=== PATIENT | female | born 1960 | race Caucasian/White ===

== ENCOUNTER → 2016-11-04 | Outpatient (CLI) | payer BC, OTHER ==
[~2016-11-04] MED LIST: AZEL1.5M; CARV6.252 PO; CYCL10TA6 PO; IBUP-1427 PO; LISI-729 PO; LISI5TAB3 PO; LORA-741 PO; MULTTAB58 PO; ONDA8TAB6 PO; THIA100T11 PO; TRAM-10 PO; premarin cream
== END | disposition home or self-care (01) ==
LOC: C.CPL 12:34
PROVIDERS: ATTEND Orthopaedic Surgery
DX: Z01.810 Encounter for preprocedural cardiovascular examination (principal)

== ENCOUNTER 2017-02-13 11:29 | Emergency (ER) | payer BC ==
[~2017-02-13] VITALS: Ht 162.6 cm; Wt 66.2 kg
[~2017-02-13 11:29] MED LIST changes: -CYCL10TA6 PO; -LISI-729 PO; -ONDA8TAB6 PO
[2017-02-13 11:35] VITALS: TEMP 36.8; Ht 162.6 cm; Wt 66.2 kg
[2017-02-13] MEDS ORDERED: LISI-729 PO (11:46)
[2017-02-13] MEDS ORDERED: ONDA8TAB6 PO (11:46)
[2017-02-13 12:30] LABS: ISTAT CREATININE 0.8 mg/dl (0.6-1.3); ISTAT HEMOGLOBIN 13.9 g/dl (12.0-16.0); ISTAT IONIZED CALCIUM 1.24 mmol/l (1.12-1.32)
[2017-02-13] MEDS ORDERED: CYCL10TA6 PO (13:21)
[2017-02-13 14:05] VITALS: BP 145/90; PULSE 83; O2SAT 100
--- NOTE | 2017-02-13 20:23 | EMERGENCY ROOM VISIT NOTE ---
History First contact with patient: 11:52 Chief Complaint: BACK PAIN Stated Complaint: BACK SPASMS PAST WEEK, ANOREXIA/VOMITING History of Present Illness The patient is a 56 year old female who presents to the Emergency Room with complaints of lower back pain//, as well as poor appetite and intermittent vomiting. The patient reports that she has a history of chronic back pain. However, she believes that her back pain has recently been exacerbated after undergoing an extensive left shoulder surgery in October by Dr. Negrete. The patient reports that she has had to sleep on her right side. She denies any recent injury to her back. She has been seen by the [facility] for her back. She reports that they wanted to send her to [place] for further management. She has been unable to follow-up with her other appointments because of her surgery to the shoulder. She reports that she had to miss her last for physical therapy sessions for her shoulder because of her back. She did discuss this via telephone conversation with Dr. Negrete's office, and was told to try to continue with her physical therapy. The patient has been intermittently apply ice and using a TENS unit for her back. She will try to do some back exercises without any significant relief. She denies any pain extending into the buttocks or down the legs. She denies any chest pain, shortness of breath or abdominal pain. Her pain seems to be worsened with movement. She currently denies any discomfort. Review of Systems 10 system review was performed and was negative except for pertinent positives and negatives as indicated in history of present illness Past Medical/Surgical History Medical Problems: (1) Cardiac catheterization (2) History of - section Family History Cancer Heart disease Hypertension Social History Smoking Status: Never Smoker Alcohol Use: heavy Marital Status: Housing Status: lives with family Occupation Status: employed Current/Historical Medications Scheduled Carvedilol (Coreg), 6.25 MG PO BID Lisinopril (Zestril), 5 MG PO DAILY Multiple Vitamin (Multivitamin), 1 TABLET PO DAILY Thiamine Hcl (Vitamin B-1), 30 MG PO QAM Tramadol (Ultram), 1 TAB PO TID [premarin cream], 20 days monthly Scheduled PRN Azelastine HCl-Fluticasone Pro (Dermacinrx Azenase Anand 137 & 50 Mcg/Act), for prn Cyclobenzaprine Hcl (Flexeril), 10 MG PO TID PRN for spasm Ibuprofen Tab (Motrin), 1 TAB PO TID PRN for prn Lorazepam (Ativan), 0.5 MG PO for prn Ondansetron Hcl (Zofran), 8 MG PO Q8 PRN for Nausea Physical Exam Vital Signs Date Time Temp Pulse Resp B/P (MAP) Pulse Ox O2 Delivery O2 Flow Rate FiO2 02/13/17 14:05 83 145/90 100 02/13/17 11:35 36.8 90 16 126/87 98 Room Air Physical Exam CONSTITUTIONAL: Healthy and well nourished. Alert and oriented X 3 with positive affect. Patient does not appear in any acute distress. HEENT: Normocephalic, atraumatic. Pupils equal, round and reactive. No scleral icterus or conjunctival injection/pallor. NECK: Full active range of motion without discomfort. RESPIRATORY: Clear to auscultation bilaterally with no wheezing, crackles, rhonchi or stridor. CARDIOVASCULAR: Regular rate and rhythm with no murmurs, rubs or gallops. GASTROINTESTINAL: Bowel sounds present in all quadrants. Soft and nontender to palpation. MUSCULOSKELETAL: Examination shows mild tenderness to palpation through the central and lower lumbar paraspinous muscles. No palpable possible spasms for rigidity noted. No tenderness to palpation through the SI joints. Negative sitting straight leg raise. Negative logroll. Ankle plantar/dorsiflexion strength is 5 out of 5 and symmetric bilaterally. INTEGUMENTARY: No rash or other significant dermatologic conditions noted. Specifically the patient has no thoracic or lumbar dermatomal rashes. NEUROLOGIC: Lower extremity deep tendon reflexes are 2+ and symmetric bilaterally. Medical Decision & Procedures Laboratory Results Test 02/13/17 12:12 Bedside Hemoglobin 13.9 g/dl (12.0-16.0) Bedside Hematocrit 41 % (37-47) Bedside Sodium 132 mEq/L (135-144) Bedside Potassium 4.0 mEq/L (3.3-5.0) Bedside Chloride 96 mEq/L (101-112) Bedside Total CO2 25 mEq/l (24-31) Anion Gap 16.0 mmol/L (16-25) Bedside Blood Urea Nitrogen 7 mg/dl (7-18) Bedside Creatinine 0.8 mg/dl (0.6-1.3) Bedside Glucose (other) 102 mg/dl (70-99) Bedside Ionized Calcium (Loni) 1.24 mmol/l (1.12-1.32) I-STAT labs were reviewed, showing a mild hyponatremia. Potassium is normal. ED Course Patient history and physical exam were performed. Nurse's notes were reviewed. Vital signs were reviewed and were normal. I also reviewed prior electronic medical records, showing that the patient was seen at the [facility] on 09/06/2016. She was referred there from her PCP for polyarthritic pain and thoracic back pain. I explained to the patient that her symptoms are likely secondary to muscle irritability. She denies any recent trauma to warrant imaging studies. The patient is concerned that she may have electrolyte abnormalities that causing her muscle irritability. She attributes this to her poor appetite and vomiting, which she denies as any significant loss of fluids. I did elect to draw i-STAT labs, showing a mild hyponatremia, otherwise labs were normal. The patient was provided a prescription for Flexeril. She was encouraged to continue follow-up with her PCP for her back, and orthopedics for her Worker[employer] Compensation left shoulder management. She is welcome to return to the [facility] partner for an significant worsening pain, fever, abdominal pain or other concerning symptoms. The patient was happy with plan of care, and continued to deny any significant pain at the time of discharge. Medical Decision Medication Reconcilliation Current Medication List: was personally reviewed by me Blood Pressure Screening Patient's blood pressure: Normal blood pressure Impression Primary Impression: Strain of lumbar region Departure Information Prescriptions Cyclobenzaprine Hcl (FLEXERIL) 10 Mg Tab 10 MG PO TID Y for spasm, #15 TAB Prov: Markus Jones PA 02/13/17 Referrals No Doctor, Assigned (PCP) Patient Instructions My [facility] Problem Qualifiers Primary Impression: Strain of lumbar region Encounter type: initial encounter Qualified Codes: S39.012A - Strain of muscle, fascia and tendon of lower back, initial encounter
== END 2017-02-13 14:11 | disposition home or self-care (01) ==
LOC: C.EDB 11:30 → C.EDD 14:11
DX: S39.012A Strain of muscle, fascia and tendon of lower back, initial encounter (principal); X58.XXXA Exposure to other specified factors, initial encounter; G89.29 Other chronic pain; Z80.9 Family history of malignant neoplasm, unspecified; Z82.49 Family history of ischemic heart disease and other diseases of the circulatory system; Z79.899 Other long term (current) drug therapy

== ENCOUNTER 2020-09-15 15:24 | Inpatient (IN) ==
[2020-09-15] MEDS ORDERED: SODIUM CHLORIDE 0.9% 1000ML 1,000 ML IV ONE (16:14)
[2020-09-15] MEDS ORDERED: ONDANSETRON INJ 2 MG/ML 2 ML VIAL IV STA (16:14)
[2020-09-15] MEDS ORDERED: KETOROLAC TROMETHAMINE 15 MG/ML VIAL IV STA (16:14)
[2020-09-15 16:40] LABS: Basophils # (auto) 0.01 K/uL (0-0.2); Basophils % (auto) 0.1 %; Eosinophils # (auto) 0.13 K/uL (0-0.5); Eosinophils % (auto) 0.9 %; Hematocrit (blood only) 36.6 % (37-47); Hemoglobin 12.7 g/dL (12.0-16.0); Immature Granulocytes # (auto) 0.02 K/uL (0.00-0.02); Immature Granulocytes % (auto) 0.1 %; Lymphocytes % (auto) 10.9 %; Mean Corpuscular Hgb Conc 34.7 g/dL (32-36); Mean Corpuscular Volume 92.2 fL (80-100); Mean Platelet Volume 9.6 fL (7.4-10.4); Monocytes % (auto) 10.2 %; Neutrophils # (auto) 11.42 K/uL (1.4-6.5); Neutrophils % (auto) 77.8 %; Platelet Count 189 K/uL (130-400); RDW Standard Deviation 43.7 fL (36.4-46.3); Red Blood Count 3.97 M/uL (4.2-5.4); White Blood Count 14.68 K/uL (4.8-10.8)
[2020-09-15 16:56] LABS: Albumin Level 3.4 gm/dl (3.4-5.0); BUN Creatinine Ratio 17.8 (10-20); Bilirubin Direct 0.2 mg/dl (0-0.2); Calcium 9.7 mg/dl (8.5-10.1); Creatinine Clr Calc Pharmacy 94.2 ml/min; Est GFR (African American) 118.8; Est GFR (Non-African American) 102.5; Potassium 3.5 mmol/L (3.5-5.1)
[2020-09-15 16:59] LABS: Bilirubin,Total 0.7 mg/dl (0.2-1); Total Protein 7.4 gm/dl (6.4-8.2)
[2020-09-15 17:05] LABS: Appearance Urine Clear (Clear); Bacteria Urine Automated Negative (Negative); Blood Urine Trace (Negative); Color Urine Orange; Epithelial Cell Urine Auto >30 /lpf (0-5); Glucose Urine UA Negative (Negative); Ketones Urine 1+ (Negative); Leukocyte Esterase Urine Trace (Negative); Nitrite Urine Positive (Negative); Protein Urine 2+ (Negative); Specific Gravity Urine 1.032 (1.000-1.030); Urobilinogen Urine Negative (Negative)
[2020-09-15 17:06] LABS: Bilirubin Urine 1+ (Negative)
[2020-09-15 18:21] LABS: Influenza A virus by PCR Negative (Neg); Influenza B virus by PCR Negative (Neg); RSV by PCR Negative (Neg); SARS CoV2 RNA(COVID-19) InHosp NEGATIVE (Negative)
[2020-09-15] MEDS ORDERED: HYDROmorphone INJ 0.5 MG/0.5 ML SYR IV PRN (18:28)
[2020-09-15] MEDS ORDERED: ONDANSETRON INJ 2 MG/ML 2 ML VIAL IV PRN (18:28)
--- NOTE | 2020-09-15 18:46 | History & Physical Report ---
Date of Service September 15, 2020 Assessment & Plan (1) Acute pericarditis: Abdominal pain since Monday with nausea and vomiting no diarrhea Ultrasound evidence of dilated common duct without any stones with mild dilatation of the pancreatic duct as an outpatient CT scan did show mildly dilated fluid-filled small bowel loops with early SBO and minimal ascites Lipase elevated to more than 3000 We will keep her n.p.o. Intravenous fluid and electrolyte replacement IV pain medications and symptomatic medications We will get an MRCP done tomorrow and Fasting Lipid Profile GI consult tomorrow Leukocytosis Likely reactive Covid test has been negative We will monitor (2) Major depressive disorder: Remains stable We will continue current medications (3) Hypertension: We will continue lisinopril and carvedilol History of nonischemic cardiomyopathy Not having any cardiac symptoms now (4) History of alcohol dependence: No evidence of withdrawal (5) Solitary kidney: Has congenital absence of nenana left kidney GI prophylaxis We will give Protonix IV DVT prophylaxis Subcu Lovenox CODE STATUS Full History of Present Illness Chief Complaint: Abdominal pain since Monday last associated with nausea and vomiting Primary Care Provider: Piedad Chris MD She is a 59-year-old female with significant past medical history including major depressive disorder, uncomplicated alcohol dependence, history of nonischemic cardiomyopathy, solitary kidney on the right side and hypertension has been complaining of acute abdominal pain that started on Monday last. The pain was in the mid abdomen and that are associated with nausea and she has had vomiting couple of times since then. Denies any fever and/or chills. For the last 2 days she could not take anything much due to nausea and vomiting. Denies any alcohol intake. She has had an ultrasound done as an outpatient through her PCP which showed abnormalities as mentioned below and she was sent in to the ER for further evaluation' She was noted to be tachycardic in the emergency room, afebrile with abdominal pain and her lipase was noted to be high at 3320. She was admitted to [facility] telemetry unit for continuation of care Allergies Allergy/AdvReac Type Severity Reaction Status Date / Time ampicillin Allergy Intermediate HIVES Unverified 09/15/20 17:32 Penicillins Allergy Unknown Unknown Verified 09/15/20 17:32 Home Medications Medication Instructions Recorded Confirmed Type buprenorphine-naloxone 1 tab SUBLINGUAL QAM 12/15/19 09/15/20 History carvedilol [Coreg] 6.25 mg PO BID 12/15/19 09/15/20 History hydroxyzine HCl 5 mg PO BID PRN 12/15/19 09/15/20 History ipratropium bromide 2 spray INTRANASAL TID PRN 12/15/19 09/15/20 History lisinopril 5 mg PO PM 12/15/19 09/15/20 History meloxicam 7.5 mg PO DAILY 09/15/20 09/15/20 History vitamin B complex [B Complex] 1 tab PO QAM 09/15/20 09/15/20 History Past Med/Surg History Medical History (Updated 09/15/20 @ 18:41 by Alfredo Alex MD) Alcohol dependence Social History Smoking Status: Never smoker Feels Safe at Home: Yes Review of Systems Review of Systems: All systems reviewed & are unremarkable except as noted in HPI & below Physical Exam Physical Exam: Lying in bed very anxious with minimal pain in the abdomen Constitutional: well developed, well nourished and + ill appearing Eyes: PERRL, conjunctivae normal, anicteric sclerae ENMT: external ear and nose normal, oropharynx normal Neck: trachea midline, no thyromegaly Respiratory: no respiratory distress Auscultation: lungs clear to auscultation bilaterally Cardiovascular: Rate/Rhythm: regular rate and regular rhythm Heart Sounds: no murmur Gastrointestinal (Abdomen): Inspection/Auscultation: normal bowel sounds; abdomen not distended Percussion/Palpation: + abdomen tender (Minimally tender in the epigastrium) and abdomen soft Musculoskeletal: No acute arthritis in any joint Neurologic: Alert, awake and oriented x3. No focal sensory and motor deficit appreciated Psychiatric: A+Ox3, euthymic affect Lymphatic: no cervical or axillary lymphadenopathy Results & Data Results & Data ([facility]) Vital Signs (Past 12 Hours) Vital Signs Temp Pulse Resp BP Pulse Ox 09/15/20 17:30 105 H 23 143/96 H 97 09/15/20 17:00 109 H 21 149/82 H 98 09/15/20 16:30 105 H 19 145/91 H 97 09/15/20 16:22 107 H 24 150/93 H 100 09/15/20 15:27 36.1 C L 89 16 136/85 99 Laboratory Results Short CBC 09/15/20 Range/Units 16:30 WBC 14.68 H (4.8-10.8) K/uL Hgb 12.7 (12.0-16.0) g/dL Hct 36.6 L (37-47) % Plt Count 189 (130-400) K/uL BMP 09/15/20 16:30 Sodium 132 L Potassium 3.5 Chloride 97 L Carbon Dioxide 29 BUN 10 Creatinine 0.53 L Glucose 122 H Calcium 9.7 Liver Function 09/15/20 Range/Units 16:30 Total Bilirubin 0.7 (0.2-1) mg/dl Direct Bilirubin 0.2 (0-0.2) mg/dl AST 33 (15-37) U/L ALT 60 (12-78) U/L Alkaline Phosphatase 83 (45-117) U/L Albumin 3.4 (3.4-5.0) gm/dl Urine 09/15/20 Range/Units 16:30 Urine Color [place] Urine Appearance Clear (Clear) Urine pH 6.0 (4.5-7.5) Ur Specific [place] 1.032 H (1.000-1.030) Urine Protein 2+ H (Negative) Urine Glucose (UA) Negative (Negative) Diagnostic Findings CT of the abdomen and pelvis: IMPRESSION: 1. Multiple mildly dilated fluid-filled small bowel loops containing air-fluid levels. There is infiltration of the lower abdominal small bowel mesentery and there is low volume ascites. The distal ileum is of normal caliber. The findings are indicative of an early or partial small bowel obstruction. There is no pneumatosis. There is no portal venous gas. 2. Absent left kidney Medications Administered Current Inpatient Medications Enoxaparin Sodium (Enoxaparin Inj 40 Mg/0.4 Ml Syr) 40 mg SQ Q24H SANJUANA Stop: 10/15/20 18:29 Hydromorphone HCl (Hydromorphone Inj 0.5 Mg/0.5 Ml Syr) 0.5 mg IV Q4H PRN PRN Reason: Pain Stop: 09/29/20 18:27 Potassium Chloride/Dextrose/Sod Cl (D5nss + 20meq Kcl) 20 meq in 1,000 mls @ 125 mls/hr IV .Q8H SANJUANA Stop: 10/15/20 18:29 Ondansetron HCl (Ondansetron Inj 2 Mg/Ml 2 Ml Vial) 4 mg IV Q6H PRN PRN Reason: Nausea And Vomiting Stop: 10/15/20 18:29 Code Status & VTE Plan VTE Prophylaxis Plan VTE Prophylaxis will be ordered: Yes
[2020-09-15] MEDS: ENOXAPARIN INJ 40 MG/0.4 ML SYR SQ SCH (19:23)
[2020-09-15] MEDS: D5NSS + 20MEQ KCL 20 MEQ/1,000 ML BAG IV SCH (19:23)
--- NOTE | 2020-09-15 20:20 | XRay Report ---
XR abdomen 2V w PA chest CLINICAL HISTORY: epigastric pain COMPARISON STUDY: 01/02/2020 FINDINGS: Erect chest reveals no free air. There is no focal pulmonary consolidation. Erect and supin e views the abdomen reveal mild gaseous prominence the colon. There are no transition zones to indica te bowel obstruction. IMPRESSION: No evidence of bowel obstruction. No evidence of free air. ACT 112: Negative or not required by law. Electronically signed by: Deshawn Charles M.D. 09/15/2020 8:19 PM
[2020-09-15] MEDS ORDERED: IPRATROPIUM BROMIDE NASAL SPRAY 0.06% 15ML NAE PRN (21:14)
[2020-09-15] MEDS ORDERED: hydrOXYzine HCl 10 MG TAB PO PRN (21:14)
[2020-09-15] MEDS ORDERED: PANTOprazole 40 MG in SYRINGE 0 ML IV ONE (21:30)
[2020-09-15] MEDS: carvediloL 6.25 MG TAB PO SCH (21:53)
[2020-09-15] MEDS: lisinopril 5 MG TAB PO SCH (21:54)
--- NOTE | 2020-09-16 01:32 | Emergency Department Note ---
History of Present Illness General Chief Complaint: Abdominal Pain Stated Complaint: REFERRED BY DR. SHIPMAN Time Seen by Provider: 09/15/20 16:11 History of Present Illness Provider Complaint: abdominal pain Onset (ago): 2 day(s) Pain Consistency: constant Location: epigastric Radiation: none Severity: moderate Maximum Pain Intensity: 8 Current Pain Intensity: 8 Quality: + stabbing and + sharp Relieved By: + nothing Exacerbated By: + nothing Context: no foreign travel, no possible food poisoning, no sick contacts, no recent antibiotic use and no recent surgery/procedure Associated Symptoms: + nausea and + vomiting; no diarrhea, no fever, no chills, no constipation, no dysuria, no hematemesis, no hematochezia, no melena, no hematuria, no anorexia, no headache, no neck pain, no back pain, no chest pain, no weakness and no breathing difficulty Home Medications Medication Instructions Recorded Confirmed Type buprenorphine-naloxone 1 tab SUBLINGUAL QAM 12/15/19 09/15/20 History carvedilol [Coreg] 6.25 mg PO BID 12/15/19 09/15/20 History hydroxyzine HCl 5 mg PO BID PRN 12/15/19 09/15/20 History ipratropium bromide 2 spray INTRANASAL TID PRN 12/15/19 09/15/20 History lisinopril 5 mg PO PM 12/15/19 09/15/20 History meloxicam 7.5 mg PO DAILY 09/15/20 09/15/20 History vitamin B complex [B Complex] 1 tab PO QAM 09/15/20 09/15/20 History Allergies Allergy/AdvReac Type Severity Reaction Status Date / Time ampicillin Allergy Intermediate HIVES Unverified 09/15/20 17:32 Penicillins Allergy Unknown Unknown Verified 09/15/20 17:32 Past Med/Surg History Medical History (Updated 09/16/20 @ 01:32 by Jose L Arenas) Acute pericarditis (Unknown) Alcohol dependence Major depressive disorder No pertinent family history Solitary kidney Surgical History (Updated 09/16/20 @ 01:27 by Jose L Arenas) No pertinent past surgical history Social History Smoking Status: Never smoker Hx Alcohol Use: Yes Alcohol type: beer Hx Substance Use: Yes Substance Use Type Other:: Quit 1982 Preferred Language: Wolof Beliefs That Will Affect Care: None Current Living Situation: Spouse and Family Feels Safe at Home: Yes Safety Concerns: Feels Safe At This Time Assistive Devices: Hearing Aid - Bilateral Review of Systems A total of 10 systems reviewed and were otherwise negative Physical Exam Vital Signs: Vital Signs - 24 hr 09/15/20 15:27 09/15/20 16:22 09/15/20 16:30 Temperature 36.1 C L Temperature Source Temporal Artery Sc an Pulse Rate 89 107 H 105 H Pulse Rate from Sp O2 Sensor 108 H 106 H Respiratory Rate 16 24 19 Respiratory Effort / Characteristics Non-Labored Respiratory Depth Normal Blood Pressure 136/85 150/93 H 145/91 H Blood Pressure Hilda n 102 112 109 Pulse Oximetry 99 100 97 Oxygen Delivery Me thod Room Air Sepsis Recent Feve r Within 48 Hours No Sepsis New/Unexpla ined Change in Men erin Status No Sepsis Action Take n by Nursing No Action Required 09/15/20 16:33 09/15/20 17:00 09/15/20 17:30 Temperature Temperature Source Pulse Rate 109 H 105 H Pulse Rate from Sp O2 Sensor 110 H 107 H Respiratory Rate 21 23 Respiratory Effort / Characteristics Respiratory Depth Blood Pressure 149/82 H 143/96 H Blood Pressure Hilda n 104 111 Pulse Oximetry 98 97 Oxygen Delivery Me thod Room Air Sepsis Recent Feve r Within 48 Hours Sepsis New/Unexpla ined Change in Men erin Status Sepsis Action Take n by Nursing Physical Exam: Physical Exam GENERAL: She is oriented to person, place, and time. She appears well-developed and well-nourished. She does not appear distressed. HENT: Exam performed. -Head: Normocephalic and atraumatic. -Right Ear: External ear normal. No mastoid tenderness. -Left Ear: External ear normal. No mastoid tenderness. -Mouth/Throat: The oropharynx is clear and moist. No trismus in the jaw. No dental abscesses or uvula swelling. No oropharyngeal exudate or tonsillar abscesses. EYES: Conjunctivae and EOM are normal. Pupils are equal, round, and reactive to light. Right eye exhibits no discharge. Left eye exhibits no discharge. No scleral icterus. NECK: Normal range of motion. Neck supple. No JVD present. No spinous process tenderness present. No carotid bruit present. No rigidity. No tracheal deviation and normal range of motion present. No Brudzinski's sign and no Kernig's sign noted. CV: Normal rate, regular rhythm, normal heart sounds and intact distal pulses. There is no peripheral edema. Palpable radial pulses bue. PULM/CHEST: Effort normal and breath sounds normal. No respiratory distress. No stridor. She has no wheezes. She has no rales. -Chest Wall: She exhibits no tenderness. ABD: The abdomen is soft. Bowel sounds are normal. She has no distension. No mass is present. There is tenderness to palpation of the right upper quadrant and epigastric area. There is no rebound, no guarding, no Hawley's sign and no tenderness at McBurney's point. Rovsig negative MUSC/SKEL: Normal range of motion. There is no peripheral edema, tenderness or deformity. LYMPH: No cervical adenopathy. NEURO: She is alert and oriented to person, place, and time. She has normal strength. No cranial nerve deficit or sensory deficit. Coordination and gait normal. GCS eye subscore is 4. GCS verbal subscore is 5. GCS motor subscore is 6. Cerebellar tests wnl. SKIN: Skin is warm and dry. She is not diaphoretic. PSYCH: She has a normal mood and affect. Behavior is normal. Judgment and thought content normal. Course Course 1611: The patient was evaluated in room C9. A complete history and physical exam was performed Cardiac monitoring: An order was placed for continuous cardiac monitoring. The monitor shows a rate of 100 with sinus rhythm 1715: Vital signs stable. Patient had an outpatient ultrasound. Ultrasound was obtained by Yolanda salas which showed: Dilated common duct. No cholelithiasis visualized in the duct further evaluation by MRCP recommended. Mild prominence of the pancreatic duct. Attention recommended on follow-up MRCP. Labs show a leukocytosis of 14.68. Lipase is elevated at 3320. We will admit the patient to the [facility] hospitalist team Dr. Glenda estrada Administered Medications Carvedilol (Carvedilol 6.25 Mg Tab) 6.25 mg PO BID SANJUANA Stop: 10/15/20 21:13 Last Admin: 09/15/20 21:53 Dose: 6.25 mg Documented by: [id number] Enoxaparin Sodium (Enoxaparin Inj 40 Mg/0.4 Ml Syr) 40 mg SQ Q24H SANJUANA Stop: 10/15/20 18:29 Last Admin: 09/15/20 19:23 Dose: 40 mg Documented by: [id number] Potassium Chloride/Dextrose/Sod Cl (D5nss + 20meq Kcl) 20 meq in 1,000 mls @ 125 mls/hr IV .Q8H SANJUANA Stop: 10/15/20 18:29 Last Admin: 09/15/20 19:23 Dose: 125 mls/hr Documented by: [id number] Lisinopril (Lisinopril 5 Mg Tab) 5 mg PO PM SANJUANA Stop: 10/15/20 21:13 Last Admin: 09/15/20 21:54 Dose: 5 mg Documented by: [id number] Discontinued Medications Sodium Chloride (Nss 1000ml) 1,000 mls @ 999 mls/hr IV .Q1H1M ONE Stop: 09/15/20 17:14 Last Infusion: 09/15/20 17:35 Dose: 0 mls/hr Documented by: [id number] Admin: 09/15/20 16:23 Dose: 999 mls/hr Documented by: [id number] Pantoprazole Sodium 40 mg/ (Syringe) 10 mls @ 5 mls/min IV TODAY@2130 ONE Stop: 09/15/20 21:31 Last Admin: 09/15/20 21:54 Dose: 5 mls/min Documented by: [id number] Ketorolac Tromethamine (Ketorolac Tromethamine 15 Mg/Ml Vial) 15 mg IV NOW STA Stop: 09/15/20 16:15 Last Admin: 09/15/20 16:22 Dose: 15 mg Documented by: [id number] Ondansetron HCl (Ondansetron Inj 2 Mg/Ml 2 Ml Vial) 4 mg IV NOW STA Stop: 09/15/20 16:15 Last Admin: 09/15/20 16:22 Dose: 4 mg Documented by: [id number] Medical Decision Making Laboratory Data Result diagrams: 09/15/20 16:30 09/15/20 16:30 Lab Results 09/15/20 09/15/20 09/15/20 Range/Units 16:30 16:30 16:30 WBC 14.68 H (4.8-10.8) K/uL RBC 3.97 L (4.2-5.4) M/uL Hgb 12.7 (12.0-16.0) g/dL Hct 36.6 L (37-47) % MCV 92.2 (80-100) fL MCH 32.0 (25-34) pg MCHC 34.7 (32-36) g/dL RDW Std Deviation 43.7 (36.4-46.3) fL RDW Coeff of Evan 13.0 (11.5-14.5) % Plt Count 189 (130-400) K/uL MPV 9.6 (7.4-10.4) fL Immature Gran % (Auto) 0.1 % Neut % (Auto) 77.8 % Lymph % (Auto) 10.9 % [place] % (Auto) 10.2 % Eos % (Auto) 0.9 % Baso % (Auto) 0.1 % Neut # (Auto) 11.42 H (1.4-6.5) K/uL Lymph # (Auto) 1.60 (1.2-3.4) K/uL [place] # (Auto) 1.50 H (0.11-0.59) K/uL Eos # (Auto) 0.13 (0-0.5) K/uL Baso # (Auto) 0.01 (0-0.2) K/uL Immature Gran # (Auto) 0.02 (0.00-0.02) K/uL Sodium 132 L (136-145) mmol/L Potassium 3.5 (3.5-5.1) mmol/L Chloride 97 L (98-107) mmol/L Carbon Dioxide 29 (21-32) mmol/L Anion Gap 6.0 (3-11) BUN 10 (7-18) mg/dl Creatinine 0.53 L (0.6-1.2) mg/dl Est Cr Clr Drug Dosing 94.2 ml/min Est GFR ( Amer) 118.8 Est GFR (Non-Af Amer) 102.5 BUN/Creatinine Ratio 17.8 (10-20) Glucose 122 H (70-99) mg/dl Calcium 9.7 (8.5-10.1) mg/dl Total Bilirubin 0.7 (0.2-1) mg/dl Direct Bilirubin 0.2 (0-0.2) mg/dl AST 33 (15-37) U/L ALT 60 (12-78) U/L Alkaline Phosphatase 83 (45-117) U/L Total Protein 7.4 (6.4-8.2) gm/dl Albumin 3.4 (3.4-5.0) gm/dl Lipase 3320 H (73-393) U/L Urine Color [place] Urine Appearance Clear (Clear) Urine pH 6.0 (4.5-7.5) Ur Specific [place] 1.032 H (1.000-1.030) Urine Protein 2+ H (Negative) Urine Glucose (UA) Negative (Negative) Urine Ketones 1+ H (Negative) Urine Blood Trace H (Negative) Urine Nitrite Positive A (Negative) Urine Bilirubin 1+ H (Negative) Urine Urobilinogen Negative (Negative) Ur Leukocyte Esterase Trace H (Negative) Urine WBC (Auto) 10-30 H (0-5) /hpf Urine RBC (Auto) 5-10 H (0-4) /hpf U Hyaline Cast (Auto) 5-10 H (0-5) /lpf U Epithel Cells (Auto) >30 H (0-5) /lpf Urine Bacteria (Auto) Negative (Negative) COVID-19 Eval Order SARS-CoV-2 (PCR) (Negative) Influenza Type A (PCR) (Neg) Influenza Type B (PCR) (Neg) RSV (RT-PCR) (Neg) 09/15/20 09/15/20 Range/Units 17:28 17:28 WBC (4.8-10.8) K/uL RBC (4.2-5.4) M/uL Hgb (12.0-16.0) g/dL Hct (37-47) % MCV (80-100) fL MCH (25-34) pg MCHC (32-36) g/dL RDW Std Deviation (36.4-46.3) fL RDW Coeff of Evan (11.5-14.5) % Plt Count (130-400) K/uL MPV (7.4-10.4) fL Immature Gran % (Auto) % Neut % (Auto) % Lymph % (Auto) % [place] % (Auto) % Eos % (Auto) % Baso % (Auto) % Neut # (Auto) (1.4-6.5) K/uL Lymph # (Auto) (1.2-3.4) K/uL [place] # (Auto) (0.11-0.59) K/uL Eos # (Auto) (0-0.5) K/uL Baso # (Auto) (0-0.2) K/uL Immature Gran # (Auto) (0.00-0.02) K/uL Sodium (136-145) mmol/L Potassium (3.5-5.1) mmol/L Chloride (98-107) mmol/L Carbon Dioxide (21-32) mmol/L Anion Gap (3-11) BUN (7-18) mg/dl Creatinine (0.6-1.2) mg/dl Est Cr Clr Drug Dosing ml/min Est GFR ( Amer) Est GFR (Non-Af Amer) BUN/Creatinine Ratio (10-20) Glucose (70-99) mg/dl Calcium (8.5-10.1) mg/dl Total Bilirubin (0.2-1) mg/dl Direct Bilirubin (0-0.2) mg/dl AST (15-37) U/L ALT (12-78) U/L Alkaline Phosphatase (45-117) U/L Total Protein (6.4-8.2) gm/dl Albumin (3.4-5.0) gm/dl Lipase (73-393) U/L Urine Color Urine Appearance (Clear) Urine pH (4.5-7.5) Ur Specific [place] (1.000-1.030) Urine Protein (Negative) Urine Glucose (UA) (Negative) Urine Ketones (Negative) Urine Blood (Negative) Urine Nitrite (Negative) Urine Bilirubin (Negative) Urine Urobilinogen (Negative) Ur Leukocyte Esterase (Negative) Urine WBC (Auto) (0-5) /hpf Urine RBC (Auto) (0-4) /hpf U Hyaline Cast (Auto) (0-5) /lpf U Epithel Cells (Auto) (0-5) /lpf Urine Bacteria (Auto) (Negative) COVID-19 Eval Order CovFluRsv at [facility] SARS-CoV-2 (PCR) NEGATIVE (Negative) Influenza Type A (PCR) Negative (Neg) Influenza Type B (PCR) Negative (Neg) RSV (RT-PCR) Negative (Neg) Imaging Data Radiologist's Impression: Chest/Abdomen X-ray 09/15/20 16:43 XR abdomen 2V w PA chest CLINICAL HISTORY: epigastric pain COMPARISON STUDY: 01/02/2020 FINDINGS: Erect chest reveals no free air. There is no focal pulmonary consolidation. Erect and supine views the abdomen reveal mild gaseous prominence the colon. There are no transition zones to indicate bowel obstruction. IMPRESSION: No evidence of bowel obstruction. No evidence of free air. ACT 112: Negative or not required by law. Electronically signed by: Deshawn Charles M.D. 09/15/2020 8:19 PM [facility] Narrative Vital signs stable. Patient had an outpatient ultrasound. Ultrasound was obtained by Yolanda salas which showed: Dilated common duct. No cholelithiasis visualized in the duct further evaluation by MRCP recommended. Mild prominence of the pancreatic duct. Attention recommended on follow-up MRCP. Labs show a leukocytosis of 14.68. Lipase is elevated at 3320. [facility] Glenda estrada Impression & Plan Pancreatitis Discharge Plan Visit Data Chief Complaint: Abdominal Pain Stated Complaint: REFERRED BY DR. SHIPMAN ED Provider: Jose L Arenas Discharge Problem: Pancreatitis Patient Disposition: Admitted As Inpatient Discharge Instructions Interventions: ED Discharge Assessment Last Done: 09/15/20 19:55 Discharge Problem: Pancreatitis Qualifiers: Chronicity: acute Pancreatitis type: unspecified pancreatitis type Acute pancreatitis complication: unspecified Qualified Code(s): K85.90 - Acute pancreatitis without necrosis or infection, unspecified
[2020-09-16] MEDS: D5NSS + 20MEQ KCL 20 MEQ/1,000 ML BAG IV SCH (04:08)
--- NOTE | 2020-09-16 06:47 | CT Scan Report ---
CT OF THE HEAD WITHOUT CONTRAST CLINICAL HISTORY: blurred vision COMPARISON STUDY: No previous studies for comparison. CT DOSE: 729.78 mGycm TECHNIQUE: Helical axial images of the head were obtained without IV contrast. Automated exposure con trol was utilized for the study. A dose lowering technique was utilized adhering to the principles o f ALARA. FINDINGS: No acute intracranial hemorrhage, midline shift or mass effect is present. The ventricular system is unremarkable. The basal cisterns are patent. No extra-axial collections are present. There are no findings to suggest acute dural sinus thrombosis or acute territorial infarct. No significant calvarial abnormalities are present. Visualized portions of the sinuses and mastoid air cells are parmjit ar. Incidental note is made of a defect within the nasal septum. IMPRESSION: No acute intracranial findings. ACT 112: Negative or not required by law. Electronically signed by: William Hawk M.D. 09/16/2020 6:46 AM
[2020-09-16 08:14] LABS: Basophils # (auto) 0.01 K/uL (0-0.2); Basophils % (auto) 0.1 %; Eosinophils # (auto) 0.16 K/uL (0-0.5); Eosinophils % (auto) 1.5 %; Hematocrit (blood only) 31.9 % (37-47); Immature Granulocytes # (auto) 0.03 K/uL (0.00-0.02); Immature Granulocytes % (auto) 0.3 %; Lymphocytes # (auto) 1.43 K/uL (1.2-3.4); Lymphocytes % (auto) 13.1 %; Mean Corpuscular Hemoglobin 32.1 pg (25-34); Mean Corpuscular Hgb Conc 34.5 g/dL (32-36); Mean Platelet Volume 9.7 fL (7.4-10.4); Monocytes # (auto) 0.96 K/uL (0.11-0.59); Monocytes % (auto) 8.8 %; Neutrophils # (auto) 8.35 K/uL (1.4-6.5); Neutrophils % (auto) 76.2 %; Platelet Count 177 K/uL (130-400); RDW Coefficient of Variation 13.2 % (11.5-14.5); RDW Standard Deviation 44.6 fL (36.4-46.3); Red Blood Count 3.43 M/uL (4.2-5.4); White Blood Count 10.94 K/uL (4.8-10.8)
[2020-09-16 08:47] LABS: Albumin Level 2.7 gm/dl (3.4-5.0); BUN Creatinine Ratio 16.9 (10-20); Calcium 8.4 mg/dl (8.5-10.1); Creatinine Clr Calc Pharmacy 114.8 ml/min; Est GFR (African American) 123.6; Est GFR (Non-African American) 106.6; Magnesium 2.1 mg/dl (1.8-2.4); Potassium 3.6 mmol/L (3.5-5.1)
--- NOTE | 2020-09-16 08:52 | Magnetic Resonance Report ---
MRCP CLINICAL HISTORY: Dilated common bile duct and dilated pancreatic duct. COMPARISON STUDY: Abdominal CT dated 12/15/2019. TECHNIQUE: Abdominal MRCP is performed utilizing various T2-weighted sequences in the axial and coron al planes. IV contrast was not administered for this examination. 3-D reformats are created and asses sed. FINDINGS: There is marked dilatation of the common bile duct which measures up to 1.7 cm in diameter. There is mild to moderate intrahepatic biliary ductal dilatation. These findings have increased from the 020 CT scan. There is no definite evidence of choledocholithiasis. There is only mild prominence of t he pancreatic duct which measures up to 4 mm diameter. Pancreas divisum is noted. The gallbladder is normal as imaged with no gallstones clearly identified. The unenhanced liver, spleen, adrenal glands, and right kidney are grossly normal. The left kidney is not identified and presumed surgically absent. Trace perisplenic ascites is noted. No bowel obstruct ion is identified. The pancreas is grossly unremarkable but not well evaluated. No destructive bony l esion is seen. No upper abdominal lymphadenopathy is identified. IMPRESSION: 1. There is intra and extrahepatic biliary ductal dilatation, with mild prominence of the pancreatic duct. This has increased from previous. 2. There is no definite evidence of choledocholithiasis. Etiologies such as biliary stricture or less likely obstructing mass lesion are differential considerations. Correlation with ERCP is recommended . 3. No mass lesion is clearly identified. This is not well assessed on this examination. ACT 112: Positive. There are findings on this exam that require communication between the performing entity and the patient following Patient Test Result Information Act ([place] Act 112) guidelines. Dictated: 09/16/2020 7:35 AM Transcribed: 09/16/2020 7:52 AM [place] [id number] Electronically signed by: Rizwan Hadley M.D. 09/16/2020 8:51 AM
[2020-09-16 08:54] LABS: Albumin Globulin Ratio 0.8 (0.9-2); Globulin 3.3 gm/dl (2.5-4.0); Phosphorus 1.6 mg/dl (2.5-4.9)
--- NOTE | 2020-09-16 08:55 | Gastrointestinal Consultation ---
Date of Consultation September 16, 2020 Assessment & Plan (1) Pancreatitis: Acute pancreatitis likely from alcohol. IV hydration, bowel rest. Clear liquids if no procedures today. EUS, ERCP- timing to be determined. Please continue to follow CBC, CMP, lipase, LFTs during admission. Discussed alcohol abstention. Pt is motivated and believes she will be able to abstain. Present on Admission?: Yes (2) History of alcohol dependence: Supervising Physician Co-Signing Physician Notes Attg add: I interviewed and exmained pt, reviewed chart and labs. Pt with h/o heavy alcohol, also suboxone use admit with 2 day h/o epigastric pain, poor appetite, found to have lipase > 3k with nl LFT's/bili, uls without g stones but showing robbie dil, MRCP with double duct sign without obvious stone or mass. Pt denies chronic abd pain or signs of chronic panc, did have CT last December during ER visit for acute self limited pain which showed mild PD dilation, also evidence of enteritis. At present, she looks well, is well developed, with no abd pain on exam, and voicing hunger. Labs do not show hemoconcentration, but mucous membranes mildly dry and she describes her urine as dark. Trigs WNL, Ca WNL, albumin 2.7 today from 3.2 yesterday. A/P: Pancreatitis in alcoholic, double duct sign on imaging: - IVF's, diet as tolerated, analagesia. Need for alcohol cessation discussed. EUS today r/o CBD stone, may need follow up imaging in 1-2 mos once pancreatitis resolved to ensure that there is no occult pancreatic mass. History of Present Illness Reason for Consultation: Acute pancreatitis Requesting Physician: Dr. Hassan Attending Physician: Scarlet Hassan MD History of Present Illness Ms. Madonna Rucker is a 59 yr old female pt of Dr. Piedad Burnham with a hx of depression, increased alcohol intake, history of nonischemic cardiomyopathy and pericarditits (2011), solitary kidney on the right side and HTN. She presented to the ED yesterday for mid/upper abd pain with nausea/vomiting that began on Monday (3 days prior). She also some diaphoresis and was a bit tachycardic yesterday. She drinks about 10 rums/night (about 2-4 ounces with sparkling water, refilling about 5 times every evening). She had one prior episode of similar pain in December that resolved without medical attention. Pain had begun suddenly on Monday, prior to eating/drinking anything. Since then, she hasn't drank any alcohol or eaten any food. She did pass one formed BM yesterday. No yellow skin or eyes, no fevers but had sweating. She was seen by her PCP. US was ordered showed bile duct dilation and she was directed to present to the ED for this and the tachycardia.On arrival MRCP with mild pancreatic duct and intra/extrahepatic bile duct dilation w/o evidence of gallbladder disease or bile duct stones. On arrival, Lipase elevated at 3320 and LFTs mildly elevated with AST 38, ALT 47, Bilirubin and Alk phos were normal. This morning, she did not sleep due to hospital interruptions. Pain continues to be present but is much improved. She is awake, alert, oriented, hemodynamically stable. Allergies Allergy/AdvReac Type Severity Reaction Status Date / Time ampicillin Allergy Intermediate HIVES Unverified 09/15/20 17:32 Penicillins Allergy Unknown Unknown Verified 09/15/20 17:32 Home Medications Medication Instructions Recorded Confirmed Type buprenorphine-naloxone 1 tab SUBLINGUAL QAM 12/15/19 09/15/20 History carvedilol [Coreg] 6.25 mg PO BID 12/15/19 09/15/20 History hydroxyzine HCl 5 mg PO BID PRN 12/15/19 09/15/20 History ipratropium bromide 2 spray INTRANASAL TID PRN 12/15/19 09/15/20 History lisinopril 5 mg PO PM 12/15/19 09/15/20 History meloxicam 7.5 mg PO DAILY 09/15/20 09/15/20 History vitamin B complex [B Complex] 1 tab PO QAM 09/15/20 09/15/20 History Patient History Medical History (Updated 09/16/20 @ 01:32 by Jose L Arenas) Acute pericarditis (Unknown) Alcohol dependence Major depressive disorder No pertinent family history Solitary kidney Surgical History (Updated 09/16/20 @ 01:27 by Jose L Arenas) No pertinent past surgical history Social History Smoking Status: Never smoker Hx Alcohol Use: Yes Alcohol type: beer Hx Substance Use: Yes Substance Use Type Other:: Quit 1982 Preferred Language: Jordanian Beliefs That Will Affect Care: None Current Living Situation: Spouse and Family Feels Safe at Home: Yes Safety Concerns: Feels Safe At This Time Assistive Devices: None Review of Systems Review of Systems: ROS: Gen: Denies weakness, fevers, weight loss Eyes: No yellow or eye redness, or pain, no recent vision changes Resp: No SOB, no cough Cardio: + some fast beats yesterday, no irregular beats, no chest pain GI: See HPI : Denies pain on urination Skin: No jaundice, itching or new rashes Physical Exam Constitutional: WD/WN, vitals as above Eyes: PERRL, conjunctivae normal, anicteric sclerae ENMT: external ear and nose normal, oropharynx normal Neck: trachea midline, no thyromegaly Respiratory: normal respiratory effort, lungs clear to auscultation Cardiovascular: RRR, no murmur, no edema Gastrointestinal (Abdomen): Inspection/Auscultation: abdomen normal to inspection; abdomen not distended Percussion/Palpation: + abdomen tender (mid an upper abd tenderness) and abdomen soft; no hepatosplenomegaly and no splenomegaly Musculoskeletal: no cyanosis or clubbing, extremities motor strength 5/5 Skin: no rashes, warm and dry Neurologic: PERRL, EOMI, accommodation nl, no face palsy, no dysarthria Psychiatric: A+Ox3, euthymic affect Lymphatic: no cervical or axillary lymphadenopathy Results & Data ([facility]) Vital Signs (Past 12 Hours) Vital Signs Temp Pulse Pulse Resp BP Pulse Ox 09/16/20 07:35 88 09/16/20 06:28 37.1 C 90 18 137/80 94 09/16/20 02:48 36.9 C 98 H 19 110/63 95 09/15/20 23:50 120 H 09/15/20 23:49 96 H 09/15/20 23:17 36.6 C 73 19 126/79 100 09/15/20 22:11 36.7 C 102 H 16 153/84 H 97 Laboratory Results WBC 10.9, Hb 11, Hct 31, Platelets 31, [id number], Na 133, K 3.6, Cl 101, CO2 28, BN 8, Cr 0.47, glucose 127, T Bili 1.0, AST 38, ALT 47, Alk Phos 71, Lipase 3320, INR 0.9 Diagnostic Findings OP US in [facility] on 09/15/20: 1. Dilated common duct. No cholelithiasis in the visualized duct. Further evaluation by MRCP recommended. 2. Mild prominence of the pancreatic duct. Attention recommended on follow-up MRCP. 3. Mildly increased liver echogenicity suggesting steatosis. 4. Mildly enlarged right kidney. The kidneys otherwise normal in appearance. MRCP 09/15/20: 1. There is intra and extrahepatic biliary ductal dilatation, with mild prominence of the pancreatic duct. This has increased from previous. 2. There is no definite evidence of choledocholithiasis. Etiologies such as biliary stricture or less likely obstructing mass lesion are differential considerations. Correlation with ERCP is recommended. 3. No mass lesion is clearly identified. This is not well assessed on this examination. Abd X-ray: No evidence of bowel obstruction. No evidence of free air. (1) Pancreatitis Acute pancreatitis complication: unspecified Chronicity: acute Pancreatitis type: unspecified pancreatitis type Qualified Code(s): K85.90 - Acute pancreatitis without necrosis or infection, unspecified
[2020-09-16] MEDS ORDERED: VITAMIN B COMPLEX PO SCH (09:00)
[2020-09-16] MEDS: BUPRENORPHINE/NALOXONE 8/2 MG TAB SL SCH (09:22)
[2020-09-16] MEDS: carvediloL 6.25 MG TAB PO SCH ×2 (09:22→21:00)
[2020-09-16] MEDS ORDERED: SODIUM PHOSPHATE 3 MMOL/1 ML INFUSION IV STA (09:32)
[2020-09-16] MEDS ORDERED: SODIUM PHOSPHATE 21 MMOL in SODIUM CHLORIDE 0.9% 500 ML IV ONE (10:00)
[2020-09-16] MEDS ORDERED: LACTATED RINGER'S 1,000 ML IV ONE (10:04)
[2020-09-16] MEDS: PANTOprazole 40 MG in SYRINGE 0 ML IV SCH (11:26)
[2020-09-16] MEDS: LACTATED RINGER'S 1,000 ML IV SCH ×4 (11:37→21:03)
--- NOTE | 2020-09-16 14:36 | Hospitalist Progress Note ---
Date of Service September 16, 2020 Assessment & Plan (1) Pancreatitis: Present on admission with severe abdominal pain Lipase on admission elevated MRCP showed intra and extrahepatic biliary ductal dilatation, with mild prominence of the pancreatic duct. This has increased from previous. 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 GI prophylaxis We will give Protonix IV DVT prophylaxis Subcu Lovenox CODE STATUS Full Admission and Anticipated Discharge Date Admission Date: September 15, 2020 Subjective Pt was seen and examined for follow up of abdominal discomfort Lying in bed with no distress Pt said that she feels much better today She said that she is not having any symptoms of alcohol withdrawal Denies any chest pain, palpitation and SOB Review of Systems Review of Systems: All systems reviewed & are unremarkable except as noted in Subjective Physical Exam Physical Exam: General- No acute distress Head- atraumatic Eyes- PERRL, EOMI, ENT- oropharynx clear Neck- supple, no JVD Lungs- clear to auscultation Heart- regular rhythm; no murmur Abdomen- normal bowel sounds, soft, nontender Extremities- no calf tenderness Neuro- alert, oriented x 3; PERRL, EOMI; no facial palsy; no dysarthria Skin- warm & dry Results & Data Results & Data ([facility]) Vital Signs (Past 12 Hours) Vital Signs Temp Pulse Pulse Resp BP BP Pulse Ox 09/16/20 11:12 36.6 C 74 18 116/68 99 09/16/20 07:35 88 09/16/20 06:28 37.1 C 90 18 137/80 94 09/16/20 02:48 36.9 C 98 H 19 110/63 95 (1) Pancreatitis Acute pancreatitis complication: unspecified Chronicity: acute Pancreatitis type: unspecified pancreatitis type Qualified Code(s): K85.90 - Acute pancreatitis without necrosis or infection, unspecified
--- NOTE | 2020-09-16 15:06 | Anesthesiology Consultation ---
Date of Service September 16, 2020 Assessment & Plan Chart Review Chart Review: Acceptable Risk for Surgery and Patient NOT seen in Pre Admission Testing Consults Requested none ASA ASA3 Proposed Anesthesia Anesthesia Type: General History Surgery Operation Date: 09/16/20 07:00 Proposed Procedures p Upper Endoscopic Ultrasonography - Shane Servin MD s Possible Endoscopic Retrograde Cholangiopancreato - Shane Servin MD Height/Weight Height: 5 ft 3.5 in Weight: 64.3 kg Allergies Allergy/AdvReac Type Severity Reaction Status Date / Time ampicillin Allergy Intermediate HIVES Unverified 09/15/20 17:32 Penicillins Allergy Unknown Unknown Verified 09/15/20 17:32 Medications Home Medications Medication Instructions Recorded Confirmed Last Taken buprenorphine-naloxone 1 tab SUBLINGUAL QAM 12/15/19 09/15/20 09/15/20 carvedilol [Coreg] 6.25 mg PO BID 12/15/19 09/15/20 09/14/20 hydroxyzine HCl 5 mg PO BID PRN 12/15/19 09/15/20 09/14/20 ipratropium bromide 2 spray INTRANASAL TID PRN 12/15/19 09/15/20 09/13/20 lisinopril 5 mg PO PM 12/15/19 09/15/20 09/11/20 meloxicam 7.5 mg PO DAILY 09/15/20 09/15/20 09/11/20 vitamin B complex [B Complex] 1 tab PO QAM 09/15/20 09/15/20 09/13/20 Active Medications Generic Name Dose Route Start Last Admin Trade Name Freq PRN Reason Stop Dose Admin Buprenorphine/Naloxone 1 tab 09/16/20 09:00 09/16/20 09:22 Buprenorphine/Naloxone 8/2 Mg Tab SL 10/16/20 08:59 1 tab Q24H SANJUANA Administration Carvedilol 6.25 mg 09/15/20 21:14 09/16/20 09:22 Carvedilol 6.25 Mg Tab PO 10/15/20 21:13 6.25 mg BID SANJUANA Administration Enoxaparin Sodium 40 mg 09/15/20 18:30 09/15/20 19:23 Enoxaparin Inj 40 Mg/0.4 Ml Syr SQ 10/15/20 18:29 40 mg Q24H SANJUANA Administration Pantoprazole Sodium 40 mg/ 10 mls @ 5 mls/min 09/16/20 11:00 09/16/20 11:26 Syringe IV 10/16/20 10:59 5 mls/min DAILY@1100 SANJUANA Administration Lactated Ringer's 1,000 mls @ 250 mls/hr 09/16/20 10:15 09/16/20 11:37 Lr IV 10/16/20 10:14 250 mls/hr .Q4H SANJUANA Administration Lisinopril 5 mg 09/15/20 21:14 09/15/20 21:54 Lisinopril 5 Mg Tab PO 10/15/20 21:13 5 mg PM SANJUANA Administration Past Medical History Medical History (Updated 09/16/20 @ 15:04 by Tyrone Noel MD) Acute pericarditis (Unknown) Alcohol dependence Anemia Major depressive disorder No pertinent family history Solitary kidney Exercise / Class Metabolic Activity II 4-5 Yardwork/Stairs/Walk up hill Past Surgical History Surgical History No pertinent past surgical history Past Anesthesia History No Hx of Anesthesia Complications and No Family Hx of Anesthesia Complications History of PONV No Hx of PONV and No Hx of Motion Sickness Social History Smoking Status: Never smoker Hx Alcohol Use: Yes Alcohol type: beer alcohol intake frequency: a few times a week Alcohol Intake Frequency Comment: pt states drinks 5-6 beers/week Hx Substance Use: Yes substance use type: former substance user Substance Use Type Other:: Quit 1982 Physical Exam Vital Signs Last Vital Signs Temp 36.6 C 09/16/20 11:12 Pulse 84 09/16/20 14:57 Resp 18 09/16/20 11:12 BP 116/68 09/16/20 11:12 Pulse Ox 99 09/16/20 11:12 Testing Laboratory Results 09/16/20 07:33 09/16/20 07:33 Urine Color [place] 09/15/20 16:30 Urine Appearance Clear (Clear) 09/15/20 16:30 Urine pH 6.0 (4.5-7.5) 09/15/20 16:30 Ur Specific [place] 1.032 (1.000-1.030) H 09/15/20 16:30 Urine Protein 2+ (Negative) H 05/04/21 16:30 Urine Glucose (UA) Negative (Negative) 09/15/20 16:30 Urine Ketones 1+ (Negative) H 09/15/20 16:30 Urine Nitrite Positive (Negative) A 09/15/20 16:30 Ur Leukocyte Esterase Trace (Negative) H 09/15/20 16:30 Urine WBC (Auto) 10-30 /hpf (0-5) H 09/15/20 16:30 Urine RBC (Auto) 5-10 /hpf (0-4) H 09/15/20 16:30 U Hyaline Cast (Auto) 5-10 /lpf (0-5) H 09/15/20 16:30 U Epithel Cells (Auto) >30 /lpf (0-5) H 09/15/20 16:30 Urine Bacteria (Auto) Negative (Negative) 09/15/20 16:30 09/15/20 16:30 Urine Culture - Preliminary Urine,Clean Catch Pin-point growth present, reincubating. Electrocardiogram Date: 12/15/19 Findings: + NSR @ (at 84 w/ PAC's) Chest X-Ray Date: 12/15/19 Findings: + NAD
[2020-09-16] MEDS ORDERED: INDOMETHACIN 50 MG SUPP PR ONE (15:10)
--- NOTE | 2020-09-16 15:17 | History & Physical Bridge Note ---
Date of Service September 16, 2020 History & Physical Bridge Note I have examined the patient, reviewed the History & Physical and in the interval since the performance of the History & Physical I have noted the following changes of clinical significance: no changes noted EUS/ERCP today
[2020-09-16] MEDS ORDERED: ePHEDrine sulfate 50 MG/ML AMP IV PRN (15:19)
[2020-09-16] MEDS ORDERED: HYDROmorphone INJ 1 MG/ML SYRINGE IV PRN (15:19)
[2020-09-16] MEDS ORDERED: ONDANSETRON INJ 2 MG/ML 2 ML VIAL IV PRN (15:19)
[2020-09-16] MEDS ORDERED: fentaNYL citrate 100 MCG/2 ML VIAL IV PRN (15:19)
[2020-09-16] MEDS ORDERED: ATROPINE SULFATE 0.1 MG/ML 10ML SYR IV PRN (15:19)
[2020-09-16] MEDS ORDERED: MIDAZOLAM HCL 1 MG/ML 2ML VIAL ONE (15:21)
[2020-09-16] MEDS ORDERED: PROPOFOL IV EMULSION 10 MG/ML 20 ML VIAL IV ONE (15:55)
[2020-09-16] MEDS ORDERED: SUCCINYLCHOLINE 100MG/5ML SYR IV ONE (16:07)
[2020-09-16] MEDS ORDERED: KETAMINE 50 MG/5 ML SYRINGE ONE (16:07)
[2020-09-16] MEDS ORDERED: ONDANSETRON INJ 2 MG/ML 2 ML VIAL ONE (16:07)
[2020-09-16] MEDS ORDERED: ePHEDrine sulfate 50 MG/ML SYR ONE (16:20)
[2020-09-16] MEDS ORDERED: PHENYLEPHRINE 100MCG/ML 5ML SYR ONE (16:20)
--- NOTE | 2020-09-16 16:46 | Operative Report ---
Post Operative Report Pre & Post Diagnosis Operation Date: 09/16/20 07:00 Pre-Op Diagnosis: Acute Pancreatitis Post-Op Diagnosis: Acute Pancreatitis, Dilated Common Bile Duct I identified the patient and participated in the time-out.: Yes Procedure Operation Date: 09/16/20 07:00 Actual Procedures p Upper Endoscopic Ultrasonography(Not Applicable) - Shane Servin MD s Endoscopic Retrograde Cholangiopancreato(Not Applicable) - Shane Servin MD Surgeon Shane Servin MD Field Map Editor None Estimated Blood Loss 0 Findings See Below (Dilated CBD, sludge removed) Specimens None Description of Procedure EUS/ERCP I attest to the content of the Intraoperative Record and any orders documented therein. Any exceptions are noted below.
--- NOTE | 2020-09-16 17:10 | GI REPORT ---
Patient Name: Madonna Rucker Procedure Date: 09/16/2020 3:46 PM Date of : 1960 Admit Type: Inpatient Age: 59 Gender: Female Attending MD: Shane Servin MD Procedure: Upper GI endoscopy Providers: Shane Servin MD Referring MD: ALANNA Adams Indications: Abnormal CT of the GI tract Medicines: General Anesthesia Complications: No immediate complications. Estimated Blood Loss: Estimated blood loss: none. Procedure: Pre-Anesthesia Assessment: - Prior to the procedure, a History and Physical was performed, and patient medications, allergies and sensitivities were reviewed. The patient's tolerance of previous anesthesia was reviewed. - The risks and benefits of the procedure and the sedation options and risks were discussed with the patient. All questions were answered and informed consent was obtained. - Patient identification and proposed procedure were verified prior to the procedure by the physician and the nurse. The procedure was verified in the procedure room. - Pre-procedure physical examination revealed no contraindications to sedation. After obtaining informed consent, the endoscope was passed under direct vision. Throughout the procedure, the patient's blood pressure, pulse, and oxygen saturations were monitored continuously. The Endoscope was introduced through the mouth, and advanced to the second part of duodenum. The upper GI endoscopy was accomplished without difficulty. The patient tolerated the procedure well. Findings: The examined esophagus was normal. The entire examined stomach was normal. The duodenal bulb and second portion of the duodenum were normal. Impression: - Normal esophagus. - Normal stomach. - Normal duodenal bulb and second portion of the duodenum. - No specimens collected. Recommendation: - Perform an upper endoscopic ultrasound (UEUS) today. Shane Servin MD 09/16/2020 5:09:53 PM This report has been signed electronically. Note Initiated On: 09/16/2020 3:46 PM Number of Addenda: 0 I attest to the content of the Intraoperative Record and orders documented therein, exceptions below {[id number]}
--- NOTE | 2020-09-16 17:20 | Fluoroscopy Report ---
[place] ERCP biliary ductal HISTORY: 59 years-old Female ERCP dilated common bile duct COMPARISON: MRCP 09/15/2020, CT abdomen and pelvis 12/15/2019 TECHNIQUE: 10 spot fluoroscopic images of the abdomen were obtained utilizing 30.8 seconds fluoroscop y time FINDINGS: Endoscope noted within the duodenum. Cannulation of the common bile duct with retrograde injection of contrast. Intrahepatic and extrahepatic biliary ductal dilation redemonstrated. Subsequent images de monstrate balloon sweep of the common bile duct. Contrast extends into the cystic duct, gallbladder a nd duodenum. No extravasation. No biliary strictures or filling defects identified. IMPRESSION: Fluoroscopic assistance as above. Please see procedural report for further details. ACT 112: Negative or not required by law. The above report was generated using voice recognition software. It may contain grammatical, syntax o r spelling errors. Electronically signed by: Khanh Baca M.D. 09/16/2020 5:19 PM
--- NOTE | 2020-09-16 17:24 | GI REPORT ---
Patient Name: Madonna Rucker Procedure Date: 09/16/2020 3:48 PM Date of : 1960 Admit Type: Inpatient Age: 59 Gender: Female Attending MD: Shane Servin MD Procedure: Upper EUS Providers: Shane Servin MD Referring MD: ALANNA Adams Indications: Common bile duct dilation (acquired) seen on MRCP, Dilated pancreatic duct on MRCP Medicines: General Anesthesia Complications: No immediate complications. Estimated Blood Loss: Estimated blood loss: none. Procedure: Pre-Anesthesia Assessment: - Prior to the procedure, a History and Physical was performed, and patient medications, allergies and sensitivities were reviewed. The patient's tolerance of previous anesthesia was reviewed. - The risks and benefits of the procedure and the sedation options and risks were discussed with the patient. All questions were answered and informed consent was obtained. - Patient identification and proposed procedure were verified prior to the procedure by the physician and the nurse. The procedure was verified in the procedure room. - Pre-procedure physical examination revealed no contraindications to sedation. After obtaining informed consent, the endoscope was passed under direct vision. Throughout the procedure, the patient's blood pressure, pulse, and oxygen saturations were monitored continuously. The scope was introduced through the mouth, and advanced to the second part of duodenum. The upper EUS was accomplished without difficulty. The patient tolerated the procedure well. Findings: ENDOSONOGRAPHIC FINDING: : There was no sign of significant endosonographic abnormality in the ampulla. No masses were identified. There was dilation in the common bile duct which measured up to 14 mm. Hyperechoic material consistent with sludge was visualized endosonographically in the common bile duct. There was no sign of significant endosonographic abnormality in the gallbladder. No stones and no biliary sludge were identified. A 4 mm hyperechoic polyp was identified endosonographically in the gallbladder. There was abnormal echogenicity in the visualized portion of the liver. This area was hyperechoic. Pancreatic parenchymal abnormalities were noted in the entire pancreas. These consisted of hyperechoic strands, hyperechoic foci and lobularity with honeycombing. Pancreas divisum was visualized. PD measured 2 mm in maximum diameter. There was no sign of significant endosonographic abnormality involving the celiac trunk. Impression: - There was no sign of significant pathology in the ampulla. - There was dilation in the common bile duct which measured up to 14 mm. Sludge was visualized endosonographically in the duct. - A 4 mm polyp was found in the gallbladder. No stones. - There was abnormal echogenicity in the visualized portion of the liver consistent with fatty infiltration. - Pancreatic parenchymal abnormalities consisting of hyperechoic strands, hyperechoic foci and lobularity with honeycombing were noted in the entire pancreas, likely related to early chronic pancreatitis. - Pancreas divisum was visualized. Nondilated PD. - The celiac trunk was endosonographically normal. Recommendation: - Perform an ERCP today. Shane Servin MD 09/16/2020 5:23:57 PM This report has been signed electronically. Note Initiated On: 09/16/2020 3:48 PM Number of Addenda: 0 I attest to the content of the Intraoperative Record and orders documented therein, exceptions below {[id number]}
--- NOTE | 2020-09-16 17:34 | GI REPORT ---
Patient Name: Madonna Rucker Procedure Date: 09/16/2020 3:49 PM Date of : 1960 Admit Type: Inpatient Age: 59 Gender: Female Attending MD: Shane Servin MD Procedure: ERCP Providers: Shane Servin MD Referring MD: ALANNA Adams Indications: Abnormal MRCP, Biliary sludge Medicines: General Anesthesia Complications: No immediate complications. Estimated Blood Loss: Estimated blood loss: none. Procedure: Pre-Anesthesia Assessment: - Prior to the procedure, a History and Physical was performed, and patient medications, allergies and sensitivities were reviewed. The patient's tolerance of previous anesthesia was reviewed. - The risks and benefits of the procedure and the sedation options and risks were discussed with the patient. All questions were answered and informed consent was obtained. - Patient identification and proposed procedure were verified prior to the procedure by the physician and the nurse. The procedure was verified in the procedure room. - Pre-procedure physical examination revealed no contraindications to sedation. After obtaining informed consent, the scope was passed under direct vision. Throughout the procedure, the patient's blood pressure, pulse, and oxygen saturations were monitored continuously. The Scope was introduced through the mouth, and advanced to the duodenum and used to inject contrast into the bile duct. The ERCP was accomplished without difficulty. The patient tolerated the procedure well. Findings: The radio equipment installer film was normal. The esophagus was successfully intubated under direct vision. The scope was advanced to a normal major papilla in the descending duodenum without detailed examination of the pharynx, larynx and associated structures, and upper GI tract. The upper GI tract was grossly normal. A 0.035 inch straight standard wire was passed into the biliary tree. The Fusion OMNI sphincterotome was passed over the guidewire and the bile duct was then deeply cannulated. Contrast was injected. I personally interpreted the bile duct images. Ductal flow of contrast was adequate. Image quality was adequate. Contrast extended to the main bile duct. The main bile duct was markedly dilated and diffusely dilated. The largest diameter was 15 mm. Biliary sphincterotomy was made with a monofilament traction (standard) sphincterotome using ERBE electrocautery. There was no post-sphincterotomy bleeding. The biliary tree was swept with a 15 mm balloon starting at the bifurcation. Sludge was swept from the duct. Impression: - DIlated CBD, likely realted to chronic pancreatitis/ SOD related to opioid effect. - A biliary sphincterotomy was performed in view of sludge. - The biliary tree was swept and sludge was found. Recommendation: - Return patient to [facility] for [facility] care. - Avoid aspirin and nonsteroidal anti-inflammatory medicines for 5 days. - If patient develops symptoms of chronic pancreatitis in the furture and PD becomes dilated then would consider minor papillotomy. - Alcohol cessation. - Consider repeat Pancreas imaging in 3 - 6 months. - Ultrasound abdomen in 12 months for follow up on the GB polyp. - Recall GI if needed. Shane Servin MD 09/16/2020 5:33:55 PM This report has been signed electronically. Note Initiated On: 09/16/2020 3:49 PM Number of Addenda: 0 I attest to the content of the Intraoperative Record and orders documented therein, exceptions below {[id number]}
--- NOTE | 2020-09-16 17:43 | Anesthesiology Progress Note ---
Date of Service September 16, 2020 Anesthesia Post Procedure Vital Signs Vital Signs: Temp Pulse Pulse Pulse Resp BP BP 09/16/20 17:30 83 16 09/16/20 17:20 86 18 09/16/20 17:10 85 20 09/16/20 17:00 36.2 C L 102 H 20 09/16/20 15:09 37.3 C 89 18 09/16/20 14:57 84 09/16/20 11:12 36.6 C 74 18 09/16/20 07:35 88 09/16/20 06:28 37.1 C 90 18 137/80 09/16/20 02:48 36.9 C 98 H 19 110/63 09/15/20 23:50 120 H 09/15/20 23:49 96 H 09/15/20 23:17 36.6 C 73 19 126/79 09/15/20 22:11 36.7 C 102 H 16 153/84 H 09/15/20 19:30 97 H 17 140/88 09/15/20 19:26 98 H 22 162/100 H 09/15/20 19:01 19 09/15/20 18:30 100 H 17 BP Pulse Ox 09/16/20 17:30 161/84 H 100 09/16/20 17:20 156/84 H 100 09/16/20 17:10 158/86 H 100 09/16/20 17:00 160/87 H 100 09/16/20 15:09 150/85 H 97 09/16/20 14:57 09/16/20 11:12 116/68 99 09/16/20 07:35 09/16/20 06:28 94 09/16/20 02:48 95 09/15/20 23:50 09/15/20 23:49 09/15/20 23:17 100 09/15/20 22:11 97 09/15/20 19:30 92 09/15/20 19:26 95 09/15/20 19:01 09/15/20 18:30 Pain Intensity Bilateral Abdomen: Pain Intensity: 0 Transfer of Care Handoff Completed per policy Notes Mental Status: alert / awake / arousable Patient Amnestic to Procedure: Yes Nausea / Vomiting: adequately controlled Pain: adequately controlled Airway Patency, RR, SpO2: stable & adequate BP & HR: stable & adequate Hydration State: stable & adequate Anesthetic Complications: no major complications apparent
[2020-09-16] MEDS: ENOXAPARIN INJ 40 MG/0.4 ML SYR SQ SCH (18:27)
[2020-09-16] MEDS: lisinopril 5 MG TAB PO SCH (21:01)
[2020-09-17] MEDS: LACTATED RINGER'S 1,000 ML IV SCH ×3 (01:05→08:30)
[2020-09-17] MEDS: carvediloL 6.25 MG TAB PO SCH (08:30)
[2020-09-17] MEDS: BUPRENORPHINE/NALOXONE 8/2 MG TAB SL SCH (08:30)
--- NOTE | 2020-09-17 09:53 | Gastroenterology Progress Note ---
Date of Service September 17, 2020 Assessment & Plan (1) Pancreatitis: Acute pancreatitis likely from alcohol, though bile duct sludge and SOD may have been contributory. Will advance diet. No GI contraindication to discharge. Will arrange OP GI f/u to arrange f/u imaging of the pancreas and address fatty liver diseaes. Discussed alcohol abstention. Pt is motivated and believes she will be able to abstain. GI will sign off. Present on Admission?: Yes (2) History of alcohol dependence: Admission and Anticipated Discharge Date Admission Date: September 15, 2020 Supervising Physician Co-Signing Physician Notes Attg add: I interviewed and examined pt, reviewed chart and labs. Pt feels well, and is vaughn liquids without difficulty. No labs checked except for lipase, which has fallen. OK for d/c home. Alcohol, MJ cessation discussed. D/w Dr. Servin - no need referral for mykel. Subjective Admitted with acute pancreatitis. Post procedure Day #1 from ERCP for SOD (likely secondary to suboxone) and sweeping of sludge from the bile duct. EUS with pancreatic divisum, sludge in CBD, early chronic pancreatitis, fatty liver. Review of Systems Review of Systems: ROS: Gen: Denies weakness, fevers, weight loss Eyes: No yellow or eye redness, or pain, no recent vision changes Resp: No SOB, no cough Cardio: no CP, SOB or palpitation (though did have fast heart beat on day of admission) GI: See HPI : Denies pain on urination Skin: No jaundice, itching or new rashes Physical Exam Constitutional: WD/WN, vitals as above Eyes: PERRL, conjunctivae normal, anicteric sclerae ENMT: external ear and nose normal, oropharynx normal Neck: trachea midline, no thyromegaly Respiratory: normal respiratory effort, lungs clear to auscultation Cardiovascular: RRR, no murmur, no edema Gastrointestinal (Abdomen): Inspection/Auscultation: abdomen normal to inspection; abdomen not distended Percussion/Palpation: + abdomen tender (mid an upper abd tenderness) and abdomen soft; no hepatosplenomegaly and no splenomegaly Musculoskeletal: no cyanosis or clubbing, extremities motor strength 5/5 Skin: no rashes, warm and dry Neurologic: PERRL, EOMI, accommodation nl, no face palsy, no dysarthria Psychiatric: A+Ox3, euthymic affect Lymphatic: no cervical or axillary lymphadenopathy Results & Data ([facility]) Vital Signs (Past 12 Hours) Vital Signs Temp Pulse Pulse Resp BP BP Pulse Ox 09/17/20 08:00 37 C 95 H 18 138/69 93 09/17/20 07:42 74 09/17/20 04:47 37.3 C 89 18 160/84 H 91 09/17/20 00:15 78 09/17/20 00:03 37.2 C 92 H 20 152/75 H 92 Diagnostic Findings EUS 09/16/20: - There was no sign of significant pathology in the ampulla. - There was dilation in the common bile duct which measured up to 14 mm. Sludge was visualized endosonographically in the duct. - A 4 mm polyp was found in the gallbladder. No stones. - There was abnormal echogenicity in the visualized portion of the liver consistent with fatty infiltration. - Pancreatic parenchymal abnormalities consisting of hyperechoic strands, hyperechoic foci and lobularity with honeycombing were noted in the entire pancreas, likely related to early chronic pancreatitis. - Pancreas divisum was visualized. Nondilated PD. - The celiac trunk was endosonographically normal. ERCP 09/16/20: - Dilated CBD, likely realted to chronic pancreatitis/ SOD related to opioid effect. - A biliary sphincterotomy was performed in view of sludge. - The biliary tree was swept and sludge was found. Recommendation: - Return patient to [facility] for ongoing care. - Avoid aspirin and nonsteroidal anti-inflammatory medicines for 5 days. - If patient develops symptoms of chronic pancreatitis in the future and PD becomes dilated then would consider minor papillotomy. - Alcohol cessation. - Consider repeat Pancreas imaging in 3 - 6 months. - Ultrasound abdomen in 12 months for follow up on the GB polyp. (1) Pancreatitis Acute pancreatitis complication: unspecified Chronicity: acute Pancreatitis type: unspecified pancreatitis type Qualified Code(s): K85.90 - Acute pancreatitis without necrosis or infection, unspecified
[2020-09-17] MEDS: PANTOprazole 40 MG in SYRINGE 0 ML IV SCH (12:34)
--- NOTE | 2020-09-17 15:05 | Hospitalist Progress Note ---
Date of Service September 17, 2020 Assessment & Plan (1) Pancreatitis: Present on admission with severe abdominal pain Lipase on admission elevated MRCP showed intra and extrahepatic biliary ductal dilatation, with mild prominence of the pancreatic duct. This has increased from previous. is no de finite evidence of choledocholithiasis S/P ERCP on 09/16 showed dilated CBD, likely related to chronic pancreatitis/SOD related to opioid effect. A biliary sphincterotomy was performed in view of sludge. The biliary tree was swept and sludge was found. EUS on 09/16 showed dilation in the common bile duct which measured up to 14 mm. Sludge was visualized endosonographically in the duct. A 4 mm polyp was found in the gallbladder. No stones. There was abnormal echogenicity in the visualized portion of the liver consistent with fatty infiltration. GI recommended to avoid NSAID for the next 5 days Will need OP GI f/u to arrange f/u imaging of the pancreas andto address fatty liver disease. 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[place] left kidney GI prophylaxis We will give Protonix IV DVT prophylaxis Subcu Lovenox CODE STATUS Full Admission and Anticipated Discharge Date Admission Date: September 15, 2020 Subjective Pt was seen and examined for follow up of abdominal discomfort Lying in bed with no distress Pt said that she feels She tolerated her diet She said that she is not having any symptoms of alcohol withdrawal She is very anxious to go home Denies any chest pain, palpitation and SOB Review of Systems Review of Systems: All systems reviewed & are unremarkable except as noted in Subjective Physical Exam Physical Exam: General- No acute distress Head- atraumatic Eyes- PERRL, EOMI, ENT- oropharynx clear Neck- supple, no JVD Lungs- clear to auscultation Heart- regular rhythm; no murmur Abdomen- normal bowel sounds, soft, nontender Extremities- no calf tenderness Neuro- alert, oriented x 3; PERRL, EOMI; no facial palsy; no dysarthria Skin- warm & dry Results & Data Results & Data ([facility]) Vital Signs (Past 12 Hours) Vital Signs Temp Pulse Pulse Pulse Resp BP BP 09/17/20 12:56 36.9 C 86 75 18 145/68 H 152/75 H 09/17/20 11:20 36.9 C 75 18 145/68 H 09/17/20 08:00 37 C 95 H 18 138/69 09/17/20 07:42 74 09/17/20 04:47 37.3 C 89 18 160/84 H Pulse Ox 09/17/20 12:56 97 09/17/20 11:20 97 09/17/20 08:00 93 09/17/20 07:42 09/17/20 04:47 91 (1) Pancreatitis Acute pancreatitis complication: unspecified Chronicity: acute Pancreatitis type: unspecified pancreatitis type Qualified Code(s): K85.90 - Acute pancreatitis without necrosis or infection, unspecified
--- NOTE | 2020-09-20 08:07 | Discharge Summary ---
Date of Service September 17, 2020 Admission HPI Per Admitting Provider She is a 59-year-old female with significant past medical history including major depressive disorder, uncomplicated alcohol dependence, history of nonischemic cardiomyopathy, solitary kidney on the right side and hypertension has been complaining of acute abdominal pain that started on Monday last. The pain was in the mid abdomen and that are associated with nausea and she has had vomiting couple of times since then. Denies any fever and/or chills. For the last 2 days she could not take anything much due to nausea and vomiting. Denies any alcohol intake. She has had an ultrasound done as an outpatient through her PCP which showed abnormalities as mentioned below and she was sent in to the ER for further evaluation' She was noted to be tachycardic in the emergency room, afebrile with abdominal pain and her lipase was noted to be high at 3320. She was admitted to [facility] telemetry unit for continuation of care Admission Exam Per Admitting Provider Physical Exam: Lying in bed very anxious with minimal pain in the abdomen Constitutional: well developed, well nourished and + ill appearing Eyes: PERRL, conjunctivae normal, anicteric sclerae ENMT: external ear and nose normal, oropharynx normal Neck: trachea midline, no thyromegaly Respiratory: no respiratory distress Auscultation: lungs clear to auscultation bilaterally Cardiovascular: regular rate and regular rhythm Heart Sounds: no murmur Gastrointestinal: Inspection/Auscultation: normal bowel sounds; abdomen not distended Percussion/Palpation: + abdomen tender (Minimally tender in the epigastrium) and abdomen soft Musculoskeletal: No acute arthritis in any joint Neurologic: Alert, awake and oriented x3. No focal sensory and motor deficit appreciated Psychiatric: A+Ox3, euthymic affect Lymphatic: no cervical or axillary lymphadenopathy Principal Diagnosis Pancreatitis Major depressive disorder: Hypertension: History of alcohol dependence: Solitary kidney: Discharge Exam General- No acute distress Head- atraumatic Eyes- PERRL, EOMI, ENT- oropharynx clear Neck- supple, no JVD Lungs- clear to auscultation Heart- regular rhythm; no murmur Abdomen- normal bowel sounds, soft, nontender Extremities- no calf tenderness Neuro- alert, oriented x 3; PERRL, EOMI; no facial palsy; no dysarthria Skin- warm & dry Discharge Data Allergies Allergy/AdvReac Type Severity Reaction Status Date / Time ampicillin Allergy Intermediate HIVES Unverified 09/15/20 17:32 Penicillins Allergy Unknown Unknown Verified 09/15/20 17:32 Consultations 09/15/20 17:14 ED Decision to Admit Stat 09/15/20 18:46 Consult Gastroenterology Routine Procedures Performed Operation Date: 09/16/20 07:00 Actual Procedures p Upper Endoscopic Ultrasonography(Not Applicable) - Shane Servin MD s Endoscopic Retrograde Cholangiopancreato(Not Applicable) - Shane Servin MD Ordered Studies 09/15/20 18:28 MR MRCP Routine 09/15/20 22:02 CT head/brain wo con Urgent 09/16/20 13:11 FL ERCP biliary ductal Routine 09/16/20 15:43 US upper EUS PACS images Routine DICTATED BY: Shane Servin MD Patient Name: Madonna Rucker Procedure Date: 09/16/2020 3:48 PM Date of : 1960 Admit Type: Inpatient Age: 59 Gender: Female Attending MD: Shane Servin MD Procedure: Upper EUS Providers: Shane Servin MD Referring MD: ALANNA Adams Indications: Common bile duct dilation (acquired) seen on MRCP, Dilated pancreatic duct on MRCP Medicines: General Anesthesia Complications: No immediate complications. Estimated Blood Loss: Estimated blood loss: none. Procedure: Pre-Anesthesia Assessment: - Prior to the procedure, a History and Physical was performed, and patient medications, allergies and sensitivities were reviewed. The patient's tolerance of previous anesthesia was reviewed. - The risks and benefits of the procedure and the sedation options and risks were discussed with the patient. All questions were answered and informed consent was obtained. - Patient identification and proposed procedure were verified prior to the procedure by the physician and the nurse. The procedure was verified in the procedure room. - Pre-procedure physical examination revealed no contraindications to sedation. After obtaining informed consent, the endoscope was passed under direct vision. Throughout the procedure, the patient's blood pressure, pulse, and oxygen saturations were monitored continuously. The scope was introduced through the mouth, and advanced to the second part of duodenum. The upper EUS was accomplished without difficulty. The patient tolerated the procedure well. Findings: ENDOSONOGRAPHIC FINDING: : There was no sign of significant endosonographic abnormality in the ampulla. No masses were identified. There was dilation in the common bile duct which measured up to 14 mm. Hyperechoic material consistent with sludge was visualized endosonographically in the common bile duct. There was no sign of significant endosonographic abnormality in the gallbladder. No stones and no biliary sludge were identified. A 4 mm hyperechoic polyp was identified endosonographically in the gallbladder. There was abnormal echogenicity in the visualized portion of the liver. This area was hyperechoic. Pancreatic parenchymal abnormalities were noted in the entire pancreas. These consisted of hyperechoic strands, hyperechoic foci and lobularity with honeycombing. Pancreas divisum was visualized. PD measured 2 mm in maximum diameter. There was no sign of significant endosonographic abnormality involving the celiac trunk. Impression: - There was no sign of significant pathology in the ampulla. - There was dilation in the common bile duct which measured up to 14 mm. Sludge was visualized endosonographically in the duct. - A 4 mm polyp was found in the gallbladder. No stones. - There was abnormal echogenicity in the visualized portion of the liver consistent with fatty infiltration. - Pancreatic parenchymal abnormalities consisting of hyperechoic strands, hyperechoic foci and lobularity with honeycombing were noted in the entire pancreas, likely related to early chronic pancreatitis. - Pancreas divisum was visualized. Nondilated PD. - The celiac trunk was endosonographically normal. Recommendation: - Perform an ERCP today. Shane Servin MD 09/16/2020 5:23:57 PM This report has been signed electronically. Note Initiated On: 09/16/2020 3:48 PM Number of Addenda: 0 I attest to the content of the Intraoperative Record and orders documented therein, exceptions below {[id number]} Signed By:{f rep sign date/time1]Created/Dictated: 09/16/20 1548Transcribed: 09/16/204 DICTATED BY: Shane Servin MD Patient Name: Madonna Rucker Procedure Date: 09/16/2020 3:49 PM Date of : 1960 Admit Type: Inpatient Age: 59 Gender: Female Attending MD: Shane Servin MD Procedure: ERCP Providers: Shane Servin MD Referring MD: ALANNA Adams Indications: Abnormal MRCP, Biliary sludge Medicines: General Anesthesia Complications: No immediate complications. Estimated Blood Loss: Estimated blood loss: none. Procedure: Pre-Anesthesia Assessment: - Prior to the procedure, a History and Physical was performed, and patient medications, allergies and sensitivities were reviewed. The patient's tolerance of previous anesthesia was reviewed. - The risks and benefits of the procedure and the sedation options and risks were discussed with the patient. All questions were answered and informed consent was obtained. - Patient identification and proposed procedure were verified prior to the procedure by the physician and the nurse. The procedure was verified in the procedure room. - Pre-procedure physical examination revealed no contraindications to sedation. After obtaining informed consent, the scope was passed under direct vision. Throughout the procedure, the patient's blood pressure, pulse, and oxygen saturations were monitored continuously. The Scope was introduced through the mouth, and advanced to the duodenum and used to inject contrast into the bile duct. The ERCP was accomplished without difficulty. The patient tolerated the procedure well. Findings: The assembler tester film was normal. The esophagus was successfully intubated under direct vision. The scope was advanced to a normal major papilla in the descending duodenum without detailed examination of the pharynx, larynx and associated structures, and upper GI tract. The upper GI tract was grossly normal. A 0.035 inch straight standard wire was passed into the biliary tree. The Fusion OMNI sphincterotome was passed over the guidewire and the bile duct was then deeply cannulated. Contrast was injected. I personally interpreted the bile duct images. Ductal flow of contrast was adequate. Image quality was adequate. Contrast extended to the main bile duct. The main bile duct was markedly dilated and diffusely dilated. The largest diameter was 15 mm. Biliary sphincterotomy was made with a monofilament traction (standard) sphincterotome using ERBE electrocautery. There was no post-sphincterotomy bleeding. The biliary tree was swept with a 15 mm balloon starting at the bifurcation. Sludge was swept from the duct. Impression: - DIlated CBD, likely realted to chronic pancreatitis/ SOD related to opioid effect. - A biliary sphincterotomy was performed in view of sludge. - The biliary tree was swept and sludge was found. Recommendation: - [facility]. - Avoid aspirin and nonsteroidal anti-inflammatory medicines for 5 days. - If patient develops symptoms of chronic pancreatitis in the furture and PD becomes dilated then would consider minor papillotomy. - Alcohol cessation. - Consider repeat Pancreas imaging in 3 - 6 months. - Ultrasound abdomen in 12 months for follow up on the GB polyp. - Recall GI if needed. Shane Servin MD 09/16/2020 5:33:55 PM This report has been signed electronically. Note Initiated On: 09/16/2020 3:49 PM Number of Addenda: 0 I attest to the content of the Intraoperative Record and orders documented therein, exceptions below {[id number]} Signed By:{sejal rep sign date/time1]Created/Dictated: 09/16/20 1549Transcribed: 1734Transcriptionist: GABRIELA MANZANARES ERCP biliary ductal HISTORY: 59 years-old Female ERCP dilated common bile duct COMPARISON: MRCP 09/15/2020, CT abdomen and pelvis 12/15/2019 TECHNIQUE: 10 spot fluoroscopic images of the abdomen were obtained utilizing 30.8 seconds fluoroscopy time FINDINGS: Endoscope noted within the duodenum. Cannulation of the common bile duct with retrograde injection of contrast. Intrahepatic and extrahepatic biliary ductal dilation redemonstrated. Subsequent images demonstrate balloon sweep of the common bile duct. Contrast extends into the cystic duct, gallbladder and duodenum. No extravasation. No biliary strictures or filling defects identified. IMPRESSION: Fluoroscopic assistance as above. Please see procedural report for further details. ACT 112: Negative or not required by law. The above report was generated using voice recognition software. It may contain grammatical, syntax or spelling errors. Electronically signed by: Khanh Baca M.D. 09/16/2020 5:19 PM Dictated: 09/16/20 1716Transcribed: 09/16/[address] OF THE HEAD WITHOUT CONTRAST CLINICAL HISTORY: blurred vision COMPARISON STUDY: No previous studies for comparison. CT DOSE: 729.78 mGycm TECHNIQUE: Helical axial images of the head were obtained without IV contrast. Automated exposure control was utilized for the study. A dose lowering technique was utilized adhering to the principles of ALARA. FINDINGS: No acute intracranial hemorrhage, midline shift or mass effect is present. The ventricular system is unremarkable. The basal cisterns are patent. No extra-axial collections are present. There are no findings to suggest acute dural sinus thrombosis or acute territorial infarct. No significant calvarial abnormalities are present. Visualized portions of the sinuses and mastoid air cells are clear. Incidental note is made of a defect within the nasal septum. IMPRESSION: No acute intracranial findings. ACT 112: Negative or not required by law. Electronically signed by: William Hawk M.D. 09/16/2020 6:46 AM Dictated: 09/16/2044Transcribed: 09/16/2046 MRCP CLINICAL HISTORY: Dilated common bile duct and dilated pancreatic duct. COMPARISON STUDY: Abdominal CT dated 12/15/2019. TECHNIQUE: Abdominal MRCP is performed utilizing various T2-weighted sequences in the axial and coronal planes. IV contrast was not administered for this examination. 3-D reformats are created and assessed. FINDINGS: There is marked dilatation of the common bile duct which measures up to 1.7 cm in diameter. There is mild to moderate intrahepatic biliary ductal dilatation. These findings have increased from the 12/15/2019 CT scan. There is no definite evidence of choledocholithiasis. There is only mild prominence of the pancreatic duct which measures up to 4 mm diameter. Pancreas divisum is noted. The gallbladder is normal as imaged with no gallstones clearly identified. The unenhanced liver, spleen, adrenal glands, and right kidney are grossly normal. The left kidney is not identified and presumed surgically absent. Trace perisplenic ascites is noted. No bowel obstruction is identified. The pancreas is grossly unremarkable but not well evaluated. No destructive bony lesion is seen. No upper abdominal lymphadenopathy is identified. IMPRESSION: 1. There is intra and extrahepatic biliary ductal dilatation, with mild prominence of the pancreatic duct. This has increased from previous. 2. There is no definite evidence of choledocholithiasis. Etiologies such as biliary stricture or less likely obstructing mass lesion are differential considerations. Correlation with ERCP is recommended. 3. No mass lesion is clearly identified. This is not well assessed on this examination. ACT 112: Positive. There are findings on this exam that require communication between the performing entity and the patient following Patient Test Result Information Act ([place] Act 112) guidelines. Dictated: 09/16/2020 7:35 AM Transcribed: 09/16/2020 7:52 AM Marixa [id number] Electronically signed by: Rizwan Hadley M.D. 09/16/2020 8:51 AM Dictated: 09/16/20 0735Transcribed: 09/16/20 0752 XR abdomen 2V w PA chest CLINICAL HISTORY: epigastric pain COMPARISON STUDY: 01/02/2020 FINDINGS: Erect chest reveals no free air. There is no focal pulmonary consolidation. Erect and supine views the abdomen reveal mild gaseous prominence the colon. There are no transition zones to indicate bowel obstruction. IMPRESSION: No evidence of bowel obstruction. No evidence of free air. ACT 112: Negative or not required by law. Electronically signed by: Deshawn Charles M.D. 09/15/2020 8:19 PM Dictated: 09/15/202017Transcribed: 09/15/202017 Hospital Course (1) Pancreatitis: Present on admission with severe abdominal pain Lipase on admission elevated MRCP showed intra and extrahepatic biliary ductal dilatation, with mild prominence of the pancreatic duct. This has increased from previous. is no definite evidence of choledocholithiasis S/P ERCP on 09/16 showed dilated CBD, likely related to chronic pancreatitis/SOD related to opioid effect. A biliary sphincterotomy was performed in view of sludge. The biliary tree was swept and sludge was found. EUS on 09/16 showed dilation in the common bile duct which measured up to 14 mm. Sludge was visualized endosonographically in the duct. A 4 mm polyp was found in the gallbladder. No stones. There was abnormal echogenicity in the visualized portion of the liver consistent with fatty infiltration. GI recommended to avoid NSAID for the next 5 days Will need OP GI f/u to arrange f/u imaging of the pancreas andto address fatty liver disease. 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 GI prophylaxis We will give Protonix IV DVT prophylaxis Subcu Lovenox CODE STATUS Full Total Time Total Time Spent Total Time Spent (In Minutes): 35 minutes Total Time Includes: Examination of the Patient, Discharge Planning, Medication Reconciliation, Communication With Other Providers and Other Discharge Plan Discharge Items Patient Disposition: Home - Self-Care Reason For Visit: ACUTE PANCREATITIS Discharge Diagnosis: Pancreatitis Major depressive disorder: Hypertension: History of alcohol dependence: Solitary kidney: Activity: Resume your previous activity Non-emergency contact: Primary Care Provider and [employer] Call non-emergency contact if: you have any medication questions and your symptoms worsen Follow-up/Referrals: Angeles Hamilton CRNP [Nurse Practitioner] - (Date & Time 09/30/2020 12:00 PM Provider ERIN Vasques Department Gastroenterology, [facility] ) Piedad Chris MD [Primary Care Provider] - (Date & Time 09/21/2020 11:00 AM Provider Piedad Chris MD Department General Internal Medicine [facility] ) Diet: Heart Healthy Addtl Attending Provider Instructions: Follow up with your primary care provider Dr. Chris on 09/21/2020 at 11:00 AM at the General Internal Medicine [facility] Follow up with your gastroenterology Angeles KHAN on 09/30/2020 12:00 PM at the Gastroenterology, [facility] Counseling on alcohol cessation Pending Studies at Discharge: No Stand-Alone Forms: My [facility] SPHARES, Smoking Cessation Medications and DC Order Prescriptions: New folic acid 1 mg tablet 1 mg PO DAILY Qty: 30 RF: 0 thiamine HCl (vitamin B1) 100 mg tablet 100 mg PO DAILY Qty: 30 RF: 0 Continued carvedilol [Coreg] 6.25 mg tablet 6.25 mg PO BID RF: 0 lisinopril 5 mg tablet 5 mg PO PM RF: 0 hydroxyzine HCl 10 mg tablet 5 mg PO BID PRN (Reason: Anxiety) RF: 0 ipratropium bromide 0.03 % spray,non-aerosol 2 spray INTRANASAL TID PRN (Reason: Nasal Congestion) RF: 0 buprenorphine-naloxone 8-2 mg tablet, sublingual 1 tab SUBLINGUAL QAM RF: 0 vitamin B complex Tablet Extended Release 1 tab PO QAM RF: 0 meloxicam 7.5 mg tablet 7.5 mg PO DAILY RF: 0 Discharge Orders: Discharge Order (Routine); Ordered 09/17/20 Ordered By: Scarlet Hassan Admission Data Admit Date/Time: 09/15/20 18:24 Attending Provider: Scarlet Hassan Admit Provider: Alfredo Alex Primary Care Provider: Piedad Chris Other Providers: Alfredo Alex ; Caroline Granger Other Interventions: Discharge Summary Assessment (RN) Last Done: 09/17/20 12:56
== END 2020-09-17 15:40 | disposition home or self-care (01) | DRG 439 ==
LOC: ED 15:24 → SUATTDRO 18:24 → 2W 18:24
DX: Z88.0 Allergy status to penicillin; F10.20 Alcohol dependence, uncomplicated; F32.9 Major depressive disorder, single episode, unspecified; I42.9 Cardiomyopathy, unspecified; I10 Essential (primary) hypertension; T40.2X5A Adverse effect of other opioids, initial encounter; K83.8 Other specified diseases of biliary tract; Z88.1 Allergy status to other antibiotic agents; K86.0 Alcohol-induced chronic pancreatitis; K80.50 Calculus of bile duct without cholangitis or cholecystitis without obstruction; K85.20 Alcohol induced acute pancreatitis without necrosis or infection; Q60.0 Renal agenesis, unilateral

== ENCOUNTER 2022-10-15 14:43 | Inpatient (IN) ==
[2022-10-15] MEDS ORDERED: SODIUM CHLORIDE 0.9% 1000ML 1,000 ML IV STA (14:53)
[2022-10-15] MEDS ORDERED: HYDROmorphone INJ 0.5 MG/0.5 ML SYR IV STA ×3 (15:02→18:39)
[2022-10-15] MEDS ORDERED: ONDANSETRON INJ 2 MG/ML 2 ML VIAL IV STA (15:02)
--- NOTE | 2022-10-15 15:15 | XRay Report ---
XR chest 1V portable HISTORY: 61 years-old Female abd pain acute chest and abdominal pain COMPARISON: 09/15/2020 TECHNIQUE: AP view of the chest FINDINGS: Cardiomediastinal and hilar silhouettes are within normal limits. No pneumothorax, pleural effusion, airspace consolidation or pulmonary edema. Spondylitic spurring of the spine. Bones appear grossly in tact. IMPRESSION: No acute process. ACT 112: Negative or not required by law. The above report was generated using voice recognition software. It may contain grammatical, syntax o r spelling errors. Electronically signed by: Khanh Baca M.D. 10/15/2022 3:14 PM
--- NOTE | 2022-10-15 15:23 | Emergency Department Note ---
ED Provider Note History of Present Illness Chief Complaint: Abdominal Pain Stated Complaint: ABD PAIN Time Seen by Provider: 10/15/22 14:53 Source: patient Mode of arrival: ambulatory Limitations: no limitations This patient is a 61-year-old female who presents to the emergency department for evaluation of abdominal pain which started at 7 AM when she woke up this morning. She reports that pain has persisted throughout the day. She has had nausea and "slight vomiting." She has not had a bowel movement today which is abnormal for her. Denies any other recent changes in her bowel movements. Patient reports that she had a similar bout of pain last year and thinks this was due to an issue with her sphincter of Oddi. She denies any fevers but has had some chills. She did not take anything for pain prior to arrival. Patient does admit to alcohol use. Home Medications Medication Instructions Recorded Confirmed Type buprenorphine 8 mg-naloxone 2 mg 1 tab sublingual QAM 12/15/19 10/15/22 History sublingual tablet carvedilol 6.25 mg tablet (Coreg) 6.25 mg PO BID 12/15/19 10/15/22 History ipratropium bromide 21 mcg (0.03 2 spray intranasal TID PRN Nasal 12/15/19 06/08/04 History %) nasal spray Congestion lisinopril 5 mg tablet 5 mg PO PM 12/15/19 10/15/22 History meloxicam 7.5 mg tablet 7.5 mg PO DAILY PRN Pain 09/15/20 10/15/22 History buspirone 10 mg tablet 10 mg PO BID 07/29/22 10/15/22 History conjugated estrogens 0.625 mg/gram 0.625 mg vaginal UD 07/29/22 10/15/22 History vaginal cream (Premarin) folic acid 1 mg tablet 1 mg PO QAM 07/29/22 10/15/22 History multivitamin 1 tab PO HS 07/29/22 10/15/22 History sennosides 8.6 mg tablet (senna) 8.6 mg PO BID 07/29/22 10/15/22 History thiamine HCl (vitamin B1) 100 mg 100 mg PO QAM 07/29/22 10/15/22 History tablet turmeric root extract 500 mg tablet 500 mg PO BID 07/29/22 10/15/22 History omeprazole 20 mg capsule,delayed 20 mg PO AMPM 10/15/22 10/15/22 History release prednisone 5 mg tablet See Rx Instructions .Route .COMPLEX 10/15/22 10/15/22 History Allergies Allergy/AdvReac Type Severity Reaction Status Date / Time ampicillin Allergy Intermediate HIVES Verified 08/30/22 06:08 Penicillins Allergy Unknown Unknown Verified 08/30/22 06:08 Past Med/Surg History Medical History Alcohol dependence Anemia Cardiomyopathy Hearing deficit History of COVID-19 05/2020--mild symptoms, no symptoms now Hypertension Major depressive disorder Osteoarthritis Solitary kidney Surgical History History of appendectomy History of cardiac cath 09/06/[address] [facility]--no stents, had cardiomyopathy History of section History of ERCP History of mandibular surgery History of right cataract surgery History of shoulder surgery left History of tooth extraction Family History Other No family history of adverse response to anesthesia Social History Smoking Status: Never smoker Second Hand Exposure: No; Do You Dip or Chew Tobacco: No; Hx Alcohol Use: Yes Alcohol type: hard liquor Hx Substance Use: Yes (medical marijuana (advised on policy)) Last Used Substance: Days (ago) Substance Use Type Other:: Quit 1982 Preferred Language: Albanian Communication Ability: Effective Imaging Scheduler Required: No Beliefs That Will Affect Care: None Current Living Situation: Spouse and Family Current Living Situation Comment: Lives with and son Feels Safe at Home: Yes Assistive Devices: Contacts and Hearing Aid - Bilateral Physical Exam Vital Signs Vital Signs - 24 hr 10/15/22 14:47 10/15/22 15:41 10/15/22 15:42 Temperature 36.0 C L Temperature Source Temporal Artery Scan Pulse Rate 94 H 66 83 Pulse Rate from SpO2 Sensor 76 Respiratory Rate 20 22 Respiratory Effort / Characteristics Non-Labored Spontaneous Respiratory Depth Normal Blood Pressure 161/94 H Blood Pressure Mean 116 Pulse Oximetry 100 100 Oxygen Delivery Method Room Air Sepsis New/Unexplained Change in Mental Status N/A Sepsis Action Taken by Nursing No Action Required 10/15/22 16:00 10/15/22 16:00 10/15/22 16:35 Temperature Temperature Source Pulse Rate 70 87 Pulse Rate from SpO2 Sensor 72 Respiratory Rate 24 15 Respiratory Effort / Characteristics Respiratory Depth Blood Pressure 180/98 H Blood Pressure Mean 125 Pulse Oximetry 100 Oxygen Delivery Method Sepsis New/Unexplained Change in Mental Status Sepsis Action Taken by Nursing 10/15/22 17:00 Temperature Temperature Source Pulse Rate 90 Pulse Rate from SpO2 Sensor Respiratory Rate 19 Respiratory Effort / Characteristics Respiratory Depth Blood Pressure Blood Pressure Mean Pulse Oximetry Oxygen Delivery Method Sepsis New/Unexplained Change in Mental Status Sepsis Action Taken by Nursing VITALS: Vitals are noted on the nurse's note and reviewed by myself. GENERAL: This is a 61-year-old female, in no acute distress, sitting up in bed. SKIN: The skin was without rashes. EARS: External auditory canals clear, tympanic membranes pearly michaud without erythema or effusion bilaterally. EYES: Pupils equal round and reactive to light and accommodation. No scleral icterus. MOUTH: Mucous membranes moist. NECK: Supple without nuchal rigidity. HEART: Regular rate and rhythm without murmurs gallops or rubs. LUNGS: Clear to auscultation bilaterally without wheezes, rales or rhonchi. ABDOMEN: Positive bowel sounds x 4. Soft, tenderness in the epigastric region and periumbilical region. No guarding or rebound tenderness. NEURO: Patient was alert and oriented to person place and time. Course Administered Medications Ondansetron HCl (Ondansetron Inj 2 Mg/Ml 2 Ml Vial) 4 mg IV Q6H PRN PRN Reason: Nausea Stop: 11/14/22 18:28 Last Admin: 10/15/22 19:08 Dose: 4 mg Documented By: Discontinued Medications Hydromorphone HCl (Hydromorphone Inj 0.5 Mg/0.5 Ml Syr) 0.5 mg IV NOW STA Stop: 10/15/22 15:03 Last Admin: 10/15/22 15:18 Dose: 0.5 mg Documented By: Hydromorphone HCl (Hydromorphone Inj 0.5 Mg/0.5 Ml Syr) 0.5 mg IV NOW STA Stop: 10/15/22 16:07 Last Admin: 10/15/22 16:15 Dose: 0.5 mg Documented By: Hydromorphone HCl (Hydromorphone Inj 0.5 Mg/0.5 Ml Syr) 0.5 mg IV NOW STA Stop: 10/15/22 18:40 Last Admin: 10/15/22 18:43 Dose: 0.5 mg Documented By: Sodium Chloride (Nss 1000ml) 1,000 mls @ 999 mls/hr IV .Q1H1M STA Stop: 10/15/22 15:53 Last Infusion: 10/15/22 17:16 Dose: 0 mls/hr Documented By: Admin: 10/15/22 15:18 Dose: 999 mls/hr Documented By: Ioversol (Optiray 320 100ml) 82 ml IV ONCE ONE Stop: 10/15/22 16:28 Last Admin: 10/15/22 16:28 Dose: 82 ml Documented By: JOHN Ondansetron HCl (Ondansetron Inj 2 Mg/Ml 2 Ml Vial) 4 mg IV NOW STA Stop: 10/15/22 15:03 Last Admin: 10/15/22 15:18 Dose: 4 mg Documented By: Medical Decision Making Differential Diagnosis Appendicitis, ovarian cyst, ovarian torsion, ectopic , TOA, PID, infections, diverticulitis, UTI, obstruction, mesenteric ischemia, aortic pathology, inflammatory bowel disease, renal colic, PUD, pancreatitis, biliary pathology, hernia, volvulus, constipation, as well as other pathologies. Medical Records Attestation: I reviewed the patient's medical records. Additional Comments: Prior hospitalization was reviewed. Patient was hospitalized about a year ago for acute pancreatitis. Home Medications was personally reviewed by me Laboratory Data Attestation: I reviewed the patient's lab results. 10/15/22 15:25 10/15/22 15:25 Lab Results 10/15/22 10/15/22 10/15/22 Range/Units 15:25 15:25 17:08 WBC 14.76 H (4.8-10.8) K/ul RBC 4.42 (4.20-5.40) M/uL Hgb 14.3 (12.0-16.0) g/dl Hct 40.8 (37.0-47.0) % MCV 92.3 (80.0-100.0) fL MCH 32.4 (25.0-34.0) pg MCHC 35.0 (32.0-36.0) g/dL RDW Std Deviation 41.4 (36.4-46.3) fL RDW Coeff of Evan 12.3 (11.5-14.5) % Plt Count 312 (130-400) K/uL MPV 9.2 L (9.4-12.4) fL Immature Gran % (Auto) 0.4 % Neut % (Auto) 80.9 % Lymph % (Auto) 11.2 % [place] % (Auto) 7.2 % Eos % (Auto) 0.2 % Baso % (Auto) 0.1 % Neut # (Auto) 11.94 H (1.40-6.50) K/uL Lymph # (Auto) 1.65 (1.2-3.4) K/uL [place] # (Auto) 1.06 H (0.11-0.59) K/uL Eos # (Auto) 0.03 (0-0.50) K/uL Baso # (Auto) 0.02 (0-0.2) K/uL Immature Gran # (Auto) 0.06 (0.01-0.20) K/uL Sodium 132 L (136-145) mmol/L Potassium 3.9 (3.5-5.1) mmol/L Chloride 96 L (98-107) mmol/L Carbon Dioxide 26 (21-32) mmol/L Anion Gap 10 (3-11) BUN 17 (6-23) mg/dl Creatinine 0.50 L (0.6-1.2) mg/dl Est Cr Clr Drug Dosing 95.3 ml/min Est GFR ( Amer) 119.4 ml/min Est GFR (Non-Af Amer) 103.0 ml/min BUN/Creatinine Ratio 34.0 H (10-20) Glucose 129 H (70-99(Fasting)) mg/dl Calcium 10.0 (8.6-10.3) mg/dl Total Bilirubin 1.0 (0.2-1.0) mg/dl AST 33 (13-39) U/L ALT 31 (7-52) U/L Alkaline Phosphatase 86 (34-104) U/L Troponin I High Sens 7.2 (0-14) pg/ml Total Protein 7.6 (6.0-8.3) gm/dl Albumin 3.9 (3.4-5.0) gm/dl Globulin 3.7 (2.5-4.0) gm/dl Albumin/Globulin Ratio 1.1 (0.9-2) Lipase 1618 H (11-82) U/L Urine Color Yellow Urine Appearance Clear (Clear) Urine pH 6.5 (4.5-7.5) Ur Specific [place] > 1.045 H (1.000-1.030) Urine Protein Negative (Negative) Urine Glucose (UA) Negative (Negative) Urine Ketones Negative (Negative) Urine Blood Negative (Negative) Urine Nitrite Negative (Negative) Urine Bilirubin Negative (Negative) Urine Urobilinogen Negative (Negative) Ur Leukocyte Esterase Negative (Negative) SARS-CoV-2, RNA, NAAT (NEGATIVE) 10/15/22 Range/Units 17:20 WBC (4.8-10.8) K/ul RBC (4.20-5.40) M/uL Hgb (12.0-16.0) g/dl Hct (37.0-47.0) % MCV (80.0-100.0) fL MCH (25.0-34.0) pg MCHC (32.0-36.0) g/dL RDW Std Deviation (36.4-46.3) fL RDW Coeff of Evan (11.5-14.5) % Plt Count (130-400) K/uL MPV (9.4-12.4) fL Immature Gran % (Auto) % Neut % (Auto) % Lymph % (Auto) % [place] % (Auto) % Eos % (Auto) % Baso % (Auto) % Neut # (Auto) (1.40-6.50) K/uL Lymph # (Auto) (1.2-3.4) K/uL [place] # (Auto) (0.11-0.59) K/uL Eos # (Auto) (0-0.50) K/uL Baso # (Auto) (0-0.2) K/uL Immature Gran # (Auto) (0.01-0.20) K/uL Sodium (136-145) mmol/L Potassium (3.5-5.1) mmol/L Chloride (98-107) mmol/L Carbon Dioxide (21-32) mmol/L Anion Gap (3-11) BUN (6-23) mg/dl Creatinine (0.6-1.2) mg/dl Est Cr Clr Drug Dosing ml/min Est GFR ( Amer) ml/min Est GFR (Non-Af Amer) ml/min BUN/Creatinine Ratio (10-20) Glucose (70-99(Fasting)) mg/dl Calcium (8.6-10.3) mg/dl Total Bilirubin (0.2-1.0) mg/dl AST (13-39) U/L ALT (7-52) U/L Alkaline Phosphatase (34-104) U/L Troponin I High Sens (0-14) pg/ml Total Protein (6.0-8.3) gm/dl Albumin (3.4-5.0) gm/dl Globulin (2.5-4.0) gm/dl Albumin/Globulin Ratio (0.9-2) Lipase (11-82) U/L Urine Color Urine Appearance (Clear) Urine pH (4.5-7.5) Ur Specific [place] (1.000-1.030) Urine Protein (Negative) Urine Glucose (UA) (Negative) Urine Ketones (Negative) Urine Blood (Negative) Urine Nitrite (Negative) Urine Bilirubin (Negative) Urine Urobilinogen (Negative) Ur Leukocyte Esterase (Negative) SARS-CoV-2, RNA, NAAT NEGATIVE (NEGATIVE) Imaging Data Attestation: I personally reviewed and interpreted this imaging study as follows: Radiologist's Impression: Abdomen/Pelvis CT 10/15/22 14:[address] WITH IV CONTRAST CT DOSE: 800.90 mGy.cm HISTORY: Acute upper abdominal pain upper abd pain TECHNIQUE: Multiaxial CT images of the abdomen and pelvis were performed following the IV administration of 82 cc of Optiray, A dose lowering technique was utilized adhering to the principles of ALARA. COMPARISON STUDY: 12/15/2019 FINDINGS: Clear lung bases. No pneumatosis or peritoneal. Unremarkable spleen and adrenal glands. Unremarkable liver. Patency of the hepatic and portal veins. Mildly contracted gallbladder. Intrahepatic connection hepatic biliary duct dilation is noted with the common bile duct measuring up to 1.4 cm. Mild biliary wall thickening with increased enhancement. There is a focus of intrahepatic pneumobilia on image 75 series 3. The degree of biliary ductal dilation appears stable from prior. Mild pancreatic ductal dilation, 5 mm. No shunting lesion or stone identified. There is homogeneous enhancement of the pancreas. Interstitial edema of the pancreatic head uncinate process. Moderate edema with free fluid within the lesser sac descending into the mesentery. Trace pelvic ascites with small amount of free fluid tracking along the pericolic gutters. Absent left kidney with an compensatory upper tree of the right kidney. No urolith or hydronephrosis. Unremarkable urinary bladder. Heterogeneity of the uterine fundus. The endometrium measures in the upper limits of normal at 5 mm. No abdominal aortic aneurysm or lymphadenopathy. No bowel obstruction or bowel wall thickening. Gaseous distention of the transverse colon with mild to moderate colonic fecal retention. Numerous stool-filled appearance of small bowel. Appendectomy. Unremarkable soft tissues. No acute fracture. IMPRESSION: 1. Acute interstitial edematous pancreatitis. 2. Stable biliary ductal dilation with a single focus of pneumobilia. Additionally, there is mild pancreatic duct dilation without obstructing stone or lesion identified. 3. Small volume of abdominal pelvic ascites. 4. Absent left kidney. 5. Heterogeneity of the uterine fundus with borderline thickening of the endometrium. Correlation with nonemergent follow-up pelvic ultrasound recommended. 6. Additional findings as above. ACT 112: Negative or not required by law. The above report was generated using voice recognition software. It may contain grammatical, syntax or spelling errors. Electronically signed by: Khanh Baca M.D. 10/15/2022 5:09 PM Chest X-Ray 10/15/22 14:53 XR chest 1V portable HISTORY: 61 years-old Female abd pain acute chest and abdominal pain COMPARISON: 09/15/2020 TECHNIQUE: AP view of the chest FINDINGS: Cardiomediastinal and hilar silhouettes are within normal limits. No pneumothorax, pleural effusion, airspace consolidation or pulmonary edema. Spondylitic spurring of the spine. Bones appear grossly intact. IMPRESSION: No acute process. ACT 112: Negative or not required by law. The above report was generated using voice recognition software. It may contain grammatical, syntax or spelling errors. Electronically signed by: Khanh Baca M.D. 10/15/2022 3:14 PM ECG Data Attestation: I personally reviewed and interpreted this ECG as follows: Indication: + abdominal pain Rate (beats per minute): 84 Rhythm: + sinus rhythm ECG Intervals/blocks: + Normal QRS ECG ST segments: + Normal ST segments ECG Findings: + PVCs (frequent) Change: the following changes noted (PVCs noted) MDM Narrative Continuous site monitor: Order was placed for continuous site monitor. Patient was placed on the site monitor. Patient was noted to be in normal sinus rhythm with occasional PVCs at an initial rate of 85 bpm. The patient is a 61-year-old female who presents today complaining of upper abdominal pain. Labs revealed a leukocytosis of 14,000 and lipase of 1618 LFTs within normal limits. No concerning electrolyte abnormalities. CT shows evidence of acute pancreatitis. Patient treated with IV fluids., Antiemetics a nd Dilaudid x2. [facility] Impression Acute pancreatitis Discharge Plan Visit Data Chief Complaint: Abdominal Pain Stated Complaint: ABD PAIN ED Provider: Walter Melendez ED Midlevel Provider: Tana Medley Discharge Problem: Acute pancreatitis Forms Stand Alone Forms: [facility] [employer] Prescriptions Prescriptions: No Action carvedilol [Coreg] 6.25 mg tablet 6.25 mg PO BID lisinopril 5 mg tablet 5 mg PO PM ipratropium bromide 0.03 % spray,non-aerosol 2 spray INTRANASAL TID PRN (Reason: Nasal Congestion) buprenorphine-naloxone 8-2 mg tablet, sublingual 1 tab SUBLINGUAL QAM meloxicam 7.5 mg tablet 7.5 mg PO DAILY PRN (Reason: Pain) multivitamin Tablet 1 tab PO HS thiamine HCl (vitamin B1) 100 mg tablet 100 mg PO QAM folic acid 1 mg tablet 1 mg PO QAM turmeric root extract 500 mg Tablet 500 mg PO BID buspirone 10 mg Tablet 10 mg PO BID sennosides [senna] 8.6 mg Tablet 8.6 mg PO BID Premarin 0.625 mg/gram Cream 0.625 mg VAGINAL UD Rx Instructions: off 5 days; repeat cycle prednisone 5 mg tablet See Rx Instructions .ROUTE .COMPLEX Rx Instructions: take 4 tabs daily x 7 days,3 tabs x 7 days,2 tabs x 7 days, then 1 tab daily x 7 days until finished...ordered 10/05/22 omeprazole 20 mg capsule,delayed release(DR/EC) 20 mg PO AMPM Referrals Referrals: Piedad Chris MD [Primary Care Provider] -
[2022-10-15 15:49] LABS: Basophils # (auto) 0.02 K/uL (0-0.2); Basophils % (auto) 0.1 %; Eosinophils # (auto) 0.03 K/uL (0-0.50); Eosinophils % (auto) 0.2 %; Hematocrit (blood only) 40.8 % (37.0-47.0); Hemoglobin 14.3 g/dl (12.0-16.0); Immature Granulocytes # (auto) 0.06 K/uL (0.01-0.20); Immature Granulocytes % (auto) 0.4 %; Lymphocytes # (auto) 1.65 K/uL (1.2-3.4); Lymphocytes % (auto) 11.2 %; Mean Corpuscular Hemoglobin 32.4 pg (25.0-34.0); Mean Corpuscular Volume 92.3 fL (80.0-100.0); Mean Platelet Volume 9.2 fL (9.4-12.4); Monocytes # (auto) 1.06 K/uL (0.11-0.59); Monocytes % (auto) 7.2 %; Neutrophils # (auto) 11.94 K/uL (1.40-6.50); Neutrophils % (auto) 80.9 %; Platelet Count 312 K/uL (130-400); RDW Coefficient of Variation 12.3 % (11.5-14.5); RDW Standard Deviation 41.4 fL (36.4-46.3); Red Blood Count 4.42 M/uL (4.20-5.40); White Blood Count 14.76 K/ul (4.8-10.8)
[2022-10-15 15:57] LABS: Creatinine Clr Calc Pharmacy 95.3 ml/min; Est GFR (African American) 119.4 ml/min; Potassium 3.9 mmol/L (3.5-5.1)
[2022-10-15 16:02] LABS: Troponin I High Sensitivity 7.2 pg/ml (0-14)
[2022-10-15 16:20] LABS: Albumin Globulin Ratio 1.1 (0.9-2); Albumin Level 3.9 gm/dl (3.4-5.0); Globulin 3.7 gm/dl (2.5-4.0); Total Protein 7.6 gm/dl (6.0-8.3)
[2022-10-15] MEDS ORDERED: OPTIRAY 320 100ml IV ONE (16:27)
--- NOTE | 2022-10-15 17:11 | CT Scan Report ---
ABDOMEN AND PELVIS CT WITH IV CONTRAST CT DOSE: 800.90 mGy.cm HISTORY: Acute upper abdominal pain upper abd pain TECHNIQUE: Multiaxial CT images of the abdomen and pelvis were performed following the IV administrat ion of 82 cc of Optiray, A dose lowering technique was utilized adhering to the principles of ALARA. COMPARISON STUDY: 12/15/2019 FINDINGS: Clear lung bases. No pneumatosis or peritoneal. Unremarkable spleen and adrenal glands. Unr emarkable liver. Patency of the hepatic and portal veins. Mildly contracted gallbladder. Intrahepatic connection hepatic biliary duct dilation is noted with the common bile duct measuring up to 1.4 cm. Mild biliary wall thickening with increased enhancement. There is a focus of intrahepatic pneumobilia on image 75 series 3. The degree of biliary ductal dilation appears stable from prior. Mild pancreat ic ductal dilation, 5 mm. No shunting lesion or stone identified. There is homogeneous enhancement of the pancreas. Interstitial edema of the pancreatic head uncinate process. Moderate edema with free f luid within the lesser sac descending into the mesentery. Trace pelvic ascites with small amount of f ree fluid tracking along the pericolic gutters. Absent left kidney with an compensatory upper tree of the right kidney. No urolith or hydronephrosis. Unremarkable urinary bladder. Heterogeneity of the uterine fundus. The endometrium measures in the u pper limits of normal at 5 mm. No abdominal aortic aneurysm or lymphadenopathy. No bowel obstruction or bowel wall thickening. Gaseous distention of the transverse colon with mild to moderate colonic fe fatemeh retention. Numerous stool-filled appearance of small bowel. Appendectomy. Unremarkable soft tissu es. No acute fracture. IMPRESSION: 1. Acute interstitial edematous pancreatitis. 2. Stable biliary ductal dilation with a single focus of pneumobilia. Additionally, there is mild su creatic duct dilation without obstructing stone or lesion identified. 3. Small volume of abdominal pelvic ascites. 4. Absent left kidney. 5. Heterogeneity of the uterine fundus with borderline thickening of the endometrium. Correlation wit h nonemergent follow-up pelvic ultrasound recommended. 6. Additional findings as above. ACT 112: Negative or not required by law. The above report was generated using voice recognition software. It may contain grammatical, syntax o r spelling errors. Electronically signed by: Khanh Baca M.D. 10/15/2022 5:09 PM
[2022-10-15] MEDS ORDERED: POLYETHYLENE (MIRALAX) 17 GM PACK PO PRN (18:29)
[2022-10-15] MEDS ORDERED: ONDANSETRON INJ 2 MG/ML 2 ML VIAL IV PRN (18:29)
--- NOTE | 2022-10-15 19:11 | History & Physical Report ---
Date of Service October 15, 2022 Assessment & Plan (1) Acute pancreatitis: (2) Alcohol use disorder: (3) Chronic pain: (4) Junctional cardiac arrhythmia: (5) Dental disorder: (6) GERD (gastroesophageal reflux disease): (7) Mood disorder: (8) Solitary kidney, acquired: Plan 59yoF with PMHx of alcohol abuse, Mood disorder, R solitary kidney, HTN, chronic pain on suboxone, GERD admitted with pancreatitis. Acute pancreatitis Pt with abdominal pain, N/V CT abd/pelvis with noted "Acute interstitial edematous pancreatitis and Stable biliary ductal dilation with a single focus of pneumobilia, mild pancreatic duct dilation without obstructing stone or lesion identified" WBC elevated, blood cultures pending IV fluids @200, IV cefepime and Flagyl, IV zofran prn NPO after midnight Continue home suboxone with IV morphine 2mg q3h, IV tyleno for pain. CT abdomen/pelvis did note some constipation Constipation regimen: home senna BID scheduled with miralax daily PRN and colace 100mg BID PRN ordered GI consult Alcohol Abuse Pt states drink of choice is rum with flavored water Last drink before coming into the ED, before that was 5AM this morning AWSS protocol with gabapentin, Ativan Banana bag, hold home supplements Pt in contemplative phase in regards to quitting Consider providing resources at discharge Chronic pain On suboxone at home as noted above States she was started on this recently after becoming ""tolerant to tramadol" Pain regimen as above, lidocaine patches ordered for her back Junctional rhythm on EKG Suspect related to her frequent PVCs in the setting of above Repeat EKG ordered for the AM Consider further cardiac workup if persistent Dental disease States she is currently prescribed (and taking) prednisone by her dentist for lesions seen in her mouth. Continue Uterine abnormality noted on CT Needs outpatient workup with pelvic US Hold home premarin HTN continue home lisinopril and coreg GERD on home pepcid continue Mood disorder Continue home buspar R solitary kidney Kidney function stable Monitor DVT prophylaxis: CODE STATUS: Full code Diet: NPO after midnight Dispo: PCU/tele in case of withdrawal with current EKG History of Present Illness Chief Complaint: Abdominal pain Primary Care Provider: Piedad Chris MD 59yoF with PMHx of alcohol abuse, Mood disorder, R solitary kidney, HTN, chronic pain on suboxone, GERD admitted with pancreatitis. She states that she had the acute onset of LUQ pain associated with N/V. She states that she knows she needs to quit drinking but can go for some time without complications. Her last drink was right before leaving to come to the ED, was 5AM before that. States her drink of choice is rum with flavored water. Declines to quantify exactly how much she drinks a week. Not able to tolerate food. Also notes a Hx of chronic pain and states she was recently started on suboxone after she "became tolerant to tramadol". States she is currently in quite a bit of pain and is requesting pain medication. States that this has happened in the past but not recently. Allergies Allergy/AdvReac Type Severity Reaction Status Date / Time ampicillin Allergy Intermediate HIVES Verified 08/30/22 06:08 Penicillins Allergy Unknown Unknown Verified 08/30/22 06:08 Home Medications Medication Instructions Recorded Confirmed Type buprenorphine 8 mg-naloxone 2 mg 1 tab sublingual QAM 12/15/19 10/15/22 History sublingual tablet carvedilol 6.25 mg tablet (Coreg) 6.25 mg PO BID 12/15/19 10/15/22 History ipratropium bromide 21 mcg (0.03 2 spray intranasal TID PRN Nasal 12/15/19 10/15/22 History %) nasal spray Congestion lisinopril 5 mg tablet 5 mg PO PM 12/15/19 10/15/22 History meloxicam 7.5 mg tablet 7.5 mg PO DAILY PRN Pain 09/15/20 10/15/22 History buspirone 10 mg tablet 10 mg PO BID 07/29/22 10/15/22 History conjugated estrogens 0.625 mg/gram 0.625 mg vaginal UD 07/29/22 10/15/22 History vaginal cream (Premarin) folic acid 1 mg tablet 1 mg PO QAM 07/29/22 10/15/22 History multivitamin 1 tab PO HS 07/29/22 10/15/22 History sennosides 8.6 mg tablet (senna) 8.6 mg PO BID 07/29/22 10/15/22 History thiamine HCl (vitamin B1) 100 mg 100 mg PO QAM 07/29/22 10/15/22 History tablet turmeric root extract 500 mg tablet 500 mg PO BID 07/29/22 10/15/22 History omeprazole 20 mg capsule,delayed 20 mg PO AMPM 10/15/22 10/15/22 History release prednisone 5 mg tablet See Rx Instructions .Route .COMPLEX 10/15/22 10/15/22 History Past Med/Surg History Medical History Alcohol dependence Anemia Cardiomyopathy Hearing deficit History of COVID-19 05/2020--mild symptoms, no symptoms now Hypertension Major depressive disorder Osteoarthritis Solitary kidney Surgical History History of appendectomy History of cardiac cath 09/06/12 @ [facility]--no stents, had cardiomyopathy History of section History of ERCP History of mandibular surgery History of right cataract surgery History of shoulder surgery left History of tooth extraction Family History Other No family history of adverse response to anesthesia Social History Smoking Status: Never smoker Second Hand Exposure: No; Do You Dip or Chew Tobacco: No; Tobacco Cessation Education Requested by Patient: No Hx Alcohol Use: Yes Alcohol type: hard liquor Hx Substance Use: No Preferred Language: Kinyarwanda Communication Ability: Effective Ocular Pathologist Required: No Beliefs That Will Affect Care: None Current Living Situation: Spouse Current Living Situation Comment: Lives with and son Other Information That Helps Us Care for You: No Feels Safe at Home: Yes Safety Concerns: Feels Safe At This Time Assistive Devices: None Review of Systems Review of Systems: All systems reviewed & are unremarkable except as noted in HPI & below Physical Exam Physical Exam: General: Alert, oriented. No acute distress, though pt states she is in a lot of pain Skin: No noted rashes or bruises Psych: Appropriate mood and affect Neuro: No gross deficits HEENT: NC/AT CV: RRR, Normal s1, s2. Resp: Breath sounds clear bilaterally, no increased effort of breathing. Abdomen: tender diffusely Extremities: No edema in lower extremities bilaterally. Results & Data Results & Data Vital Signs (Past 12 Hours) Vital Signs Temp Pulse Resp BP Pulse Ox O2 Del Method 10/15/22 17:00 90 19 10/15/22 16:35 87 15 10/15/22 16:00 70 24 100 10/15/22 16:00 180/98 H 10/15/22 15:42 83 22 100 10/15/22 15:41 66 10/15/22 14:47 36.0 C L 94 H 20 161/94 H 100 Room Air (1) Acute pancreatitis Acute pancreatitis complication: unspecified Pancreatitis type: alcohol induced Qualified Code(s): K85.20 - Alcohol induced acute pancreatitis without necrosis or infection
[2022-10-15 19:26] LABS: Appearance Urine Clear (Clear); Bilirubin Urine Negative (Negative); Blood Urine Negative (Negative); Color Urine Yellow; Glucose Urine UA Negative (Negative); Ketones Urine Negative (Negative); Leukocyte Esterase Urine Negative (Negative); Nitrite Urine Negative (Negative); Protein Urine Negative (Negative); Specific Gravity Urine > 1.045 (1.000-1.030); Urobilinogen Urine Negative (Negative); pH Urine 6.5 (4.5-7.5)
[2022-10-15] MEDS ORDERED: Ativan PO Alcohol Withdrawal--Active Protocol PO PRN (20:56)
[2022-10-15] MEDS ORDERED: GABAPENTIN 1200MG ALCOHOL WITHDRAWAL LOAD PO STA (20:56)
[2022-10-15] MEDS ORDERED: LORazepam 1 MG TAB PO PRN (20:56)
[2022-10-15] MEDS ORDERED: LIDOCAINE 5% 1 PATCH TD STA (20:56)
[2022-10-15] MEDS ORDERED: CEROVITE ADV FORMULA TAB PO STA (20:56)
[2022-10-15] MEDS ORDERED: ACETAMINOPHEN 1,000 MG/100 ML VIAL IV PRN (20:56)
[2022-10-15] MEDS ORDERED: THIAMINE HCL 100 MG, FOLIC ACID 1 MG in SODIUM CHLORIDE 0.9% 1000ML 1,000 ML IV SCH (20:56)
[2022-10-15] MEDS ORDERED: DOCUSATE SODIUM 100 MG CAP PO PRN (20:56)
[2022-10-15] MEDS ORDERED: GABAPENTIN 600 MG TAB PO ONE (20:56)
[2022-10-15] MEDS: MoRPHine SULFATE 2 MG/ML CARP IV PRN (21:19)
[2022-10-15] MEDS: LORazepam 1 MG TAB PO PRN (21:28)
[2022-10-15] MEDS: CEFEPIME 2,000 MG in SYRINGE 0 ML IV SCH (21:42)
[2022-10-15] MEDS: metroNIDAZOLE 500 MG/100 ML BAG IV SCH (21:43)
[2022-10-15] MEDS: lisinopril 5 MG TAB PO SCH (21:46)
[2022-10-15] MEDS: busPIRone 5 MG TAB PO SCH (21:46)
[2022-10-15] MEDS: PANTOprazole 40 MG TAB PO SCH (21:46)
[2022-10-15] MEDS: carvediloL 6.25 MG TAB PO SCH (21:46)
[2022-10-15] MEDS: SENNA 8.6 MG TAB PO SCH (21:47)
[2022-10-15] MEDS: SODIUM CHLORIDE 0.9% 1000ML 1,000 ML IV SCH (22:46)
[2022-10-16] MEDS: MoRPHine SULFATE 2 MG/ML CARP IV PRN ×3 (02:44→18:25)
[2022-10-16 05:41] LABS: Albumin Globulin Ratio 1.1 (0.9-2); Albumin Level 3.2 gm/dl (3.4-5.0); BUN Creatinine Ratio 26.8 (10-20); Bilirubin,Total 1.1 mg/dl (0.2-1.0); Calcium 8.5 mg/dl (8.6-10.3); Creatinine Clr Calc Pharmacy 116.2 ml/min; Est GFR (African American) 127.4 ml/min; Globulin 2.9 gm/dl (2.5-4.0); Potassium 3.7 mmol/L (3.5-5.1); Total Protein 6.1 gm/dl (6.0-8.3)
[2022-10-16 05:53] LABS: Basophils # (auto) 0.02 K/uL (0-0.2); Basophils % (auto) 0.1 %; Eosinophils % (auto) 0.7 %; Hematocrit (blood only) 39.7 % (37.0-47.0); Hemoglobin 14.2 g/dl (12.0-16.0); Immature Granulocytes # (auto) 0.09 K/uL (0.01-0.20); Immature Granulocytes % (auto) 0.7 %; Lymphocytes % (auto) 11.6 %; Mean Corpuscular Hemoglobin 32.3 pg (25.0-34.0); Mean Corpuscular Hgb Conc 35.8 g/dL (32.0-36.0); Mean Corpuscular Volume 90.4 fL (80.0-100.0); Mean Platelet Volume 9.5 fL (9.4-12.4); Monocytes # (auto) 1.09 K/uL (0.11-0.59); Monocytes % (auto) 7.9 %; Neutrophils # (auto) 10.94 K/uL (1.40-6.50); Platelet Count 270 K/uL (130-400); RDW Coefficient of Variation 12.5 % (11.5-14.5); RDW Standard Deviation 41.5 fL (36.4-46.3); Red Blood Count 4.39 M/uL (4.20-5.40); White Blood Count 13.84 K/ul (4.8-10.8)
[2022-10-16 05:59] LABS: Partial Thromboplastin Time 26.9 Seconds (21.0-31.0); Prothrombin Time 10.7 Seconds (9.0-12.0)
[2022-10-16] MEDS: SODIUM CHLORIDE 0.9% 1000ML 1,000 ML IV SCH ×3 (06:03→18:18)
[2022-10-16] MEDS: metroNIDAZOLE 500 MG/100 ML BAG IV SCH ×3 (06:03→21:39)
[2022-10-16] MEDS: GABAPENTIN 600 MG TAB PO SCH ×3 (06:04→21:41)
[2022-10-16] MEDS: BUPRENORPHINE/NALOXONE 8/2 MG TAB SL SCH (08:02)
[2022-10-16] MEDS: PANTOprazole 40 MG TAB PO SCH ×2 (08:03→21:39)
[2022-10-16] MEDS: carvediloL 6.25 MG TAB PO SCH ×2 (08:03→21:39)
[2022-10-16] MEDS: SENNA 8.6 MG TAB PO SCH ×2 (08:03→21:40)
[2022-10-16] MEDS: predniSONE 5 MG TAB PO SCH (08:04)
[2022-10-16] MEDS: busPIRone 5 MG TAB PO SCH ×2 (08:04→21:40)
[2022-10-16] MEDS: LORazepam 1 MG TAB PO PRN ×2 (08:21→18:23)
[2022-10-16] MEDS ORDERED: hydrALAZINE HCL 20 MG/ML VIAL IV PRN (08:28)
--- NOTE | 2022-10-16 09:23 | Gastrointestinal Consultation ---
Date of Consultation October 16, 2022 Assessment & Plan (1) Acute pancreatitis: She has acute alcoholic pancreatitis. Agree with fluid resuscitation and pain control. Not much else to offer. I counseled her about her drinking and the importance of stopping. Interesting that her is an alcohol and drug abuse counselor. History of Present Illness Reason for Consultation: pancreatitis Attending Physician: Angel Epps MD History of Present Illness 61 year old female admitted with abdominal pain and findings consistent with pancreatitis. She drinks at least 10 drinks a day by history. "never bothered her before". She had pancreatitis two years ago and underwent ERCP by Dr. Zavala for "double duct sign". She doesn't have chronic problems with her stomach. Had colonoscopy 7 years ago and it was "normal". Allergies Allergy/AdvReac Type Severity Reaction Status Date / Time ampicillin Allergy Intermediate HIVES Verified 08/30/22 06:08 Penicillins Allergy Unknown Unknown Verified 08/30/22 06:08 Home Medications Medication Instructions Recorded Confirmed Type buprenorphine 8 mg-naloxone 2 mg 1 tab sublingual QAM 12/15/19 10/15/22 History sublingual tablet carvedilol 6.25 mg tablet (Coreg) 6.25 mg PO BID 12/15/19 10/15/22 History ipratropium bromide 21 mcg (0.03 2 spray intranasal TID PRN Nasal 12/15/19 10/15/22 History %) nasal spray Congestion lisinopril 5 mg tablet 5 mg PO PM 12/15/19 10/15/22 History meloxicam 7.5 mg tablet 7.5 mg PO DAILY PRN Pain 09/15/20 10/15/22 History buspirone 10 mg tablet 10 mg PO BID 07/29/22 10/15/22 History conjugated estrogens 0.625 mg/gram 0.625 mg vaginal UD 07/29/22 10/15/22 History vaginal cream (Premarin) folic acid 1 mg tablet 1 mg PO QAM 07/29/22 10/15/22 History multivitamin 1 tab PO HS 07/29/22 10/15/22 History sennosides 8.6 mg tablet (senna) 8.6 mg PO BID 07/29/22 10/15/22 History thiamine HCl (vitamin B1) 100 mg 100 mg PO QAM 07/29/22 10/15/22 History tablet turmeric root extract 500 mg tablet 500 mg PO BID 07/29/22 10/15/22 History omeprazole 20 mg capsule,delayed 20 mg PO AMPM 10/15/22 10/15/22 History release prednisone 5 mg tablet See Rx Instructions .Route .COMPLEX 10/15/22 10/15/22 History Patient History Medical History Alcohol dependence Anemia Cardiomyopathy Hearing deficit History of COVID-19 05/2020--mild symptoms, no symptoms now Hypertension Major depressive disorder Osteoarthritis Solitary kidney Surgical History History of appendectomy History of cardiac cath 09/06/12 @ [facility]--no stents, had cardiomyopathy History of section History of ERCP History of mandibular surgery History of right cataract surgery History of shoulder surgery left History of tooth extraction Family History Other No family history of adverse response to anesthesia Social History Smoking Status: Never smoker Second Hand Exposure: No; Do You Dip or Chew Tobacco: No; Tobacco Cessation Education Requested by Patient: No Hx Alcohol Use: Yes Alcohol type: hard liquor Hx Substance Use: No Preferred Language: Polish Communication Ability: Effective Industrial Painter Required: No Beliefs That Will Affect Care: None Current Living Situation: Spouse Current Living Situation Comment: Lives with and son Other Information That Helps Us Care for You: No Feels Safe at Home: Yes Safety Concerns: Feels Safe At This Time Assistive Devices: None Review of Systems Review of Systems: All systems reviewed & are unremarkable except as noted in HPI & below Physical Exam Constitutional: WD/WN, vitals as above no acute distress Eyes: PERRL, conjunctivae normal, anicteric sclerae ENMT: external ear and nose normal, oropharynx normal Neck: trachea midline, no thyromegaly Respiratory: normal respiratory effort, lungs clear to auscultation Cardiovascular: RRR, no murmur, no edema Gastrointestinal (Abdomen): normal bowel sounds, soft, nontender, no hepatosplenomegaly Musculoskeletal: Extremities: no cyanosis and no clubbing Skin: no rashes, warm and dry Neurologic: PERRL, EOMI, accommodation nl, no face palsy, no dysarthria Psychiatric: Orientation: alert and oriented x 3 Results & Data Vital Signs (Past 12 Hours) Vital Signs Temp Pulse Pulse Pulse Resp BP BP 10/16/22 07:43 36.9 C 78 20 194/92 H 191/92 H 10/16/22 07:38 89 10/16/22 02:49 36.8 C 89 16 166/92 H 10/16/22 00:09 75 10/15/22 22:49 36.6 C 77 20 175/103 H Pulse Ox O2 Del Method 10/16/22 07:43 95 Room Air 10/16/22 07:38 10/16/22 02:49 96 Room Air 10/16/22 00:09 10/15/22 22:49 97 Room Air Laboratory Results 10/16/22 10/16/22 10/16/22 Range/Units 04:41 04:41 04:41 WBC 13.84 H (4.8-10.8) K/ul RBC 4.39 (4.20-5.40) M/uL Hgb 14.2 (12.0-16.0) g/dl Hct 39.7 (37.0-47.0) % MCV 90.4 (80.0-100.0) fL MCH 32.3 (25.0-34.0) pg MCHC 35.8 (32.0-36.0) g/dL RDW Std Deviation 41.5 (36.4-46.3) fL RDW Coeff of Evan 12.5 (11.5-14.5) % Plt Count 270 (130-400) K/uL MPV 9.5 (9.4-12.4) fL Immature Gran % (Auto) 0.7 % Neut % (Auto) 79.0 % Lymph % (Auto) 11.6 % [place] % (Auto) 7.9 % Eos % (Auto) 0.7 % Baso % (Auto) 0.1 % Neut # (Auto) 10.94 H (1.40-6.50) K/uL Lymph # (Auto) 1.60 (1.2-3.4) K/uL [place] # (Auto) 1.09 H (0.11-0.59) K/uL Eos # (Auto) 0.10 (0-0.50) K/uL Baso # (Auto) 0.02 (0-0.2) K/uL Immature Gran # (Auto) 0.09 (0.01-0.20) K/uL PT 10.7 (9.0-12.0) Seconds INR 1.0 (0.9-1.1) APTT 26.9 (21.0-31.0) Seconds PTT Ratio 1.0 Sodium 132 L (136-145) mmol/L Potassium 3.7 (3.5-5.1) mmol/L Chloride 101 (98-107) mmol/L Carbon Dioxide 23 (21-32) mmol/L Anion Gap 8 (3-11) BUN 11 (6-23) mg/dl Creatinine 0.41 L (0.6-1.2) mg/dl Est Cr Clr Drug Dosing 116.2 ml/min Est GFR ( Amer) 127.4 ml/min Est GFR (Non-Af Amer) 110.0 ml/min BUN/Creatinine Ratio 26.8 H (10-20) Glucose 93 (70-99(Fasting)) mg/dl Calcium 8.5 L (8.6-10.3) mg/dl Total Bilirubin 1.1 H (0.2-1.0) mg/dl AST 21 (13-39) U/L ALT 21 (7-52) U/L Alkaline Phosphatase 69 (34-104) U/L Troponin I High Sens (0-14) pg/ml Total Protein 6.1 (6.0-8.3) gm/dl Albumin 3.2 L (3.4-5.0) gm/dl Globulin 2.9 (2.5-4.0) gm/dl Albumin/Globulin Ratio 1.1 (0.9-2) Lipase (11-82) U/L Urine Color Urine Appearance (Clear) Urine pH (4.5-7.5) Ur Specific [place] (1.000-1.030) Urine Protein (Negative) Urine Glucose (UA) (Negative) Urine Ketones (Negative) Urine Blood (Negative) Urine Nitrite (Negative) Urine Bilirubin (Negative) Urine Urobilinogen (Negative) Ur Leukocyte Esterase (Negative) SARS-CoV-2, RNA, NAAT (NEGATIVE) 10/15/22 10/15/22 10/15/22 Range/Units 17:20 17:08 15:25 WBC (4.8-10.8) K/ul RBC (4.20-5.40) M/uL Hgb (12.0-16.0) g/dl Hct (37.0-47.0) % MCV (80.0-100.0) fL MCH (25.0-34.0) pg MCHC (32.0-36.0) g/dL RDW Std Deviation (36.4-46.3) fL RDW Coeff of Evan (11.5-14.5) % Plt Count (130-400) K/uL MPV (9.4-12.4) fL Immature Gran % (Auto) % Neut % (Auto) % Lymph % (Auto) % [place] % (Auto) % Eos % (Auto) % Baso % (Auto) % Neut # (Auto) (1.40-6.50) K/uL Lymph # (Auto) (1.2-3.4) K/uL [place] # (Auto) (0.11-0.59) K/uL Eos # (Auto) (0-0.50) K/uL Baso # (Auto) (0-0.2) K/uL Immature Gran # (Auto) (0.01-0.20) K/uL PT (9.0-12.0) Seconds INR (0.9-1.1) APTT (21.0-31.0) Seconds PTT Ratio Sodium 132 L (136-145) mmol/L Potassium 3.9 (3.5-5.1) mmol/L Chloride 96 L (98-107) mmol/L Carbon Dioxide 26 (21-32) mmol/L Anion Gap 10 (3-11) BUN 17 (6-23) mg/dl Creatinine 0.50 L (0.6-1.2) mg/dl Est Cr Clr Drug Dosing 95.3 ml/min Est GFR ( Amer) 119.4 ml/min Est GFR (Non-Af Amer) 103.0 ml/min BUN/Creatinine Ratio 34.0 H (10-20) Glucose 129 H (70-99(Fasting)) mg/dl Calcium 10.0 (8.6-10.3) mg/dl Total Bilirubin 1.0 (0.2-1.0) mg/dl AST 33 (13-39) U/L ALT 31 (7-52) U/L Alkaline Phosphatase 86 (34-104) U/L Troponin I High Sens 7.2 (0-14) pg/ml Total Protein 7.6 (6.0-8.3) gm/dl Albumin 3.9 (3.4-5.0) gm/dl Globulin 3.7 (2.5-4.0) gm/dl Albumin/Globulin Ratio 1.1 (0.9-2) Lipase 1618 H (11-82) U/L Urine Color Yellow Urine Appearance Clear (Clear) Urine pH 6.5 (4.5-7.5) Ur Specific [place] > 1.045 H (1.000-1.030) Urine Protein Negative (Negative) Urine Glucose (UA) Negative (Negative) Urine Ketones Negative (Negative) Urine Blood Negative (Negative) Urine Nitrite Negative (Negative) Urine Bilirubin Negative (Negative) Urine Urobilinogen Negative (Negative) Ur Leukocyte Esterase Negative (Negative) SARS-CoV-2, RNA, NAAT NEGATIVE (NEGATIVE) 10/15/22 Range/Units 15:25 WBC 14.76 H (4.8-10.8) K/ul RBC 4.42 (4.20-5.40) M/uL Hgb 14.3 (12.0-16.0) g/dl Hct 40.8 (37.0-47.0) % MCV 92.3 (80.0-100.0) fL MCH 32.4 (25.0-34.0) pg MCHC 35.0 (32.0-36.0) g/dL RDW Std Deviation 41.4 (36.4-46.3) fL RDW Coeff of Evan 12.3 (11.5-14.5) % Plt Count 312 (130-400) K/uL MPV 9.2 L (9.4-12.4) fL Immature Gran % (Auto) 0.4 % Neut % (Auto) 80.9 % Lymph % (Auto) 11.2 % [place] % (Auto) 7.2 % Eos % (Auto) 0.2 % Baso % (Auto) 0.1 % Neut # (Auto) 11.94 H (1.40-6.50) K/uL Lymph # (Auto) 1.65 (1.2-3.4) K/uL [place] # (Auto) 1.06 H (0.11-0.59) K/uL Eos # (Auto) 0.03 (0-0.50) K/uL Baso # (Auto) 0.02 (0-0.2) K/uL Immature Gran # (Auto) 0.06 (0.01-0.20) K/uL PT (9.0-12.0) Seconds INR (0.9-1.1) APTT (21.0-31.0) Seconds PTT Ratio Sodium (136-145) mmol/L Potassium (3.5-5.1) mmol/L Chloride (98-107) mmol/L Carbon Dioxide (21-32) mmol/L Anion Gap (3-11) BUN (6-23) mg/dl Creatinine (0.6-1.2) mg/dl Est Cr Clr Drug Dosing ml/min Est GFR ( Amer) ml/min Est GFR (Non-Af Amer) ml/min BUN/Creatinine Ratio (10-20) Glucose (70-99(Fasting)) mg/dl Calcium (8.6-10.3) mg/dl Total Bilirubin (0.2-1.0) mg/dl AST (13-39) U/L ALT (7-52) U/L Alkaline Phosphatase (34-104) U/L Troponin I High Sens (0-14) pg/ml Total Protein (6.0-8.3) gm/dl Albumin (3.4-5.0) gm/dl Globulin (2.5-4.0) gm/dl Albumin/Globulin Ratio (0.9-2) Lipase (11-82) U/L Urine Color Urine Appearance (Clear) Urine pH (4.5-7.5) Ur Specific [place] (1.000-1.030) Urine Protein (Negative) Urine Glucose (UA) (Negative) Urine Ketones (Negative) Urine Blood (Negative) Urine Nitrite (Negative) Urine Bilirubin (Negative) Urine Urobilinogen (Negative) Ur Leukocyte Esterase (Negative) SARS-CoV-2, RNA, NAAT (NEGATIVE) Diagnostic Findings Abdomen/Pelvis CT 10/15/22 14:[address] WITH IV CONTRAST CT DOSE: 800.90 mGy.cm HISTORY: Acute upper abdominal pain upper abd pain TECHNIQUE: Multiaxial CT images of the abdomen and pelvis were performed following the IV administration of 82 cc of Optiray, A dose lowering technique was utilized adhering to the principles of ALARA. COMPARISON STUDY: 12/15/2019 FINDINGS: Clear lung bases. No pneumatosis or peritoneal. Unremarkable spleen and adrenal glands. Unremarkable liver. Patency of the hepatic and portal veins. Mildly contracted gallbladder. Intrahepatic connection hepatic biliary duct dilation is noted with the common bile duct measuring up to 1.4 cm. Mild biliary wall thickening with increased enhancement. There is a focus of intrahepatic pneumobilia on image 75 series 3. The degree of biliary ductal dilation appears stable from prior. Mild pancreatic ductal dilation, 5 mm. No shunting lesion or stone identified. There is homogeneous enhancement of the pancreas. Interstitial edema of the pancreatic head uncinate process. Moderate edema with free fluid within the lesser sac descending into the mesentery. Trace pelvic ascites with small amount of free fluid tracking along the pericolic gutters. Absent left kidney with an compensatory upper tree of the right kidney. No urolith or hydronephrosis. Unremarkable urinary bladder. Heterogeneity of the uterine fundus. The endometrium measures in the upper limits of normal at 5 mm. No abdominal aortic aneurysm or lymphadenopathy. No bowel obstruction or bowel wall thickening. Gaseous distention of the transverse colon with mild to moderate colonic fecal retention. Numerous stool-filled appearance of small bowel. Appendectomy. Unremarkable soft tissues. No acute fracture. IMPRESSION: 1. Acute interstitial edematous pancreatitis. 2. Stable biliary ductal dilation with a single focus of pneumobilia. Additionally, there is mild pancreatic duct dilation without obstructing stone or lesion identified. 3. Small volume of abdominal pelvic ascites. 4. Absent left kidney. 5. Heterogeneity of the uterine fundus with borderline thickening of the endometrium. Correlation with nonemergent follow-up pelvic ultrasound recommended. 6. Additional findings as above. ACT 112: Negative or not required by law. The above report was generated using voice recognition software. It may contain grammatical, syntax or spelling errors. Electronically signed by: Khanh Baca M.D. 10/15/2022 5:09 PM Chest X-Ray 10/15/22 14:53 XR chest 1V portable HISTORY: 61 years-old Female abd pain acute chest and abdominal pain COMPARISON: 09/15/2020 TECHNIQUE: AP view of the chest FINDINGS: Cardiomediastinal and hilar silhouettes are within normal limits. No pneumothorax, pleural effusion, airspace consolidation or pulmonary edema. Spondylitic spurring of the spine. Bones appear grossly intact. IMPRESSION: No acute process. ACT 112: Negative or not required by law. The above report was generated using voice recognition software. It may contain grammatical, syntax or spelling errors. Electronically signed by: Khanh Baca M.D. 10/15/2022 3:14 PM (1) Acute pancreatitis Acute pancreatitis complication: unspecified Pancreatitis type: alcohol induced Qualified Code(s): K85.20 - Alcohol induced acute pancreatitis without necrosis or infection
[2022-10-16] MEDS: CEFEPIME 2,000 MG in SYRINGE 0 ML IV SCH ×2 (10:09→21:41)
--- NOTE | 2022-10-16 14:06 | Hospitalist Progress Note ---
Date of Service October 16, 2022 Assessment & Plan (1) Acute pancreatitis: (2) Alcohol use disorder: (3) Chronic pain: (4) Junctional cardiac arrhythmia: (5) Dental disorder: (6) GERD (gastroesophageal reflux disease): (7) Mood disorder: (8) Solitary kidney, acquired: Plan Patient is a 59 yr female with H/O Alcohol abuse, Mood disorder, R solitary kidney, HTN, chronic pain on suboxone, GERD admitted with pancreatitis. Acute Alcoholic pancreatitis --CT ABD:Acute interstitial edematous pancreatitis. Stable biliary ductal dilation with a single focus of pneumobilia. Additionally, there is mild pancreatic duct dilation without obstructing stone or lesion identified. Small volume of abdominal pelvic ascites. Absent left kidney. Heterogeneity of the uterine fundus with borderline thickening of the endometrium. Correlation with nonemergent follow-up pelvic ultrasound recommended. -Blood culture pending -Lipase 1618 LFTs normal Continue bowel rest, IV fluids Pain control Empirically on IV antibiotics Counseled to quit alcohol use Appreciate GI input Alcohol Abuse Monitor for alcohol withdrawal Continue gabapentin, Ativan as needed as per protocol Continue thiamine, folic acid Currently not interested in drug rehab placement Chronic pain Continue Suboxone Confirmed dosage on PDMP Dental disease States she is currently prescribed (and taking) prednisone by her dentist for lesions seen in her mouth. Continue prednisone to complete the course Endometrial thickening Incidental finding on CT CT:Heterogeneity of the uterine fundus with borderline thickening of the endometrium. Needs follow-up with PRODUCT ASSURANCE ENGINEER as outpatient Hold Premarin for now Hypertensive urgency Likely situational continue lisinopril and Coreg IV hydralazine as needed GERD Continue PPI Mood disorder Continue BuSpar R solitary kidney Kidney function stable Monitor DVT Px: LOvenox SQ CODE STATUS: Full code Admission and Anticipated Discharge Date Admission Date: October 15, 2022 Subjective Patient is seen and examined at bedside Drowsy this morning during my encounter but still able to answer questions appropriately States having abdominal pain which is better when compared to yesterday Denies any nausea, vomiting, chest pain, dyspnea No signs of alcohol withdrawal currently Review of Systems Review of Systems: All systems reviewed & are unremarkable except as noted in Subjective Physical Exam Physical Exam: Physical Exam: Vitals signs as noted above General Appearance:Moderately built and nourished, no apparent distress Head: normocephalic, Atraumatic Eyes: normal inspection, EOMI Neck: supple, Trachea midline Respiratory/Chest: Normal breath sounds, CTA, No accessory muscle use Cardiovascular: S1, S2, No murmur Abdomen/GI:Soft, Epigastric tender, Bowel sounds present Extremities/Musculoskeletal:normal inspection, no edema Neurologic/Psych:AAOX3, grossly no focal neurological deficits Skin: normal color, warm Results & Data Results & Data Vital Signs (Past 12 Hours) Vital Signs Temp Pulse Pulse Pulse Resp BP BP 10/16/22 11:58 36.7 C 78 18 141/75 H 10/16/22 10:57 114/73 10/16/22 07:43 36.9 C 78 20 194/92 H 191/92 H 10/16/22 07:38 89 10/16/22 02:49 36.8 C 89 16 166/92 H Pulse Ox O2 Del Method 10/16/22 11:58 96 Room Air 10/16/22 10:57 10/16/22 07:43 95 Room Air 10/16/22 07:38 10/16/22 02:49 96 Room Air Laboratory Results Short CBC 10/15/22 10/16/22 Range/Units 15:25 04:41 WBC 14.76 H 13.84 H (4.8-10.8) K/ul Hgb 14.3 14.2 (12.0-16.0) g/dl Hct 40.8 39.7 (37.0-47.0) % Plt Count 312 270 (130-400) K/uL BMP 10/15/22 10/16/22 15:25 04:41 Sodium 132 L 132 L Potassium 3.9 3.7 Chloride 96 L 101 Carbon Dioxide 26 23 BUN 17 11 Creatinine 0.50 L 0.41 L Glucose 129 H 93 Calcium 10.0 8.5 L Liver Function 10/15/22 10/16/22 Range/Units 15:25 04:41 Total Bilirubin 1.0 1.1 H (0.2-1.0) mg/dl AST 33 21 (13-39) U/L ALT 31 21 (7-52) U/L Alkaline Phosphatase 86 69 (34-104) U/L Albumin 3.9 3.2 L (3.4-5.0) gm/dl Urine 10/15/22 Range/Units 17:08 Urine Color Yellow Urine Appearance Clear (Clear) Urine pH 6.5 (4.5-7.5) Ur Specific [place] > 1.045 H (1.000-1.030) Urine Protein Negative (Negative) Urine Glucose (UA) Negative (Negative) (1) Acute pancreatitis Acute pancreatitis complication: unspecified Pancreatitis type: alcohol induced Qualified Code(s): K85.20 - Alcohol induced acute pancreatitis without necrosis or infection
[2022-10-16] MEDS: THIAMINE HCL 100 MG TAB PO SCH (15:24)
[2022-10-16] MEDS: lisinopril 5 MG TAB PO SCH (21:44)
[2022-10-17] MEDS: LORazepam 1 MG TAB PO PRN ×3 (00:04→23:27)
[2022-10-17] MEDS: MoRPHine SULFATE 2 MG/ML CARP IV PRN (00:07)
[2022-10-17] MEDS: SODIUM CHLORIDE 0.9% 1000ML 1,000 ML IV SCH ×3 (02:19→11:14)
[2022-10-17] MEDS ORDERED: Nursing to Pharmacy Communication SCH (04:00)
[2022-10-17] MEDS: GABAPENTIN 600 MG TAB PO SCH ×2 (05:09→13:37)
[2022-10-17] MEDS: metroNIDAZOLE 500 MG/100 ML BAG IV SCH ×2 (05:09→13:36)
[2022-10-17 05:10] LABS: Basophils # (auto) 0.02 K/uL (0-0.2); Basophils % (auto) 0.2 %; Eosinophils # (auto) 0.38 K/uL (0-0.50); Eosinophils % (auto) 3.1 %; Hematocrit (blood only) 33.8 % (37.0-47.0); Hemoglobin 11.9 g/dl (12.0-16.0); Immature Granulocytes # (auto) 0.07 K/uL (0.01-0.20); Immature Granulocytes % (auto) 0.6 %; Lymphocytes # (auto) 2.04 K/uL (1.2-3.4); Lymphocytes % (auto) 16.7 %; Mean Corpuscular Hemoglobin 32.4 pg (25.0-34.0); Mean Corpuscular Hgb Conc 35.2 g/dL (32.0-36.0); Mean Corpuscular Volume 92.1 fL (80.0-100.0); Mean Platelet Volume 9.3 fL (9.4-12.4); Monocytes # (auto) 1.09 K/uL (0.11-0.59); Monocytes % (auto) 8.9 %; Neutrophils # (auto) 8.64 K/uL (1.40-6.50); Neutrophils % (auto) 70.5 %; Platelet Count 208 K/uL (130-400); RDW Coefficient of Variation 12.5 % (11.5-14.5); RDW Standard Deviation 42.4 fL (36.4-46.3); Red Blood Count 3.67 M/uL (4.20-5.40); White Blood Count 12.24 K/ul (4.8-10.8)
[2022-10-17 05:22] LABS: Albumin Level 2.9 gm/dl (3.4-5.0); BUN Creatinine Ratio 20.9 (10-20); Bilirubin,Total 0.9 mg/dl (0.2-1.0); Calcium 8.7 mg/dl (8.6-10.3); Creatinine Clr Calc Pharmacy 110.8 ml/min; Est GFR (African American) 125.5 ml/min; Est GFR (Non-African American) 108.2 ml/min; Globulin 2.8 gm/dl (2.5-4.0); Potassium 3.6 mmol/L (3.5-5.1); Total Protein 5.7 gm/dl (6.0-8.3)
[2022-10-17] MEDS: BUPRENORPHINE/NALOXONE 8/2 MG TAB SL SCH (08:37)
[2022-10-17] MEDS: PANTOprazole 40 MG TAB PO SCH ×2 (08:38→20:25)
[2022-10-17] MEDS: carvediloL 6.25 MG TAB PO SCH ×2 (08:39→20:26)
[2022-10-17] MEDS: busPIRone 5 MG TAB PO SCH ×2 (08:39→20:26)
[2022-10-17] MEDS: FOLIC ACID 1 MG TAB PO SCH (08:40)
[2022-10-17] MEDS: ENOXAPARIN INJ 40 MG/0.4 ML SYR SQ SCH (08:40)
[2022-10-17] MEDS: predniSONE 5 MG TAB PO SCH (08:41)
[2022-10-17] MEDS: SENNA 8.6 MG TAB PO SCH ×2 (08:41→20:26)
[2022-10-17] MEDS: THIAMINE HCL 100 MG TAB PO SCH (08:42)
[2022-10-17] MEDS: CEFEPIME 2,000 MG in SYRINGE 0 ML IV SCH (09:07)
--- NOTE | 2022-10-17 11:17 | Gastroenterology Progress Note ---
Date of Service October 17, 2022 Assessment & Plan (1) Acute pancreatitis: Plan: Patient is a 61 years old female with suspected alcoholic pancreatitis. Symptomatically improved. She does have pancreatic ductal dilatation at 5 mm noted on her CT scan and stable biliary ductal dilatation. Suspected that she may have sphincter of Oddi dysfunction, had ERCP with biliary sphincterotomy in 2020. - Arrange OP EUS in 4 to 6 weeks to eval for possible minor papillatomy given PD dilation increased - FL diet; advance to low fat as tolerated. If tolerating PO, can DC IVF - ETOH cessation advised. She also uses medical marijuana and nicotine lozenges. We had discussed about how these may also contribute to pancreatitis - Symptomatic management otherwise - GI to sign off; pls recall prn Admission and Anticipated Discharge Date Admission Date: October 15, 2022 Supervising Physician Co-Signing Physician Notes 61 yo fm admitted with abdominal pain and found to have alcoholic pancreatitis, clinically improved with conservative mgmt thus far. 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 Presumed etiology of her pancreatitis is alcohol, ? contribution of possible sod (normal lft's) Agree with further plan of care as documented. Subjective Patient reports that she is having less abdominal pain, denies any nausea or vomiting, wants to try some solid foods. She has not had a bowel movement since last but is passing flatus. Review of Systems Review of Systems: All systems reviewed & are unremarkable except as noted in HPI & below Physical Exam Constitutional: WD/WN, vitals as above well groomed, cooperative and comfortable Eyes: PERRL, conjunctivae normal, anicteric sclerae ENMT: external ear and nose normal, oropharynx normal Respiratory: normal respiratory effort, lungs clear to auscultation Cardiovascular: RRR, no murmur, no edema Gastrointestinal (Abdomen): normal bowel sounds, soft, nontender, no hepatosplenomegaly Skin: no rashes, warm and dry no jaundice Psychiatric: A+Ox3, euthymic affect Lymphatic: no lymphedema Results & Data Vital Signs (Past 12 Hours) Vital Signs Temp Pulse Pulse Resp BP Pulse Ox O2 Del Method 10/17/22 08:28 36.9 C 94 H 17 152/82 H 96 Room Air 10/17/22 00:01 99 H 10/17/22 03:03 37.0 C 89 16 174/83 H 97 Room Air 10/16/22 23:56 37.1 C 91 H 22 168/95 H 97 Room Air (1) Acute pancreatitis Acute pancreatitis complication: unspecified Pancreatitis type: alcohol induced Qualified Code(s): K85.20 - Alcohol induced acute pancreatitis without necrosis or infection
--- NOTE | 2022-10-17 17:19 | Hospitalist Progress Note ---
Date of Service October 17, 2022 Assessment & Plan (1) Acute pancreatitis: (2) Alcohol use disorder: (3) Chronic pain: (4) Junctional cardiac arrhythmia: (5) Dental disorder: (6) GERD (gastroesophageal reflux disease): (7) Mood disorder: (8) Solitary kidney, acquired: Plan Patient is a 59 yr female with H/O Alcohol abuse, Mood disorder, R solitary kidney, HTN, chronic pain on suboxone, GERD admitted with pancreatitis. Acute Alcoholic pancreatitis SIRS --CT ABD:Acute interstitial edematous pancreatitis. Stable biliary ductal dilation with a single focus of pneumobilia. Additionally, there is mild pancreatic duct dilation without obstructing stone or lesion identified. Small volume of abdominal pelvic ascites. Absent left kidney. Heterogeneity of the uterine fundus with borderline thickening of the endometrium. Correlation with nonemergent follow-up pelvic ultrasound recommended. -Blood culture: No growth to date -Lipase 1618 LFTs normal Continue IV fluids Pain control Discontinue empiric IV antibiotics Counseled to quit alcohol use Appreciate GI input Needs outpatient endoscopic ultrasound in 4 to 6 weeks Advance diet as tolerated Alcohol Abuse Monitor for alcohol withdrawal Continue gabapentin, Ativan as needed as per protocol Continue thiamine, folic acid Currently not interested in drug rehab placement Chronic pain Continue Suboxone Confirmed dosage on PDMP Dental disease States she is currently prescribed (and taking) prednisone by her dentist for lesions seen in her mouth. Continue prednisone to complete the course Endometrial thickening Incidental finding on CT CT:Heterogeneity of the uterine fundus with borderline thickening of the endometrium. Needs follow-up with ABSTRACTOR as outpatient Hold Premarin for now Hypertensive urgency Likely situational continue lisinopril and Coreg IV hydralazine as needed GERD Continue PPI Mood disorder Continue BuSpar R solitary kidney Kidney function stable Monitor DVT Px: Lovenox SQ CODE STATUS: Full code Admission and Anticipated Discharge Date Admission Date: October 15, 2022 Subjective Patient is seen and examined at bedside States feeling a lot better today Abdominal pain much improved Ambulating in hallways Denies any nausea, vomiting, chest pain, dyspnea Review of Systems Review of Systems: All systems reviewed & are unremarkable except as noted in Subjective Physical Exam Physical Exam: Physical Exam: Vitals signs as noted above General Appearance:Moderately built and nourished, no apparent distress Head: normocephalic, Atraumatic Eyes: normal inspection, EOMI Neck: supple, Trachea midline Respiratory/Chest: Normal breath sounds, CTA, No accessory muscle use Cardiovascular: S1, S2, No murmur Abdomen/GI:Soft, non tender, Bowel sounds present Extremities/Musculoskeletal:normal inspection, no edema Neurologic/Psych:AAOX3, grossly no focal neurological deficits Skin: normal color, warm Results & Data Results & Data Vital Signs (Past 12 Hours) Vital Signs Temp Pulse Pulse Resp BP Pulse Ox O2 Del Method 10/17/22 15:53 37.0 C 92 H 18 144/76 H 96 Room Air 10/17/22 07:00 93 H 10/17/22 11:23 36.8 C 91 H 18 138/85 99 Room Air 10/17/22 08:28 36.9 C 94 H 17 152/82 H 96 Room Air Laboratory Results Short CBC 10/17/22 Range/Units 04:23 WBC 12.24 H (4.8-10.8) K/ul Hgb 11.9 L (12.0-16.0) g/dl Hct 33.8 L (37.0-47.0) % Plt Count 208 (130-400) K/uL BMP 10/17/22 04:23 Sodium 129 L Potassium 3.6 Chloride 99 Carbon Dioxide 23 BUN 9 Creatinine 0.43 L Glucose 75 Calcium 8.7 Liver Function 10/17/22 Range/Units 04:23 Total Bilirubin 0.9 (0.2-1.0) mg/dl AST 16 (13-39) U/L ALT 15 (7-52) U/L Alkaline Phosphatase 62 (34-104) U/L Albumin 2.9 L (3.4-5.0) gm/dl (1) Acute pancreatitis Acute pancreatitis complication: unspecified Pancreatitis type: alcohol induced Qualified Code(s): K85.20 - Alcohol induced acute pancreatitis without necrosis or infection
[2022-10-17] MEDS: lisinopril 5 MG TAB PO SCH (20:25)
--- NOTE | 2022-10-17 21:28 | Electrocardiogram Report ---
Test Reason : Blood Pressure : / mmHG Vent. Rate : 084 BPM Atrial Rate : 066 BPM P-R Int : 000 ms QRS Dur : 068 ms QT Int : 376 ms P-R-T Axes : 000 053 066 degrees QTc Int : 444 ms Sinus rhythm with frequent Premature ventricular complexes Premature atrial complexes Low voltage QRS Septal infarct (cited on or before 15-OCT-2022) Abnormal ECG When compared with ECG of 15-DEC-2019 15:16, Premature ventricular complexes are now Present Confirmed by Kenn Dee ([id number]) on 10/17/2022 9:28:13 PM Referred By: REFERRED SELF Confirmed By:Kenn Dee
--- NOTE | 2022-10-17 22:02 | Electrocardiogram Report ---
Test Reason : Blood Pressure : / mmHG Vent. Rate : 079 BPM Atrial Rate : 079 BPM P-R Int : 160 ms QRS Dur : 088 ms QT Int : 382 ms P-R-T Axes : -04 132 123 degrees QTc Int : 438 ms Normal sinus rhythm Low voltage QRS Left posterior fascicular block Cannot rule out Anteroseptal infarct (cited on or before 15-OCT-2022) Abnormal ECG When compared with ECG of 15-OCT-2022 15:35, Premature ventricular complexes are no longer Present Left posterior fascicular block is now Present Confirmed by Kenn Dee ([id number]) on 10/17/2022 10:02:37 PM Referred By: REFERRED SELF Confirmed By:Kenn Dee
[2022-10-18] MEDS: GABAPENTIN 600 MG TAB PO SCH ×2 (00:33→13:11)
[2022-10-18] MEDS: SODIUM CHLORIDE 0.9% 1000ML 1,000 ML IV SCH (00:34)
[2022-10-18 06:35] LABS: Albumin Globulin Ratio 1.2 (0.9-2); BUN Creatinine Ratio 16.4 (10-20); Basophils # (auto) 0.02 K/uL (0-0.2); Basophils % (auto) 0.2 %; Bilirubin,Total 0.7 mg/dl (0.2-1.0); Calcium 8.7 mg/dl (8.6-10.3); Creatinine Clr Calc Pharmacy 93.7 ml/min; Eosinophils # (auto) 0.38 K/uL (0-0.50); Eosinophils % (auto) 3.8 %; Est GFR (African American) 115.7 ml/min; Est GFR (Non-African American) 99.8 ml/min; Globulin 2.5 gm/dl (2.5-4.0); Hematocrit (blood only) 31.7 % (37.0-47.0); Hemoglobin 10.8 g/dl (12.0-16.0); Immature Granulocytes # (auto) 0.06 K/uL (0.01-0.20); Immature Granulocytes % (auto) 0.6 %; Lymphocytes # (auto) 2.25 K/uL (1.2-3.4); Lymphocytes % (auto) 22.3 %; Mean Corpuscular Hgb Conc 34.1 g/dL (32.0-36.0); Mean Corpuscular Volume 93.8 fL (80.0-100.0); Mean Platelet Volume 9.5 fL (9.4-12.4); Monocytes # (auto) 1.01 K/uL (0.11-0.59); Neutrophils # (auto) 6.37 K/uL (1.40-6.50); Neutrophils % (auto) 63.1 %; Platelet Count 198 K/uL (130-400); Potassium 3.4 mmol/L (3.5-5.1); RDW Coefficient of Variation 12.2 % (11.5-14.5); RDW Standard Deviation 42.1 fL (36.4-46.3); Red Blood Count 3.38 M/uL (4.20-5.40); Total Protein 5.5 gm/dl (6.0-8.3); White Blood Count 10.09 K/ul (4.8-10.8)
[2022-10-18] MEDS: THIAMINE HCL 100 MG TAB PO SCH (08:37)
[2022-10-18] MEDS: SENNA 8.6 MG TAB PO SCH (08:37)
[2022-10-18] MEDS: carvediloL 6.25 MG TAB PO SCH (08:37)
[2022-10-18] MEDS: busPIRone 5 MG TAB PO SCH (08:37)
[2022-10-18] MEDS: PANTOprazole 40 MG TAB PO SCH (08:37)
[2022-10-18] MEDS: ENOXAPARIN INJ 40 MG/0.4 ML SYR SQ SCH (08:38)
[2022-10-18] MEDS: predniSONE 5 MG TAB PO SCH (08:38)
[2022-10-18] MEDS: FOLIC ACID 1 MG TAB PO SCH (08:38)
[2022-10-18] MEDS: BUPRENORPHINE/NALOXONE 8/2 MG TAB SL SCH (08:40)
[2022-10-18] MEDS ORDERED: POTASSIUM CHLORIDE CRTAB 20 MEQ TABCR PO ONE (09:18)
--- NOTE | 2022-10-18 13:02 | Hospitalist Progress Note ---
Date of Service October 18, 2022 Assessment & Plan (1) Acute pancreatitis: (2) Alcohol use disorder: (3) Chronic pain: (4) Junctional cardiac arrhythmia: (5) Dental disorder: (6) GERD (gastroesophageal reflux disease): (7) Mood disorder: (8) Solitary kidney, acquired: Plan Patient is a 59 yr female with H/O Alcohol abuse, Mood disorder, R solitary kidney, HTN, chronic pain on suboxone, GERD admitted with pancreatitis. Acute Alcoholic pancreatitis SIRS --CT ABD:Acute interstitial edematous pancreatitis. Stable biliary ductal dilation with a single focus of pneumobilia. Additionally, there is mild pancreatic duct dilation without obstructing stone or lesion identified. Small volume of abdominal pelvic ascites. Absent left kidney. Heterogeneity of the uterine fundus with borderline thickening of the endometrium. Correlation with nonemergent follow-up pelvic ultrasound recommended. -Blood culture: No growth to date -Lipase 1618 LFTs normal Discontinue IV fluids Pain control Discontinue empiric IV antibiotics Counseled to quit alcohol use Appreciate GI input Needs outpatient endoscopic ultrasound in 4 to 6 weeks Tolerated low-fat diet Advised to follow-up with GI for further work-up as outpatient Plan to discharge home today Alcohol Abuse Monitor for alcohol withdrawal Continue gabapentin, Ativan as needed as per protocol Continue thiamine, folic acid Currently not interested in drug rehab placement Chronic pain Continue Suboxone Confirmed dosage on PDMP Dental disease States she is currently prescribed (and taking) prednisone by her dentist for lesions seen in her mouth. Continue prednisone to complete the course Endometrial thickening Incidental finding on CT CT:Heterogeneity of the uterine fundus with borderline thickening of the endometrium. Needs follow-up with RETAIL ANALYTICS MANAGER as outpatient Hold Premarin for now Hypertensive urgency Likely situational continue lisinopril and Coreg Bp better IV hydralazine as needed GERD Continue PPI Mood disorder Continue BuSpar R solitary kidney Kidney function stable Monitor DVT Px: Lovenox SQ CODE STATUS: Full code Disposition Home Admission and Anticipated Discharge Date Admission Date: October 15, 2022 Subjective Patient is seen and examined at bedside No new complaints Abdominal pain resolved Tolerating diet No signs of alcohol withdrawal Denies any nausea, vomiting, chest pain, dyspnea Not interested in drug rehab Plan to discharge home Review of Systems Review of Systems: All systems reviewed & are unremarkable except as noted in Subjective Physical Exam Physical Exam: Physical Exam: Vitals signs as noted above General Appearance:Moderately built and nourished, no apparent distress Head: normocephalic, Atraumatic Eyes: normal inspection, EOMI Neck: supple, Trachea midline Respiratory/Chest: Normal breath sounds, CTA, No accessory muscle use Cardiovascular: S1, S2, No murmur Abdomen/GI:Soft, non tender, Bowel sounds present Extremities/Musculoskeletal:normal inspection, no edema Neurologic/Psych:AAOX3, grossly no focal neurological deficits Skin: normal color, warm Results & Data Results & Data Vital Signs (Past 12 Hours) Vital Signs Temp Pulse Pulse Resp BP BP Pulse Ox 10/18/22 08:00 85 10/18/22 11:09 36.8 C 75 18 132/81 100 10/18/22 07:30 36.7 C 88 19 148/80 H 99 10/18/22 03:00 36.8 C 88 15 128/73 96 O2 Del Method 10/18/22 08:00 10/18/22 11:09 Room Air 10/18/22 07:30 Room Air 10/18/22 03:00 Room Air Laboratory Results Short CBC 10/18/22 Range/Units 05:42 WBC 10.09 (4.8-10.8) K/ul Hgb 10.8 L (12.0-16.0) g/dl Hct 31.7 L (37.0-47.0) % Plt Count 198 (130-400) K/uL BMP 10/18/22 05:42 Sodium 133 L Potassium 3.4 L Chloride 101 Carbon Dioxide 27 BUN 9 Creatinine 0.55 L Glucose 109 H Calcium 8.7 Liver Function 10/18/22 Range/Units 05:42 Total Bilirubin 0.7 (0.2-1.0) mg/dl AST 14 (13-39) U/L ALT 14 (7-52) U/L Alkaline Phosphatase 55 (34-104) U/L Albumin 3.0 L (3.4-5.0) gm/dl (1) Acute pancreatitis Acute pancreatitis complication: unspecified Pancreatitis type: alcohol induced Qualified Code(s): K85.20 - Alcohol induced acute pancreatitis without necrosis or infection
--- NOTE | 2022-10-18 13:11 | Discharge Summary ---
Date of Service October 18, 2022 Admission HPI Per Admitting Provider 59yoF with PMHx of alcohol abuse, Mood disorder, R solitary kidney, HTN, chronic pain on suboxone, GERD admitted with pancreatitis. She states that she had the acute onset of LUQ pain associated with N/V. She states that she knows she needs to quit drinking but can go for some time without complications. Her last drink was right before leaving to come to the ED, was 5AM before that. States her drink of choice is rum with flavored water. Declines to quantify exactly how much she drinks a week. Not able to tolerate food. Also notes a Hx of chronic pain and states she was recently started on suboxone after she "became tolerant to tramadol". States she is currently in quite a bit of pain and is requesting pain medication. States that this has happened in the past but not recently. Admission Exam Per Admitting Provider Physical Exam Physical Exam: General: Alert, oriented. No acute distress, though pt states she is in a lot of pain Skin: No noted rashes or bruises Psych: Appropriate mood and affect Neuro: No gross deficits HEENT: NC/AT CV: RRR, Normal s1, s2. Resp: Breath sounds clear bilaterally, no increased effort of breathing. Abdomen: tender diffusely Extremities: No edema in lower extremities bilaterally. Principal Diagnosis Acute Alcoholic pancreatitis SIRS Alcohol use disorder Chronic pain syndrome Endometrial thickening Discharge Data Allergies Allergy/AdvReac Type Severity Reaction Status Date / Time ampicillin Allergy Intermediate HIVES Verified 08/30/22 06:08 Penicillins Allergy Unknown Unknown Verified 08/30/22 06:08 Consultations 10/15/22 18:29 Consult Gastroenterology Routine Procedures Performed Laboratory Results WBC 10.09 K/ul (4.8-10.8) 10/18/22 05:42 RBC 3.38 M/uL (4.20-5.40) L 10/18/22 05:42 Hgb 10.8 g/dl (12.0-16.0) L 10/18/22 05:42 Hct 31.7 % (37.0-47.0) L 10/18/22 05:42 MCV 93.8 fL (80.0-100.0) 10/18/22 05:42 MCH 32.0 pg (25.0-34.0) 10/18/22 05:42 MCHC 34.1 g/dL (32.0-36.0) 10/18/22 05:42 RDW Std Deviation 42.1 fL (36.4-46.3) 10/18/22 05:42 RDW Coeff of Evan 12.2 % (11.5-14.5) 10/18/22 05:42 Plt Count 198 K/uL (130-400) 10/18/22 05:42 MPV 9.5 fL (9.4-12.4) 10/18/22 05:42 Immature Gran % (Auto) 0.6 % 10/18/22 05:42 Neut % (Auto) 63.1 % 10/18/22 05:42 Lymph % (Auto) 22.3 % 10/18/22 05:42 [place] % (Auto) 10.0 % 10/18/22 05:42 Eos % (Auto) 3.8 % 10/18/22 05:42 Baso % (Auto) 0.2 % 10/18/22 05:42 Neut # (Auto) 6.37 K/uL (1.40-6.50) 10/18/22 05:42 Lymph # (Auto) 2.25 K/uL (1.2-3.4) 10/18/22 05:42 [place] # (Auto) 1.01 K/uL (0.11-0.59) H 10/18/22 05:42 Eos # (Auto) 0.38 K/uL (0-0.50) 10/18/22 05:42 Baso # (Auto) 0.02 K/uL (0-0.2) 10/18/22 05:42 Immature Gran # (Auto) 0.06 K/uL (0.01-0.20) 10/18/22 05:42 PT 10.7 Seconds (9.0-12.0) 10/16/22 04:41 INR 1.0 (0.9-1.1) 10/16/22 04:41 APTT 26.9 Seconds (21.0-31.0) 10/16/22 04:41 PTT Ratio 1.0 10/16/22 04:41 Sodium 133 mmol/L (136-145) L 10/18/22 05:42 Potassium 3.4 mmol/L (3.5-5.1) L 10/18/22 05:42 Chloride 101 mmol/L (98-107) 10/18/22 05:42 Carbon Dioxide 27 mmol/L (21-32) 10/18/22 05:42 Anion Gap 5 (3-11) 10/18/22 05:42 BUN 9 mg/dl (6-23) 10/18/22 05:42 Creatinine 0.55 mg/dl (0.6-1.2) L 10/18/22 05:42 Est Cr Clr Drug Dosing 93.7 ml/min 10/18/22 05:42 Est GFR ( Amer) 115.7 ml/min 10/18/22 05:42 Est GFR (Non-Af Amer) 99.8 ml/min 10/18/22 05:42 BUN/Creatinine Ratio 16.4 (10-20) 10/18/22 05:42 Glucose 109 mg/dl (70-99(Fasting)) H 10/18/22 05:42 POC Glucose 74 mg/dl (70-99) 10/17/22 05:45 Calcium 8.7 mg/dl (8.6-10.3) 10/18/22 05:42 Total Bilirubin 0.7 mg/dl (0.2-1.0) 10/18/22 05:42 AST 14 U/L (13-39) 10/18/22 05:42 ALT 14 U/L (7-52) 10/18/22 05:42 Alkaline Phosphatase 55 U/L (34-104) 10/18/22 05:42 Troponin I High Sens 7.2 pg/ml (0-14) 10/15/22 15:25 Total Protein 5.5 gm/dl (6.0-8.3) L 10/18/22 05:42 Albumin 3.0 gm/dl (3.4-5.0) L 10/18/22 05:42 Globulin 2.5 gm/dl (2.5-4.0) 10/18/22 05:42 Albumin/Globulin Ratio 1.2 (0.9-2) 10/18/22 05:42 Lipase 388 U/L (11-82) H 10/17/22 04:23 Urine Color Yellow 10/15/22 17:08 Urine Appearance Clear (Clear) 10/15/22 17:08 Urine pH 6.5 (4.5-7.5) 10/15/22 17:08 Ur Specific [place] > 1.045 (1.000-1.030) H 10/15/22 17:08 Urine Protein Negative (Negative) 10/15/22 17:08 Urine Glucose (UA) Negative (Negative) 10/15/22 17:08 Urine Ketones Negative (Negative) 10/15/22 17:08 Urine Blood Negative (Negative) 10/15/22 17:08 Urine Nitrite Negative (Negative) 10/15/22 17:08 Urine Bilirubin Negative (Negative) 10/15/22 17:08 Urine Urobilinogen Negative (Negative) 10/15/22 17:08 Ur Leukocyte Esterase Negative (Negative) 10/15/22 17:08 SARS-CoV-2, RNA, NAAT NEGATIVE (NEGATIVE) 10/15/22 17:20 Impressions Abdomen/Pelvis CT 10/15/22 14:[address] WITH IV CONTRAST CT DOSE: 800.90 mGy.cm HISTORY: Acute upper abdominal pain upper abd pain TECHNIQUE: Multiaxial CT images of the abdomen and pelvis were performed follo wing the IV administration of 82 cc of Optiray, A dose lowering technique was utilized adhering to the principles of ALARA. COMPARISON STUDY: 12/15/2019 FINDINGS: Clear lung bases. No pneumatosis or peritoneal. Unremarkable spleen and adrenal glands. Unremarkable liver. Patency of the hepatic and portal veins. Mildly contracted gallbladder. Intrahepatic connection hepatic biliary duct dilation is noted with the common bile duct measuring up to 1.4 cm. Mild biliary wall thickening with increased enhancement. There is a focus of intrahepatic pneumobilia on image 75 series 3. The degree of biliary ductal dilation appears stable from prior. Mild pancreatic ductal dilation, 5 mm. No shunting lesion or stone identified. There is homogeneous enhancement of the pancreas. Interstitial edema of the pancreatic head uncinate process. Moderate edema with free fluid within the lesser sac descending into the mesentery. Trace pelvic ascites with small amount of free fluid tracking along the pericolic gutters. Absent left kidney with an compensatory upper tree of the right kidney. No urolith or hydronephrosis. Unremarkable urinary bladder. Heterogeneity of the uterine fundus. The endometrium measures in the upper limits of normal at 5 mm. No abdominal aortic aneurysm or lymphadenopathy. No bowel obstruction or bowel wall thickening. Gaseous distention of the transverse colon with mild to m oderate colonic fecal retention. Numerous stool-filled appearance of small bowel. Appendectomy. Unremarkable soft tissues. No acute fracture. IMPRESSION: 1. Acute interstitial edematous pancreatitis. 2. Stable biliary ductal dilation with a single focus of pneumobilia. Additionally, there is mild pancreatic duct dilation without obstructing stone or lesion identified. 3. Small volume of abdominal pelvic ascites. 4. Absent left kidney. 5. Heterogeneity of the uterine fundus with borderline thickening of the endometrium. Correlation with nonemergent follow-up pelvic ultrasound recom mended. 6. Additional findings as above. ACT 112: Negative or not required by law. The above report was generated using voice recognition software. It may contain grammatical, syntax or spelling errors. Electronically signed by: Khanh Baca M.D. 10/15/2022 5:09 PM Chest X-Ray 10/15/22 14:53 XR chest 1V portable HISTORY: 61 years-old Female abd pain acute chest and abdominal pain COMPARISON: 09/15/2020 TECHNIQUE: AP view of the chest FINDINGS: Cardiomediastinal and hilar silhouettes are within normal limits. No pneumothorax, pleural effusion, airspace consolidation or pulmonary edema. Spondylitic spurring of the spine. Bones appear grossly intact. IMPRESSION: No acute process. ACT 112: Negative or not required by law. The above report was generated using voice recognition software. It may contain grammatical, syntax or spelling errors. Electronically signed by: Khanh Baca M.D. 10/15/2022 3:14 PM Ordered Studies 10/15/22 14:53 CT abd pelvis IV con only Stat Hospital Course (1) Acute pancreatitis: (2) Alcohol use disorder: (3) Chronic pain: (4) Junctional cardiac arrhythmia: (5) Dental disorder: (6) GERD (gastroesophageal reflux disease): (7) Mood disorder: (8) Solitary kidney, acquired: Plan Patient is a 59 yr female with H/O Alcohol abuse, Mood disorder, R solitary kidney, HTN, chronic pain on suboxone, GERD admitted with pancreatitis. Acute Alcoholic pancreatitis SIRS --CT ABD:Acute interstitial edematous pancreatitis. Stable biliary ductal dilation with a single focus of pneumobilia. Additionally, there is mild pancreatic duct dilation without obstructing stone or lesion identified. Small volume of abdominal pelvic ascites. Absent left kidney. Heterogeneity of the uterine fundus with borderline thickening of the endometrium. Correlation with nonemergent follow-up pelvic ultrasound recommended. -Blood culture: No growth to date -Lipase 1618 LFTs normal Discontinue IV fluids Pain control Discontinue empiric IV antibiotics Counseled to quit alcohol use Appreciate GI input Needs outpatient endoscopic ultrasound in 4 to 6 weeks Tolerated low-fat diet Advised to follow-up with GI for further work-up as outpatient Plan to discharge home today Alcohol Abuse Monitor for alcohol withdrawal Continue gabapentin, Ativan as needed as per protocol Continue thiamine, folic acid Currently not interested in drug rehab placement Chronic pain Continue Suboxone Confirmed dosage on PDMP Dental disease States she is currently prescribed (and taking) prednisone by her dentist for lesions seen in her mouth. Continue prednisone to complete the course Endometrial thickening Incidental finding on CT CT:Heterogeneity of the uterine fundus with borderline thickening of the endometrium. Needs follow-up with [facility] [employer] as outpatient Hold Premarin for now Hypertensive urgency Likely situational continue lisinopril and Coreg Bp better IV hydralazine as needed GERD Continue PPI Mood disorder Continue BuSpar R solitary kidney Kidney function stable Monitor DVT Px: Lovenox SQ CODE STATUS: Full code Disposition Home Total Time Total Time Spent Total Time Spent (In Minutes): 56 minutes Discharge Plan Discharge Items Patient Disposition: Home - Self-Care Reason For Visit: PANCREATITIS Discharge Diagnosis: Acute Alcoholic pancreatitis SIRS Alcohol use disorder Chronic pain syndrome Endometrial thickening Activity: Per Instructions section Exercise/Sports: Gradually increase as tolerated Non-emergency contact: Primary Care Provider, [employer] Call non-emergency contact if: you have any medication questions, your symptoms worsen, your pain is concerning for you and you have a fever Follow-up/Referrals: Piedad Chris MD [Primary Care Provider] - (Date & Time 10/26/2022 11:00 AM Provider Piedad Chris MD Department General Internal Medicine [facility] ) Amanda Tomas CRNP [Nurse Practitioner] - (The GI office will call you with an appointment for follow up.) Diet: Heart Healthy Addtl Attending Provider Instructions: Follow-up with your primary care physician on 10/26/2022 11:00 AM Follow-up with your wellness instructor Amanda Carlos in 4-6 weeks for endoscopic ultrasound as outpatient. Follow-up with your [facility] physician for further evaluation of endometrial thickening which was incidentally noted on CT scan. --- Hold Premarin until further recommendations by your [facility]/PCP. --Quit drinking Alcohol as advised Seek immediate medical attention if your symptoms reoccur or worsen Please take all medications as instructed on discharge list below. Please call if you have any questions or problems. You can reach a [facility] hospitalist on duty at [facility] 24 hours a day by calling [phone] Pending Studies at Discharge: No Stand-Alone Forms: My [facility], Smoking Cessation Medications and DC Order Prescriptions: New thiamine HCl (vitamin B1) 100 mg Tablet 100 mg PO QAM Qty: 30 0RF folic acid 1 mg Tablet 1 mg PO QAM Qty: 30 0RF Continued carvedilol [Coreg] 6.25 mg tablet 6.25 mg PO BID lisinopril 5 mg tablet 5 mg PO PM ipratropium bromide 0.03 % spray,non-aerosol 2 spray INTRANASAL TID PRN (Reason: Nasal Congestion) buprenorphine-naloxone 8-2 mg tablet, sublingual 1 tab SUBLINGUAL QAM meloxicam 7.5 mg tablet 7.5 mg PO DAILY PRN (Reason: Pain) multivitamin Tablet 1 tab PO HS thiamine HCl (vitamin B1) 100 mg tablet 100 mg PO QAM folic acid 1 mg tablet 1 mg PO QAM turmeric root extract 500 mg Tablet 500 mg PO BID buspirone 10 mg Tablet 10 mg PO BID sennosides [senna] 8.6 mg Tablet 8.6 mg PO BID prednisone 5 mg tablet See Rx Instructions .ROUTE .COMPLEX Rx Instructions: take 4 tabs daily x 7 days,3 tabs x 7 days,2 tabs x 7 days, then 1 tab daily x 7 days until finished...ordered 10/05/22 omeprazole 20 mg capsule,delayed release(DR/EC) 20 mg PO AMPM Held Premarin 0.625 mg/gram Cream 0.625 mg VAGINAL UD Hold Instructions: To Be Determined by PCP/OBGYN Rx Instructions: off 5 days; repeat cycle Discharge Orders: Discharge Order (Routine); Ordered 10/18/22 Ordered By: Angel Epps Admission Data Admit Date/Time: 10/15/22 18:30 Attending Provider: Angel Epps Admit Provider: Liliana Llanos Primary Care Provider: Piedad Chris Other Providers: Hasmukh Mcintosh Jr
[2022-10-19] MEDS ORDERED: GABAPENTIN 600 MG TAB PO SCH (12:00)
== END 2022-10-18 15:01 | disposition home or self-care (01) | DRG 439 ==
LOC: ED 14:43 → 4W 18:30 → SUATTDRO 18:30 → 4W 20:33

== ENCOUNTER 2022-12-24 16:18 | Inpatient (IN) ==
[2022-12-24] MEDS ORDERED: LORazepam 2 MG/1 ML VIAL IV STA ×2 (16:44→19:58)
[2022-12-24] MEDS ORDERED: ONDANSETRON INJ 2 MG/ML 2 ML VIAL IV STA (16:44)
[2022-12-24] MEDS ORDERED: SODIUM CHLORIDE 0.9% 1000ML 1,000 ML IV SCH (16:45)
--- NOTE | 2022-12-24 16:48 | Emergency Department Note ---
Impression & Plan Opioid withdrawal, Alcohol withdrawal ED Provider Note Provider: Nahid Vieyra MD DATE OF SERVICE: 12/24/2022 CHIEF COMPLAINT: Weak, vomiting, diarrhea HISTORY OF PRESENT ILLNESS: Patient is a 62-year-old female history of hypertension, mood disorder, GERD, pancreatitis, chronic alcohol and opioid abuse recently on Suboxone but received injection of Vivitrol. Has not had alcohol and Suboxone in 3 days by family report. Evidently since yesterday has been having consistent vomiting and diarrhea as well as weakness and hard time walking. No falls. No hallucinations. No history of seizure or hallucinations in the past. Was drinking alcohol until about 3 days ago or so and only tapered over a couple of days. Feels restless. Denies significant focal pain just general malaise and unwellness. Denies significant chest pain. Denies significant shortness of breath. PAST MEDICAL HISTORY: As noted above MEDICATIONS: Reviewed home medications SOCIAL HISTORY: History of alcohol abuse PHYSICAL EXAM: GENERAL: alert and oriented in no acute distress on stretcher Head: normocephalic and atraumatic EYES: No injection, discharge or icterus. PERRL NECK: Trachea midline. ENT: Mucous membranes pink and slightly dry LUNGS: Airway patent. No retractions. Breath sounds clear with good air entry bilaterally. HEART: Regular rate and rhythm. No chest wall tenderness ABDOMEN: Soft and non-tender, without guarding or rebound. SKIN: Acyanotic, warm, dry, without rashes EXTREMITIES: Without swelling, tenderness or deformity NEUROLOGICAL: No focal deficits. No aphasia. No facial droop or slurred speech. Normal strength and tone in the extremities. Sensation to gross touch normal. EK bpm sinus rhythm with PVC. No acute ST segment elevation or depression with a QTc of 447. Evidence of old anterior septal infarct noted. CONTINUOUS CARDIAC MONITORING: was ordered and showed a heart rate of 70s-80s bpm in normal sinus rhythm occasional PVC Patient's laboratory studies and imaging reviewed. Differential includes Infection, dehydration, metabolic abnormality, hypo/hyperglycemia, electrolyte disturbance, anemia, hypoxia, cardiac sources, neurologic, as well as other pathologies. IMPRESSION/MEDICAL DECISION MAKING: Patient denies any history of alcohol withdrawal. Just received 48 hours ago dose of Vivitrol. Alcohol use last earlier this week. Weak and restless with vomiting and diarrhea consistent like withdrawal from both alcohol and opioids more significantly. Denies significant abdominal pain and not that tender. Doubt acute intra-abdominal pathology such as perforation, diverticulitis, or appendicitis. Doubt biliary pathology. Basic labs were obtained and given some fluid hydration to help with symptoms and IV Zofran. Given a bit of Ativan as well. Not having hallucinations. While some component of the alcohol withdrawal seems more opioid mediated. Electrolytes again and basic blood work obtained. Lipase sent given history of pancreatitis but she states she is not having significant pain like she did in October with this. No feeling need a CT abdomen pelvis at this point. Not having focal deficits or significant headache or evidence of head trauma/history of this and doubt acute intracranial bleed or CVA. Blood work without anemia or thrombocytopenia. Slight leukocytosis believe likely more reactive to the situation than truly infectious. Negative COVID testing. Mild hypokalemia 3.2. No severe electrolyte abnormalities. Normal creatinine. No signs of transaminitis or pancreatitis significantly at this time. Negative alcohol. Negative troponin and doubt ACS. Patient given some additional fluid and Ativan here to help with the restlessness and did rest some. Discussed with her results and option of possible staying for observation given her symptoms versus a trial of care at home. Discussed with the patient's via phone. In shared decision-making she went to stay for further treatment of her withdrawal symptoms. DIAGNOSIS: Alcohol and opioid withdrawal, vomiting and diarrhea DISPOSITION: Hospitalist will evaluate Patient was agreeable with this plan. Past Med/Surg History Medical History Alcohol dependence Anemia Cardiomyopathy Hearing deficit History of COVID-19 05/2020--mild symptoms, no symptoms now Hypertension Major depressive disorder Osteoarthritis Solitary kidney Surgical History History of appendectomy History of cardiac cath 09/06/12 @ [facility]--no stents, had cardiomyopathy History of section History of ERCP History of mandibular surgery History of right cataract surgery History of shoulder surgery left History of tooth extraction Family History Other No family history of adverse response to anesthesia Social History Smoking Status: Never smoker Second Hand Exposure: No; Do You Dip or Chew Tobacco: No; Hx Alcohol Use: Yes Alcohol type: hard liquor Hx Substance Use: Yes Last Used Substance: Days (ago) Substance Use Type Other:: Quit 1982 Preferred Language: Belarusian Communication Ability: Effective Agency Service Coordinator Required: No Beliefs That Will Affect Care: None Current Living Situation: Spouse Current Living Situation Comment: Lives with and son Feels Safe at Home: Yes Assistive Devices: None Allergies Allergies Allergy/AdvReac Type Severity Reaction Status Date / Time ampicillin Allergy Intermediate HIVES Verified 12/24/22 17:52 Penicillins Allergy Unknown Unknown Verified 12/24/22 17:52 Home Meds Home Medications Medication Instructions Recorded Confirmed buprenorphine 8 mg-naloxone 2 mg 1 tab sublingual QAM 12/15/19 12/24/22 sublingual tablet carvedilol 6.25 mg tablet (Coreg) 6.25 mg PO BID 12/15/19 12/24/22 ipratropium bromide 21 mcg (0.03 2 spray intranasal TID PRN Nasal 12/15/19 12/24/22 %) nasal spray Congestion lisinopril 5 mg tablet 5 mg PO PM 12/15/19 12/24/22 meloxicam 7.5 mg tablet 7.5 mg PO DAILY PRN Pain 09/15/20 12/24/22 folic acid 1 mg tablet 1 mg PO QAM 07/29/22 12/24/22 multivitamin 1 tab PO HS 07/29/22 12/24/22 sennosides 8.6 mg tablet (senna) 8.6 mg PO BID 07/29/22 12/24/22 thiamine HCl (vitamin B1) 100 mg 100 mg PO QAM 07/29/22 12/24/22 tablet turmeric root extract 500 mg tablet 500 mg PO BID 07/29/22 12/24/22 omeprazole 20 mg capsule,delayed 20 mg PO AMPM 10/15/22 12/24/22 release trazodone 50 mg tablet 50 mg PO HS 12/24/22 12/24/22 Results & Data (ED) Vital Signs Vital Signs - 24 hr 12/24/22 16:22 12/24/22 17:19 12/24/22 17:39 Temperature 36.7 C Temperature Source Temporal Artery Scan Pulse Rate 110 H 85 Pulse Rate [Bilateral] 84 Respiratory Rate 18 26 H Respiratory Effort / Characteristics Non-Labored Blood Pressure 149/83 H Blood Pressure [Right Arm] 136/89 Blood Pressure Mean 105 Blood Pressure Mean [Right Arm] 104 Pulse Oximetry 99 92 Oxygen Delivery Method Room Air Room Air Sepsis Recent Fever Within 48 Hours No Sepsis New/Unexplained Change in Mental Status No Sepsis Action Taken by Nursing No Action Required 12/24/22 17:41 12/24/22 18:30 12/24/22 18:30 Temperature Temperature Source Pulse Rate 65 Pulse Rate [Bilateral] 79 Respiratory Rate 24 25 H Respiratory Effort / Characteristics Blood Pressure 170/99 H Blood Pressure [Right Arm] 170/99 H Blood Pressure Mean 122 Blood Pressure Mean [Right Arm] 122 Pulse Oximetry 94 95 96 Oxygen Delivery Method Room Air Room Air Sepsis Recent Fever Within 48 Hours Sepsis New/Unexplained Change in Mental Status Sepsis Action Taken by Nursing 12/24/22 19:00 12/24/22 20:00 12/24/22 21:11 Temperature Temperature Source Pulse Rate 95 H 78 69 Pulse Rate [Bilateral] Respiratory Rate 20 20 Respiratory Effort / Characteristics Blood Pressure 150/97 H 152/91 H Blood Pressure [Right Arm] Blood Pressure Mean 114 98 Blood Pressure Mean [Right Arm] Pulse Oximetry 96 96 Oxygen Delivery Method Room Air Room Air Sepsis Recent Fever Within 48 Hours Sepsis New/Unexplained Change in Mental Status Sepsis Action Taken by Nursing Laboratory Data 12/24/22 17:00 12/24/22 17:00 Lab Results 12/24/22 12/24/22 12/24/22 Range/Units 17:00 17:00 17:00 WBC 12.10 H (4.8-10.8) K/ul RBC 4.93 (4.20-5.40) M/uL Hgb 15.7 (12.0-16.0) g/dl Hct 44.1 (37.0-47.0) % MCV 89.5 (80.0-100.0) fL MCH 31.8 (25.0-34.0) pg MCHC 35.6 (32.0-36.0) g/dL RDW Std Deviation 38.3 (36.4-46.3) fL RDW Coeff of Evan 11.8 (11.5-14.5) % Plt Count 317 (130-400) K/uL MPV 10.8 (9.4-12.4) fL Immature Gran % (Auto) 0.3 % Neut % (Auto) 83.2 % Lymph % (Auto) 11.2 % [place] % (Auto) 5.1 % Eos % (Auto) 0.1 % Baso % (Auto) 0.1 % Neut # (Auto) 10.07 H (1.40-6.50) K/uL Lymph # (Auto) 1.35 (1.2-3.4) K/uL [place] # (Auto) 0.62 H (0.11-0.59) K/uL Eos # (Auto) 0.01 (0-0.50) K/uL Baso # (Auto) 0.01 (0-0.2) K/uL Immature Gran # (Auto) 0.04 (0.01-0.20) K/uL Sodium 138 (136-145) mmol/L Potassium 3.2 L (3.5-5.1) mmol/L Chloride 102 (98-107) mmol/L Carbon Dioxide 24 (21-32) mmol/L Anion Gap 12 H (3-11) BUN 14 (6-23) mg/dl Creatinine 0.60 (0.6-1.2) mg/dl Est Cr Clr Drug Dosing 78.4 ml/min Est GFR ( Amer) 111.6 ml/min Est GFR (Non-Af Amer) 96.3 ml/min BUN/Creatinine Ratio 23.3 H (10-20) Glucose 106 H (70-99(Fasting)) mg/dl Calcium 10.8 H (8.6-10.3) mg/dl Magnesium 1.9 (1.7-2.4) mg/dl Total Bilirubin 0.9 (0.2-1.0) mg/dl AST 23 (13-39) U/L ALT 19 (7-52) U/L Alkaline Phosphatase 57 (34-104) U/L Troponin I High Sens 8.3 (0-14) pg/ml Total Protein 7.7 (6.0-8.3) gm/dl Albumin 4.4 (3.4-5.0) gm/dl Globulin 3.3 (2.5-4.0) gm/dl Albumin/Globulin Ratio 1.3 (0.9-2) Lipase 93 H (11-82) U/L TSH 0.687 (0.300-4.500) uIu/ml Ethyl Alcohol mg/dL (<10.0) mg/dl SARS-CoV-2, RNA, NAAT (NEGATIVE) 12/24/22 12/24/22 Range/Units 17:00 17:00 WBC (4.8-10.8) K/ul RBC (4.20-5.40) M/uL Hgb (12.0-16.0) g/dl Hct (37.0-47.0) % MCV (80.0-100.0) fL MCH (25.0-34.0) pg MCHC (32.0-36.0) g/dL RDW Std Deviation (36.4-46.3) fL RDW Coeff of Evan (11.5-14.5) % Plt Count (130-400) K/uL MPV (9.4-12.4) fL Immature Gran % (Auto) % Neut % (Auto) % Lymph % (Auto) % [place] % (Auto) % Eos % (Auto) % Baso % (Auto) % Neut # (Auto) (1.40-6.50) K/uL Lymph # (Auto) (1.2-3.4) K/uL [place] # (Auto) (0.11-0.59) K/uL Eos # (Auto) (0-0.50) K/uL Baso # (Auto) (0-0.2) K/uL Immature Gran # (Auto) (0.01-0.20) K/uL Sodium (136-145) mmol/L Potassium (3.5-5.1) mmol/L Chloride (98-107) mmol/L Carbon Dioxide (21-32) mmol/L Anion Gap (3-11) BUN (6-23) mg/dl Creatinine (0.6-1.2) mg/dl Est Cr Clr Drug Dosing ml/min Est GFR ( Amer) ml/min Est GFR (Non-Af Amer) ml/min BUN/Creatinine Ratio (10-20) Glucose (70-99(Fasting)) mg/dl Calcium (8.6-10.3) mg/dl Magnesium (1.7-2.4) mg/dl Total Bilirubin (0.2-1.0) mg/dl AST (13-39) U/L ALT (7-52) U/L Alkaline Phosphatase (34-104) U/L Troponin I High Sens (0-14) pg/ml Total Protein (6.0-8.3) gm/dl Albumin (3.4-5.0) gm/dl Globulin (2.5-4.0) gm/dl Albumin/Globulin Ratio (0.9-2) Lipase (11-82) U/L TSH (0.300-4.500) uIu/ml Ethyl Alcohol mg/dL < 10.0 (<10.0) mg/dl SARS-CoV-2, RNA, NAAT NEGATIVE (NEGATIVE) Administered Medications Discontinued Medications Sodium Chloride (Nss 1000ml) 1,000 mls @ 999 mls/hr IV .Q1H1M SANJUANA Stop: 12/24/22 17:45 Last Infusion: 12/24/22 18:22 Dose: 0 mls/hr Documented By: Admin: 12/24/22 17:17 Dose: 999 mls/hr Documented By: DALY Lactated Ringer's (Lr) 1,000 mls @ 999 mls/hr IV .Q1H1M ONE Stop: 12/24/22 20:58 Last Admin: 12/24/22 20:21 Dose: 999 mls/hr Documented By: KATHERINE Lorazepam (Lorazepam 2 Mg/1 Ml Vial) 0.5 mg IV NOW STA Stop: 12/24/22 16:45 Last Admin: 12/24/22 17:27 Dose: 0.5 mg Documented By: DALY Lorazepam (Lorazepam 2 Mg/1 Ml Vial) 1 mg IV NOW STA Stop: 12/24/22 19:59 Last Admin: 12/24/22 20:21 Dose: 1 mg Documented By: KATHERINE Ondansetron HCl (Ondansetron Inj 2 Mg/Ml 2 Ml Vial) 4 mg IV NOW STA Stop: 12/24/22 16:45 Last Admin: 12/24/22 17:27 Dose: 4 mg Documented By: DALY Discharge Plan Visit Data Chief Complaint: Detox Request Stated Complaint: OPIOD DETOX ED Provider: Nahid Vieyra Discharge Problem: Opioid withdrawal, Alcohol withdrawal Patient Disposition: Being Evaluated by Hospitalist Forms Stand Alone Forms: [facility], Suicide Prevention Resources Prescriptions Prescriptions: No Action carvedilol [Coreg] 6.25 mg tablet 6.25 mg PO BID lisinopril 5 mg tablet 5 mg PO PM ipratropium bromide 0.03 % spray,non-aerosol 2 spray INTRANASAL TID PRN (Reason: Nasal Congestion) buprenorphine-naloxone 8-2 mg tablet, sublingual 1 tab SUBLINGUAL QAM meloxicam 7.5 mg tablet 7.5 mg PO DAILY PRN (Reason: Pain) multivitamin Tablet 1 tab PO HS thiamine HCl (vitamin B1) 100 mg tablet 100 mg PO QAM folic acid 1 mg tablet 1 mg PO QAM turmeric root extract 500 mg Tablet 500 mg PO BID sennosides [senna] 8.6 mg Tablet 8.6 mg PO BID omeprazole 20 mg capsule,delayed release(DR/EC) 20 mg PO AMPM trazodone 50 mg tablet 50 mg PO HS Referrals Referrals: Piedad Chris MD [Primary Care Provider] -
[2022-12-24 17:59] LABS: Basophils # (auto) 0.01 K/uL (0-0.2); Basophils % (auto) 0.1 %; Eosinophils # (auto) 0.01 K/uL (0-0.50); Eosinophils % (auto) 0.1 %; Hematocrit (blood only) 44.1 % (37.0-47.0); Hemoglobin 15.7 g/dl (12.0-16.0); Immature Granulocytes # (auto) 0.04 K/uL (0.01-0.20); Immature Granulocytes % (auto) 0.3 %; Lymphocytes # (auto) 1.35 K/uL (1.2-3.4); Lymphocytes % (auto) 11.2 %; Mean Corpuscular Hemoglobin 31.8 pg (25.0-34.0); Mean Corpuscular Hgb Conc 35.6 g/dL (32.0-36.0); Mean Corpuscular Volume 89.5 fL (80.0-100.0); Mean Platelet Volume 10.8 fL (9.4-12.4); Monocytes # (auto) 0.62 K/uL (0.11-0.59); Monocytes % (auto) 5.1 %; Neutrophils # (auto) 10.07 K/uL (1.40-6.50); Neutrophils % (auto) 83.2 %; Platelet Count 317 K/uL (130-400); RDW Coefficient of Variation 11.8 % (11.5-14.5); RDW Standard Deviation 38.3 fL (36.4-46.3); Red Blood Count 4.93 M/uL (4.20-5.40)
[2022-12-24 18:13] LABS: Albumin Level 4.4 gm/dl (3.4-5.0); Bilirubin,Total 0.9 mg/dl (0.2-1.0); Calcium 10.8 mg/dl (8.6-10.3); Magnesium 1.9 mg/dl (1.7-2.4); Potassium 3.2 mmol/L (3.5-5.1)
[2022-12-24 18:19] LABS: Albumin Globulin Ratio 1.3 (0.9-2); BUN Creatinine Ratio 23.3 (10-20); Creatinine Clr Calc Pharmacy 78.4 ml/min; Est GFR (African American) 111.6 ml/min; Est GFR (Non-African American) 96.3 ml/min; Globulin 3.3 gm/dl (2.5-4.0); Total Protein 7.7 gm/dl (6.0-8.3)
[2022-12-24 18:24] LABS: Troponin I High Sensitivity 8.3 pg/ml (0-14)
[2022-12-24] MEDS ORDERED: LACTATED RINGER'S 1,000 ML IV ONE ×2 (19:58→22:09)
[2022-12-24] MEDS ORDERED: POTASSIUM CHLORIDE / WTR 10 MEQ/100 ML PLCT IV ONE (22:01)
[2022-12-24] MEDS ORDERED: THIAMINE HCL 100 MG in SYRINGE 9 ML IV STA (22:23)
[2022-12-24] MEDS ORDERED: MAGNESIUM SULFATE / D5W 1 GM/100 ML BAG IV ONE (22:30)
[2022-12-24] MEDS ORDERED: POTASSIUM CHLORIDE PWD 20 MEQ PACK PO STA (22:34)
[2022-12-24] MEDS ORDERED: carvediloL 6.25 MG TAB PO STA (23:23)
--- NOTE | 2022-12-24 23:24 | History & Physical Report ---
Date of Service December 24, 2022 Assessment & Plan (1) Alcohol withdrawal: Plan: hx nonischemic cardiomyopathy (EF 55%, TTE 2021), patient on the dry side hypertension, elevated secondary to illness anxiety/mood disorder, at baseline Diarrhea symptoms possibly from opioid withdrawal precipitated by outpatient naltrexone injection rule out infectious causes Hypokalemia secondary to emesis/diarrhea hx opiate abuse on Suboxone Medical telemetry GABRIELA S, DT precautions Stool CS, C. difficile Replace electrolytes DVT prophylaxis. Lovenox subcu Full code Text document was generated using [employer] voice recognition software. It may contain grammatical or spelling errors. Kindly contact undersigned for clarification of any documentation item in question. History of Present Illness Chief Complaint: Weakness, vomiting, diarrhea Primary Care Provider: Piedad Chris MD History obtained from patient and records. Medical history significant for nonischemic cardiomyopathy (EF 55%, TTE 2021), hypertension, anxiety/mood disorder, opiate abuse on Suboxone, alcohol abuse, solitary kidney. Last confinement October 2022 for alcoholic pancreatitis. Patient received outpatient injection of Naltrexone from water treatment specialist for alcohol abuse few days ago. Last EtOH intake was 3 days ago. Shortly after, patient noted vomiting, watery diarrhea symptoms, generalized weakness. Denies headache, chest pain, SOB, unusual belly pain. Patient consulted ER for worsening symptoms. Medical History as above Surgical History : section, appendectomy Family History : Heart disease, stroke, lung cancer Personal/Social history : Non-smoker, alcohol abuse, grocery employee Allergies Allergy/AdvReac Type Severity Reaction Status Date / Time ampicillin Allergy Intermediate HIVES Verified 12/24/22 17:52 Penicillins Allergy Unknown Unknown Verified 12/24/22 17:52 Home Medications Medication Instructions Recorded Confirmed Type buprenorphine 8 mg-naloxone 2 mg 1 tab sublingual QAM 12/15/19 12/24/22 History sublingual tablet carvedilol 6.25 mg tablet (Coreg) 6.25 mg PO BID 12/15/19 12/24/22 History ipratropium bromide 21 mcg (0.03 2 spray intranasal TID PRN Nasal 12/15/19 12/24/22 History %) nasal spray Congestion lisinopril 5 mg tablet 5 mg PO PM 12/15/19 12/24/22 History meloxicam 7.5 mg tablet 7.5 mg PO DAILY PRN Pain 09/15/20 12/24/22 History folic acid 1 mg tablet 1 mg PO QAM 07/29/22 12/24/22 History multivitamin 1 tab PO HS 07/29/22 12/24/22 History sennosides 8.6 mg tablet (senna) 8.6 mg PO BID 07/29/22 12/24/22 History thiamine HCl (vitamin B1) 100 mg 100 mg PO QAM 07/29/22 12/24/22 History tablet turmeric root extract 500 mg tablet 500 mg PO BID 07/29/22 12/24/22 History omeprazole 20 mg capsule,delayed 20 mg PO AMPM 10/15/22 12/24/22 History release trazodone 50 mg tablet 50 mg PO HS 12/24/22 12/24/22 History Past Med/Surg History Medical History Alcohol dependence Anemia Cardiomyopathy Hearing deficit History of COVID-19 05/2020--mild symptoms, no symptoms now Hypertension Major depressive disorder Osteoarthritis Solitary kidney Surgical History History of appendectomy History of cardiac cath 09/06/12 @ [facility]--no stents, had cardiomyopathy History of section History of ERCP History of mandibular surgery History of right cataract surgery History of shoulder surgery left History of tooth extraction Family History Other No family history of adverse response to anesthesia Social History Smoking Status: Never smoker Second Hand Exposure: No; Do You Dip or Chew Tobacco: No; Hx Alcohol Use: Yes Alcohol type: hard liquor Hx Substance Use: Yes Last Used Substance: Days (ago) Substance Use Type Other:: Quit 1982 Preferred Language: Gibraltarian Communication Ability: Effective Sedimentationist Required: No Beliefs That Will Affect Care: None Current Living Situation: Spouse Current Living Situation Comment: Lives with and son Feels Safe at Home: Yes Assistive Devices: None Review of Systems Review of Systems: As per HPI, all other systems reviewed and negative Physical Exam Physical Exam: GENERAL: Comfortable, pleasant, tremulous, no respiratory distress SKIN: Normal color, warm HEENT: [place] palpebral conjunctivae, no ptosis, dry buccal mucosa NECK : Supple, no tenderness CHEST : CTA, no tenderness HEART : RRR, no obvious murmurs ABDOMEN: Some distention, nontender EXTREMITIES : No LE swelling/tenderness, no other conspicuous deformities noted NEUROLOGIC : Coherent, no facial asymmetry, tremulous, no other gross focality Results & Data Results & Data Vital Signs (Past 12 Hours) Vital Signs Temp Pulse Pulse Resp BP BP Pulse Ox 12/24/22 21:11 69 12/24/22 20:00 78 20 152/91 H 96 12/24/22 19:00 95 H 20 150/97 H 96 12/24/22 18:30 65 25 H 170/99 H 96 12/24/22 18:30 79 24 170/99 H 95 12/24/22 17:41 94 12/24/22 17:39 84 26 H 136/89 92 12/24/22 17:19 85 12/24/22 16:22 36.7 C 110 H 18 149/83 H 99 O2 Del Method 12/24/22 21:11 12/24/22 20:00 Room Air 12/24/22 19:00 Room Air 12/24/22 18:30 Room Air 12/24/22 18:30 12/24/22 17:41 Room Air 12/24/22 17:39 Room Air 12/24/22 17:19 12/24/22 16:22 Room Air Laboratory Results Laboratory Results WBC 12.10 K/ul (4.8-10.8) H 12/24/22 17:00 RBC 4.93 M/uL (4.20-5.40) 12/24/22 17:00 Hgb 15.7 g/dl (12.0-16.0) 12/24/22 17:00 Hct 44.1 % (37.0-47.0) 12/24/22 17:00 MCV 89.5 fL (80.0-100.0) 12/24/22 17:00 MCH 31.8 pg (25.0-34.0) 12/24/22 17:00 MCHC 35.6 g/dL (32.0-36.0) 12/24/22 17:00 RDW Std Deviation 38.3 fL (36.4-46.3) 12/24/22 17:00 RDW Coeff of Evan 11.8 % (11.5-14.5) 12/24/22 17:00 Plt Count 317 K/uL (130-400) 12/24/22 17:00 MPV 10.8 fL (9.4-12.4) 12/24/22 17:00 Immature Gran % (Auto) 0.3 % 12/24/22 17:00 Neut % (Auto) 83.2 % 12/24/22 17:00 Lymph % (Auto) 11.2 % 12/24/22 17:00 [place] % (Auto) 5.1 % 12/24/22 17:00 Eos % (Auto) 0.1 % 12/24/22 17:00 Baso % (Auto) 0.1 % 12/24/22 17:00 Neut # (Auto) 10.07 K/uL (1.40-6.50) H 12/24/22 17:00 Lymph # (Auto) 1.35 K/uL (1.2-3.4) 12/24/22 17:00 [place] # (Auto) 0.62 K/uL (0.11-0.59) H 12/24/22 17:00 Eos # (Auto) 0.01 K/uL (0-0.50) 12/24/22 17:00 Baso # (Auto) 0.01 K/uL (0-0.2) 12/24/22 17:00 Immature Gran # (Auto) 0.04 K/uL (0.01-0.20) 12/24/22 17:00 Sodium 138 mmol/L (136-145) 12/24/22 17:00 Potassium 3.2 mmol/L (3.5-5.1) L 12/24/22 17:00 Chloride 102 mmol/L (98-107) 12/24/22 17:00 Carbon Dioxide 24 mmol/L (21-32) 12/24/22 17:00 Anion Gap 12 (3-11) H 12/24/22 17:00 BUN 14 mg/dl (6-23) 12/24/22 17:00 Creatinine 0.60 mg/dl (0.6-1.2) 12/24/22 17:00 Est Cr Clr Drug Dosing 78.4 ml/min 12/24/22 17:00 Est GFR ( Amer) 111.6 ml/min 12/24/22 17:00 Est GFR (Non-Af Amer) 96.3 ml/min 12/24/22 17:00 BUN/Creatinine Ratio 23.3 (10-20) H 12/24/22 17:00 Glucose 106 mg/dl (70-99(Fasting)) H 12/24/22 17:00 Lactate 1.1 mmol/L (0.4-2.0) 12/24/22 22:47 Calcium 10.8 mg/dl (8.6-10.3) H 12/24/22 17:00 Magnesium 1.9 mg/dl (1.7-2.4) 12/24/22 17:00 Total Bilirubin 0.9 mg/dl (0.2-1.0) 12/24/22 17:00 AST 23 U/L (13-39) 12/24/22 17:00 ALT 19 U/L (7-52) 12/24/22 17:00 Alkaline Phosphatase 57 U/L (34-104) 12/24/22 17:00 Troponin I High Sens 8.3 pg/ml (0-14) 12/24/22 17:00 Total Protein 7.7 gm/dl (6.0-8.3) 12/24/22 17:00 Albumin 4.4 gm/dl (3.4-5.0) 12/24/22 17:00 Globulin 3.3 gm/dl (2.5-4.0) 12/24/22 17:00 Albumin/Globulin Ratio 1.3 (0.9-2) 12/24/22 17:00 Lipase 93 U/L (11-82) H 12/24/22 17:00 Procalcitonin < 0.05 ng/ml (0-0.5) 12/24/22 17:00 TSH 0.687 uIu/ml (0.300-4.500) 12/24/22 17:00 Ethyl Alcohol mg/dL < 10.0 mg/dl (<10.0) 12/24/22 17:00 SARS-CoV-2, RNA, NAAT NEGATIVE (NEGATIVE) 12/24/22 17:00 Diagnostic Findings EKG as per my interpretation : Rate 90, NSR, normal axis, anteroseptal infarct, T wave abnormality septal leads, PVCs
[2022-12-24] MEDS ORDERED: LORazepam 2 MG/1 ML VIAL IV PRN ×3 (23:30)
[2022-12-24] MEDS ORDERED: Ativan IV Alcohol Withdrawal--Active Protocol IV PRN (23:30)
[2022-12-24] MEDS ORDERED: PROMETHAZINE HCL 6.25 MG in SODIUM CHLORIDE 0.9% 50 ML IV PRN (23:30)
[2022-12-24] MEDS ORDERED: GABAPENTIN 600 MG TAB PO ONE (23:30)
[2022-12-24] MEDS ORDERED: GABAPENTIN 1200MG ALCOHOL WITHDRAWAL LOAD PO STA (23:30)
[2022-12-24] MEDS ORDERED: ACETAMINOPHEN 500 MG TAB PO PRN (23:32)
[2022-12-24] MEDS ORDERED: KETOROLAC TROMETHAMINE 15 MG/ML VIAL IV PRN (23:32)
[2022-12-25] MEDS ORDERED: MELOXICAM 7.5 MG TAB PO PRN (03:06)
[2022-12-25] MEDS ORDERED: POTASSIUM CHLORIDE 10 MEQ / 100ML WTR IV ONE (03:39)
[2022-12-25] MEDS ORDERED: POTASSIUM CHLORIDE PWD 20 MEQ PACK PO STA (03:50)
[2022-12-25 04:06] LABS: Basophils # (auto) 0.01 K/uL (0-0.2); Basophils % (auto) 0.1 %; Eosinophils # (auto) 0.01 K/uL (0-0.50); Eosinophils % (auto) 0.1 %; Hematocrit (blood only) 36.8 % (37.0-47.0); Hemoglobin 13.2 g/dl (12.0-16.0); Immature Granulocytes # (auto) 0.04 K/uL (0.01-0.20); Immature Granulocytes % (auto) 0.4 %; Lymphocytes # (auto) 1.93 K/uL (1.2-3.4); Lymphocytes % (auto) 18.1 %; Mean Corpuscular Hgb Conc 35.9 g/dL (32.0-36.0); Mean Corpuscular Volume 89.1 fL (80.0-100.0); Monocytes % (auto) 7.5 %; Neutrophils % (auto) 73.8 %; Platelet Count 265 K/uL (130-400); RDW Coefficient of Variation 11.9 % (11.5-14.5); RDW Standard Deviation 38.3 fL (36.4-46.3); Red Blood Count 4.13 M/uL (4.20-5.40); White Blood Count 10.69 K/ul (4.8-10.8)
[2022-12-25 04:24] LABS: Albumin Globulin Ratio 1.3 (0.9-2); Albumin Level 3.6 gm/dl (3.4-5.0); BUN Creatinine Ratio 23.2 (10-20); Bilirubin,Total 0.8 mg/dl (0.2-1.0); Calcium 9.6 mg/dl (8.6-10.3); Est GFR (African American) 114.2 ml/min; Est GFR (Non-African American) 98.5 ml/min; Globulin 2.7 gm/dl (2.5-4.0); Potassium 3.4 mmol/L (3.5-5.1); Total Protein 6.3 gm/dl (6.0-8.3)
[2022-12-25] MEDS: traZODone HCL 50 MG TAB PO SCH ×2 (05:17→19:40)
[2022-12-25] MEDS: POTASSIUM CHLORIDE / WTR 10 MEQ/100 ML PLCT IV SCH ×2 (05:18→07:08)
[2022-12-25] MEDS: GABAPENTIN 600 MG TAB PO SCH ×3 (07:47→19:42)
[2022-12-25] MEDS ORDERED: POTASSIUM CHLORIDE CRTAB 20 MEQ TABCR PO ONE ×3 (08:02→14:00)
--- NOTE | 2022-12-25 11:41 | Electrocardiogram Report ---
Test Reason : Blood Pressure : / mmHG Vent. Rate : 088 BPM Atrial Rate : 088 BPM P-R Int : 182 ms QRS Dur : 074 ms QT Int : 370 ms P-R-T Axes : 074 057 068 degrees QTc Int : 447 ms Sinus rhythm with occasional Premature ventricular complexes Anteroseptal infarct (cited on or before 15-OCT-2022) Abnormal ECG When compared with ECG of 16-OCT-2022 05:57, Premature ventricular complexes are now Present Left posterior fascicular block is no longer Present T wave amplitude has increased in Inferior leads Confirmed by Tommy Valentin ([id number]) on 12/25/2022 11:40:56 AM Referred By: REFERRED SELF Confirmed By:Tommy Valentin
[2022-12-25] MEDS: FOLIC ACID 1 MG TAB PO SCH (12:28)
[2022-12-25] MEDS: carvediloL 6.25 MG TAB PO SCH ×2 (12:28→19:43)
[2022-12-25] MEDS: ENOXAPARIN INJ 30 MG/0.3 ML SYR SQ SCH (12:28)
[2022-12-25] MEDS: THIAMINE HCL 100 MG TAB PO SCH (12:28)
[2022-12-25] MEDS: PANTOprazole 40 MG TAB PO SCH ×2 (12:28→19:41)
[2022-12-25] MEDS: BUPRENORPHINE/NALOXONE 8/2 MG TAB SL SCH (12:35)
[2022-12-25] MEDS ORDERED: Nursing to Pharmacy Communication SCH (13:00)
--- NOTE | 2022-12-25 13:20 | Hospitalist Progress Note ---
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 Consider discharging to drug rehab if patient agrees Diarrhea Likely due to opioid withdrawal as pt received naltrexone recently as outpatient No recent antibiotic use Check stool studies to rule out infectious source Hypokalemia Likely due to GI loses Replete electrolytes as needed Monitor Reported Ambulatory dysfunction Fall precautions PT OT as able H/O Nonischemic cardiomyopathy EF 55%, TTE 2021 No signs of volume overload Monitor Hypertension Continue lisinopril, carvedilol Monitor BP Anxiety/mood disorder Continue home medications H/O Opiate abuse Currently on Suboxone DVT Px: Lovenox SQ Code Status Full code Admission and Anticipated Discharge Date Admission Date: December 24, 2022 Subjective Patient is seen and examined at bedside States feeling sleepy this morning Also reports dizziness associated with Ambulatory dysfunction Admits to have diarrhea Denies any chest pain, dyspnea, nausea, vomiting No other complaints Review of Systems Review of Systems: All systems reviewed & are unremarkable except as noted in Subjective Physical Exam Physical Exam: Physical Exam: Vitals signs as noted above General Appearance:Moderately built and nourished, no apparent distress Head: normocephalic, Atraumatic Eyes: normal inspection, EOMI Neck: supple, Trachea midline Respiratory/Chest: Normal breath sounds, CTA, No accessory muscle use Cardiovascular: S1, S2, No murmur Abdomen/GI:Soft, Non tender, Bowel sounds present Extremities/Musculoskeletal:normal inspection, no edema Neurologic/Psych:AAOX3, grossly no focal neurological deficits,+Hearing aids Skin: normal color, warm Results & Data Results & Data Vital Signs (Past 12 Hours) Vital Signs Temp Pulse Pulse Resp BP BP Pulse Ox 12/25/22 12:58 36.9 C 62 17 147/84 H 99 12/25/22 12:13 37.0 C 74 18 148/70 H 100 12/25/22 08:58 36.9 C 62 18 147/84 H 99 12/25/22 08:01 71 20 141/72 H 100 12/25/22 07:00 75 24 148/74 H 100 12/25/22 06:30 61 25 H 99 12/25/22 06:00 62 25 H 145/79 H 100 12/25/22 05:30 69 26 H 99 12/25/22 05:00 74 26 H 152/88 H 100 12/25/22 03:06 12/25/22 04:30 74 26 H 100 12/25/22 04:00 99 H 21 138/75 99 12/25/22 04:00 138/75 12/25/22 03:30 85 26 H 98 12/25/22 03:00 89 27 H 134/75 98 12/25/22 02:30 83 19 146/78 H 97 12/25/22 02:00 70 20 132/97 95 Pulse Ox O2 Del Method O2 Del Method 12/25/22 12:58 Room Air 12/25/22 12:13 Room Air 12/25/22 08:58 Room Air 12/25/22 08:01 Room Air 12/25/22 07:00 12/25/22 06:30 12/25/22 06:00 12/25/22 05:30 12/25/22 05:00 12/25/22 03:06 99 Room Air 12/25/22 04:30 12/25/22 04:00 12/25/22 04:00 12/25/22 03:30 12/25/22 03:00 12/25/22 02:30 Room Air 12/25/22 02:00 Room Air Laboratory Results Short CBC 12/24/22 12/25/22 Range/Units 17:00 03:45 WBC 12.10 H 10.69 (4.8-10.8) K/ul Hgb 15.7 13.2 (12.0-16.0) g/dl Hct 44.1 36.8 L (37.0-47.0) % Plt Count 317 265 (130-400) K/uL BMP 12/24/22 12/25/22 17:00 03:45 Sodium 138 139 Potassium 3.2 L 3.4 L Chloride 102 109 H Carbon Dioxide 24 23 BUN 14 13 Creatinine 0.60 0.56 L Glucose 106 H 108 H Calcium 10.8 H 9.6 Liver Function 12/24/22 12/25/22 Range/Units 17:00 03:45 Total Bilirubin 0.9 0.8 (0.2-1.0) mg/dl AST 23 18 (13-39) U/L ALT 19 15 (7-52) U/L Alkaline Phosphatase 57 45 (34-104) U/L Albumin 4.4 3.6 (3.4-5.0) gm/dl
[2022-12-25 13:48] LABS: Appearance Urine Clear (Clear); Bacteria Urine Automated Negative (Negative); Bilirubin Urine Negative (Negative); Blood Urine Negative (Negative); Color Urine Yellow; Epithelial Cell Urine Auto >30 /lpf (0-5); Glucose Urine UA Negative (Negative); Ketones Urine 1+ (Negative); Leukocyte Esterase Urine 1+ (Negative); Nitrite Urine Negative (Negative); Protein Urine Negative (Negative); RBC Urine Automated 0-4 /hpf (0-4); Specific Gravity Urine 1.019 (1.000-1.030); Urobilinogen Urine Negative (Negative)
[2022-12-25 14:51] LABS: Amphetamines+Metham, Urine Neg (Neg); Barbiturates, Urine Neg (Neg); Benzodiazepine, Urine Pos (Neg); Cocaine, Urine Neg (Neg); MDMA (Ecstacy), Urine Neg (Neg); Methadone, Urine Neg (Neg); Opiate, Urine Neg (Neg); Phencyclidine, Urine Neg (Neg)
[2022-12-25] MEDS ORDERED: MULTIVITAMIN TAB PO SCH (21:00)
[2022-12-25] MEDS ORDERED: lisinopril 5 MG TAB PO SCH (21:00)
[2022-12-26] MEDS ORDERED: BENZONATATE 100 MG CAPSULE PO PRN (00:03)
[2022-12-26] MEDS ORDERED: COUGH DROP (SUGAR FREE) LOZ 24 LOZ/1 BOX BUCCAL PRN (00:09)
[2022-12-26] MEDS: GABAPENTIN 600 MG TAB PO SCH ×2 (04:16→11:38)
[2022-12-26 06:13] LABS: Hematocrit (blood only) 38.5 % (37.0-47.0); Hemoglobin 13.4 g/dl (12.0-16.0); Mean Corpuscular Hgb Conc 34.8 g/dL (32.0-36.0); Mean Corpuscular Volume 91.9 fL (80.0-100.0); Platelet Count 259 K/uL (130-400); RDW Coefficient of Variation 11.7 % (11.5-14.5); RDW Standard Deviation 39.6 fL (36.4-46.3); Red Blood Count 4.19 M/uL (4.20-5.40)
[2022-12-26 06:33] LABS: Calcium 9.6 mg/dl (8.6-10.3); Est GFR (Non-African American) 95.8 ml/min; Potassium 4.3 mmol/L (3.5-5.1)
--- NOTE | 2022-12-26 07:16 | XRay Report ---
XR chest 1V portable HISTORY: new cough COMPARISON: Chest 10/15/2022. FINDINGS: No pneumothorax. No pleural effusions. The proximal is mildly enlarged. There are low lung volumes. No new focal lung consolidations to suggest a pneumonia. No evidence for pulmonary edema. No acute fractures identified. IMPRESSION: No acute process. ACT 112: Negative or not required by law. Electronically signed by: Christopher York M.D. 12/26/2022 7:15 AM
[2022-12-26] MEDS: carvediloL 6.25 MG TAB PO SCH (07:34)
[2022-12-26] MEDS: ENOXAPARIN INJ 30 MG/0.3 ML SYR SQ SCH (07:34)
[2022-12-26] MEDS: THIAMINE HCL 100 MG TAB PO SCH (07:35)
[2022-12-26] MEDS: PANTOprazole 40 MG TAB PO SCH (07:35)
[2022-12-26] MEDS: FOLIC ACID 1 MG TAB PO SCH (07:35)
[2022-12-26] MEDS: BUPRENORPHINE/NALOXONE 8/2 MG TAB SL SCH (08:35)
--- NOTE | 2022-12-26 13:43 | Hospitalist Progress Note ---
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 Plan to discharge home today Diarrhea Likely due to opioid withdrawal as pt received naltrexone recently as outpatient No recent antibiotic use Check stool studies if re-occurs to rule out infectious source Improved Hypokalemia Likely due to GI loses Replete electrolytes as needed Monitor Reported Ambulatory dysfunction Fall precautions PT OT as able H/O Nonischemic cardiomyopathy EF 55%, TTE 2021 No signs of volume overload Monitor Hypertension Continue lisinopril, carvedilol Monitor BP Anxiety/mood disorder Continue home medications H/O Opiate abuse Currently on Suboxone DVT Px: Lovenox SQ Code Status Full code Disposition Home Admission and Anticipated Discharge Date Admission Date: December 24, 2022 Subjective Patient is seen and examined at bedside States feeling well today Denies any anxiety, tremor, chest pain, dizziness, nausea, vomiting, abdominal pain, dyspnea Did well with PT this morning Eager to get discharged No other complaints Review of Systems Review of Systems: All systems reviewed & are unremarkable except as noted in Subjective Physical Exam Physical Exam: Physical Exam: Vitals signs as noted above General Appearance:Moderately built and nourished, no apparent distress Head: normocephalic, Atraumatic Eyes: normal inspection, EOMI Neck: supple, Trachea midline Respiratory/Chest: Normal breath sounds, CTA, No accessory muscle use Cardiovascular: S1, S2, No murmur Abdomen/GI:Soft, Non tender, Bowel sounds present Extremities/Musculoskeletal:normal inspection, no edema Neurologic/Psych:AAOX3, grossly no focal neurological deficits,+Hearing aids Skin: normal color, warm Results & Data Results & Data Vital Signs (Past 12 Hours) Vital Signs Temp Pulse Pulse Resp BP BP Pulse Ox 12/26/22 12:15 36.8 C 59 L 16 129/76 97 12/26/22 08:01 36.9 C 66 16 127/76 97 12/26/22 07:11 61 12/26/22 04:52 62 12 127/74 99 12/26/22 04:53 36.8 C 62 12 127/74 99 12/26/22 04:51 127/74 12/26/22 03:06 Pulse Ox O2 Del Method O2 Del Method 12/26/22 12:15 Room Air 12/26/22 08:01 Room Air 12/26/22 07:11 12/26/22 04:52 Room Air 12/26/22 04:53 Room Air 12/26/22 04:51 12/26/22 03:06 99 Room Air Laboratory Results Short CBC 12/26/22 Range/Units 05:42 WBC 7.40 (4.8-10.8) K/ul Hgb 13.4 (12.0-16.0) g/dl Hct 38.5 (37.0-47.0) % Plt Count 259 (130-400) K/uL BMP 12/26/22 05:42 Sodium 139 Potassium 4.3 D Chloride 107 Carbon Dioxide 29 BUN 11 Creatinine 0.61 Glucose 118 H Calcium 9.6 Urine 12/25/22 Range/Units Unknown Urine Color Yellow Urine Appearance Clear (Clear) Urine pH 6.0 (4.5-7.5) Ur Specific [place] 1.019 (1.000-1.030) Urine Protein Negative (Negative) Urine Glucose (UA) Negative (Negative)
--- NOTE | 2022-12-26 13:48 | Discharge Summary ---
Date of Service December 26, 2022 Admission HPI Per Admitting Provider History obtained from patient and records. Medical history significant for nonischemic cardiomyopathy (EF 55%, TTE 2021), hypertension, anxiety/mood disorder, opiate abuse on Suboxone, alcohol abuse, solitary kidney. Last confinement October 2022 for alcoholic pancreatitis. Patient received outpatient injection of Naltrexone from fundraising specialist for alcohol abuse few days ago. Last EtOH intake was 3 days ago. Shortly after, patient noted vomiting, watery diarrhea symptoms, generalized weakness. Denies headache, chest pain, SOB, unusual belly pain. Patient consulted ER for worsening symptoms. Medical History as above Surgical History : section, appendectomy Family History : Heart disease, stroke, lung cancer Personal/Social history : Non-smoker, alcohol abuse, grocery employee Admission Exam Per Admitting Provider General: Alert, oriented. No acute distress, though pt states she is in a lot of pain Skin: No noted rashes or bruises Psych: Appropriate mood and affect Neuro: No gross deficits HEENT: NC/AT CV: RRR, Normal s1, s2. Resp: Breath sounds clear bilaterally, no increased effort of breathing. Abdomen: tender diffusely Extremities: No edema in lower extremities bilaterally. Principal Diagnosis Alcohol Withdrawal Diarrhea Hypokalemia Discharge Data Allergies Allergy/AdvReac Type Severity Reaction Status Date / Time ampicillin Allergy Intermediate HIVES Verified 12/24/22 17:52 Penicillins Allergy Unknown Unknown Verified 12/24/22 17:52 Consultations 12/24/22 22:05 ED Decision to Admit Stat Procedures Performed Laboratory Results WBC 7.40 K/ul (4.8-10.8) 12/26/22 05:42 RBC 4.19 M/uL (4.20-5.40) L 12/26/22 05:42 Hgb 13.4 g/dl (12.0-16.0) 12/26/22 05:42 Hct 38.5 % (37.0-47.0) 12/26/22 05:42 MCV 91.9 fL (80.0-100.0) 12/26/22 05:42 MCH 32.0 pg (25.0-34.0) 12/26/22 05:42 MCHC 34.8 g/dL (32.0-36.0) 12/26/22 05:42 RDW Std Deviation 39.6 fL (36.4-46.3) 12/26/22 05:42 RDW Coeff of Evan 11.7 % (11.5-14.5) 12/26/22 05:42 Plt Count 259 K/uL (130-400) 12/26/22 05:42 MPV 10.0 fL (9.4-12.4) 12/26/22 05:42 Immature Gran % (Auto) 0.4 % 12/25/22 03:45 Neut % (Auto) 73.8 % 12/25/22 03:45 Lymph % (Auto) 18.1 % 12/25/22 03:45 [place] % (Auto) 7.5 % 12/25/22 03:45 Eos % (Auto) 0.1 % 12/25/22 03:45 Baso % (Auto) 0.1 % 12/25/22 03:45 Neut # (Auto) 7.90 K/uL (1.40-6.50) H 12/25/22 03:45 Lymph # (Auto) 1.93 K/uL (1.2-3.4) 12/25/22 03:45 [place] # (Auto) 0.80 K/uL (0.11-0.59) H 12/25/22 03:45 Eos # (Auto) 0.01 K/uL (0-0.50) 12/25/22 03:45 Baso # (Auto) 0.01 K/uL (0-0.2) 12/25/22 03:45 Immature Gran # (Auto) 0.04 K/uL (0.01-0.20) 12/25/22 03:45 Sodium 139 mmol/L (136-145) 12/26/22 05:42 Potassium 4.3 mmol/L (3.5-5.1) D 12/26/22 05:42 Chloride 107 mmol/L (98-107) 12/26/22 05:42 Carbon Dioxide 29 mmol/L (21-32) 12/26/22 05:42 Anion Gap 3 (3-11) 12/26/22 05:42 BUN 11 mg/dl (6-23) 12/26/22 05:42 Creatinine 0.61 mg/dl (0.6-1.2) 12/26/22 05:42 Est Cr Clr Drug Dosing 74.0 ml/min 12/26/22 05:42 Est GFR ( Amer) 111.0 ml/min 12/26/22 05:42 Est GFR (Non-Af Amer) 95.8 ml/min 12/26/22 05:42 BUN/Creatinine Ratio 18.0 (10-20) 12/26/22 05:42 Glucose 118 mg/dl (70-99(Fasting)) H 12/26/22 05:42 Lactate 1.1 mmol/L (0.4-2.0) 12/24/22 22:47 Calcium 9.6 mg/dl (8.6-10.3) 12/26/22 05:42 Magnesium 2.0 mg/dl (1.7-2.4) 12/26/22 05:42 Total Bilirubin 0.8 mg/dl (0.2-1.0) 12/25/22 03:45 AST 18 U/L (13-39) 12/25/22 03:45 ALT 15 U/L (7-52) 12/25/22 03:45 Alkaline Phosphatase 45 U/L (34-104) 12/25/22 03:45 Troponin I High Sens 8.3 pg/ml (0-14) 12/24/22 17:00 Total Protein 6.3 gm/dl (6.0-8.3) 12/25/22 03:45 Albumin 3.6 gm/dl (3.4-5.0) 12/25/22 03:45 Globulin 2.7 gm/dl (2.5-4.0) 12/25/22 03:45 Albumin/Globulin Ratio 1.3 (0.9-2) 12/25/22 03:45 Lipase 93 U/L (11-82) H 12/24/22 17:00 Procalcitonin < 0.05 ng/ml (0-0.5) 12/24/22 17:00 TSH 0.687 uIu/ml (0.300-4.500) 12/24/22 17:00 Urine Color Yellow 12/25/22 Unknown Urine Appearance Clear (Clear) 12/25/22 Unknown Urine pH 6.0 (4.5-7.5) 12/25/22 Unknown Ur Specific [place] 1.019 (1.000-1.030) 12/25/22 Unknown Urine Protein Negative (Negative) 12/25/22 Unknown Urine Glucose (UA) Negative (Negative) 12/25/22 Unknown Urine Ketones 1+ (Negative) H 12/25/22 Unknown Urine Blood Negative (Negative) 12/25/22 Unknown Urine Nitrite Negative (Negative) 12/25/22 Unknown Urine Bilirubin Negative (Negative) 12/25/22 Unknown Urine Urobilinogen Negative (Negative) 12/25/22 Unknown Ur Leukocyte Esterase 1+ (Negative) H 12/25/22 Unknown Urine WBC (Auto) 5-10 /hpf (0-5) H 12/25/22 Unknown Urine RBC (Auto) 0-4 /hpf (0-4) 12/25/22 Unknown U Hyaline Cast (Auto) 1-5 /lpf (0-5) 12/25/22 Unknown U Epithel Cells (Auto) >30 /lpf (0-5) H 12/25/22 Unknown Urine Bacteria (Auto) Negative (Negative) 12/25/22 Unknown Urine Opiates Screen Neg (Neg) 12/25/22 13:38 Ur Methadone, Qual Neg (Neg) 12/25/22 13:38 Urine Barbiturates Neg (Neg) 12/25/22 13:38 Ur Phencyclidine (PCP) Neg (Neg) 12/25/22 13:38 U Amphetamin/Meth Scrn Neg (Neg) 12/25/22 13:38 MDMA (Ecstasy) Screen Neg (Neg) 12/25/22 13:38 U Benzodiazepines Scrn Pos (Neg) H 12/25/22 13:38 Ur Cocaine Metabolite Neg (Neg) 12/25/22 13:38 U Marijuana (THC) Screen Pos (Neg) H 12/25/22 13:38 Ethyl Alcohol mg/dL < 10.0 mg/dl (<10.0) 12/24/22 17:00 SARS-CoV-2, RNA, NAAT NEGATIVE (NEGATIVE) 12/24/22 17:00 Impressions Chest X-Ray 12/26/22 00:10 XR chest 1V portable HISTORY: new cough COMPARISON: Chest 10/15/2022. FINDINGS: No pneumothorax. No pleural effusions. The proximal is mildly enlarged. There are low lung volumes. No new focal lung consolidations to suggest a pneumonia. No evidence for pulmonary edema. No acute fractures identified. IMPRESSION: No acute process. ACT 112: Negative or not required by law. Electronically signed by: Christopher York M.D. 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 Plan to discharge home today Diarrhea Likely due to opioid withdrawal as pt received naltrexone recently as outpatient No recent antibiotic use Check stool studies if re-occurs to rule out infectious source Improved Hypokalemia Likely due to GI loses Replete electrolytes as needed Monitor Reported Ambulatory dysfunction Fall precautions PT OT as able H/O Nonischemic cardiomyopathy EF 55%, TTE 2021 No signs of volume overload Monitor Hypertension Continue lisinopril, carvedilol Monitor BP Anxiety/mood disorder Continue home medications H/O Opiate abuse Currently on Suboxone DVT Px: Lovenox SQ Code Status Full code Disposition Home Total Time Total Time Spent Total Time Spent (In Minutes): 55 minutes Discharge Plan Discharge Items Patient Disposition: Home - Self-Care Reason For Visit: ETOH WITHDRAWAL Discharge Diagnosis: Alcohol Withdrawal Diarrhea Hypokalemia Activity: Per Instructions section Exercise/Sports: Gradually increase as tolerated Non-emergency contact: Primary Care Provider Call non-emergency contact if: you have any medication questions, your symptoms worsen, your pain is concerning for you and you have a fever Follow-up/Referrals: Piedad Chris MD [Primary Care Provider] - (Date & Time 12/30/2022 11:00 AM Provider Piedad Chris MD Department General Internal Medicine [facility] ) Diet: Heart Healthy Addtl Attending Provider Instructions: Follow-up with your primary care physician Dr. Chris in 1 week -- Final blood culture results are pending at the time of discharge. Follow-up with your physician for results. -- Quit drinking alcohol as advised. Seek immediate medical attention if your symptoms reoccur or worsen Please take all medications as instructed on discharge list below. Please call if you have any questions or problems. You can reach a [facility] hospitalist on duty at [facility] 24 hours a day by calling [phone] Pending Studies at Discharge: Yes Studies:: Blood Cultures Stand-Alone Forms: My [facility], Smoking Cessation Medications and DC Order Prescriptions: New gabapentin 600 mg Tablet 600 mg PO DAILY Qty: 3 0RF Continued carvedilol [Coreg] 6.25 mg tablet 6.25 mg PO BID lisinopril 5 mg tablet 5 mg PO PM ipratropium bromide 0.03 % spray,non-aerosol 2 spray INTRANASAL TID PRN (Reason: Nasal Congestion) buprenorphine-naloxone 8-2 mg tablet, sublingual 1 tab SUBLINGUAL QAM meloxicam 7.5 mg tablet 7.5 mg PO DAILY PRN (Reason: Pain) multivitamin Tablet 1 tab PO HS thiamine HCl (vitamin B1) 100 mg tablet 100 mg PO QAM folic acid 1 mg tablet 1 mg PO QAM turmeric root extract 500 mg Tablet 500 mg PO BID sennosides [senna] 8.6 mg Tablet 8.6 mg PO BID omeprazole 20 mg capsule,delayed release(DR/EC) 20 mg PO AMPM trazodone 50 mg tablet 50 mg PO HS Discharge Orders: Discharge Order (Routine); Ordered 12/26/22 Ordered By: Angel Epps Admission Data Admit Date/Time: 12/24/22 23:29 Attending Provider: Angel Epps Admit Provider: Jeffrey Morel Primary Care Provider: Piedad Chris Other Providers: Jeffrey Morel
[2022-12-27] MEDS ORDERED: GABAPENTIN 600 MG TAB PO SCH
[2022-12-27] MEDS ORDERED: ENOXAPARIN INJ 40 MG/0.4 ML SYR SQ SCH (09:00)
[2022-12-28 07:53] LABS: 7-Aminoclonaz, Confirm NEGATIVE ng/mL (<25); Hydro-Alp Ur, GC/MS 38 ng/mL (<25); Hydroxyethylflurazepam, Conf NEGATIVE ng/mL (<50); Hydroxymidazolam Ur, GC/MS NEGATIVE ng/mL (<50); Hydroxytriazolam NEGATIVE ng/mL (<50); Lorazepam, Ur GC/MS 646 ng/mL (<50); Marijuana Quant, GCMS Urine 87 ng/mL (<5); Nordiazepam, Confirm NEGATIVE ng/mL (<50); Oxazepam Ur, GC/MS NEGATIVE ng/mL (<50); Temazepam, Confirm NEGATIVE ng/mL (<50)
[2022-12-28] MEDS ORDERED: GABAPENTIN 600 MG TAB PO SCH (12:00)
== END 2022-12-26 13:55 | disposition home or self-care (01) | DRG 897 ==
LOC: ED 16:18 → EDINP 23:29 → 2W 12-25 08:01